=== PATIENT | male | born 1970 ===

== ENCOUNTER 2020-08-11 11:28 | Outpatient (REF) | payer BC, SELFPAY ==
[2020-08-11 14:01] LABS: MANUAL DIFF FLAG NO
[2020-08-11 14:02] LABS: Basophils Absolute Auto 0.1 X10*3/uL (0.0-0.2); Basophils Percent Auto 0.7 % (0-2); Eosinophils Absolute Auto 0.2 X10*3/uL (0.0-0.4); Hematocrit 47.1 % (42-52); Imm Gran Abs Auto 0.03 X10*3/uL (0.00-0.03); Imm Gran Pct Auto 0.4 % (0.0-0.4); Lymphocytes Absolute Auto 1.6 X10*3/uL (1.2-4.9); Lymphocytes Percent Auto 22.3 % (20-40); Mean Corpuscular Hemoglobin 31.4 pg (27.0-33.0); Mean Corpuscular Volume 92.4 fL (80-98); Mean Platelet Volume 10.1 fL (9.4-12.4); Monocytes Absolute Auto 0.3 X10*3/uL (0.1-1.2); Monocytes Percent Auto 4.2 % (2-11); Neutrophils Absolute Auto 5.2 X10*3/uL (2.0-8.3); Neutrophils Percent Auto 70.4 % (45-73); Platelet Count 203 X10*3/uL (160-400); Red Cell Distribution Width 11.9 % (11.0-16.0); White Blood Count 7.3 X10*3/uL (4.8-10.8)
[2020-08-11 14:08] LABS: Glucose Urine UA NEG (NEG); Leukocyte Esterase Urine NEG (NEG); Nitrite Urine NEG (NEG); PH 5.5 (5.0-8.0); Urine Blood NEG (NEG); Urine Ketones NEG (NEG); Urine Protein NEG (NEG-TRACE)
[2020-08-11 14:09] LABS: Appearance Urine CLEAR; Color Urine YELLOW; UACC Culture Trigger NO
[2020-08-11 14:28] LABS: Anion Gap 13 (12-20); Blood Urea Nitrogen 15 mg/dL (9-16); Calcium 9.2 mg/dL (8.4-10.2); Carbon Dioxide 28 mmol/L (22-29); Chloride 105 mmol/L (96-108); Estimated Glomerular Filt Rate > 60; Glucose Random 90 mg/dL (60-115); Potassium 4.8 mmol/l (3.3-5.1); Sodium 141 mmol/L (135-145)
[2020-08-11 14:45] LABS: Estimated Average Glucose 111 mg/dL; Hemoglobin A1c % 5.5 %
[2020-08-11 14:51] LABS: TSH reflex Free T4 0.78 mIU/mL (0.32-4.0)
[2020-08-12 07:01] LABS: LDL Cholesterol Direct 125 mg/dL (<100)
== END 2020-08-11 11:29 | disposition home or self-care (01) ==
LOC: HO.HMGCLDS 11:28
PROVIDERS: PCP Internal Medicine; Visit Provider Internal Medicine
DX: E66.9 Obesity, unspecified (principal); E78.9 Disorder of lipoprotein metabolism, unspecified; R73.03 Prediabetes; Z72.0 Tobacco use; R39.198 Other difficulties with micturition
CPT/HCPCS: 36415; 80048; 81003; 83036; 83721; 84443; 85025

== ENCOUNTER → 2020-09-22 13:20 | Outpatient (BNVA) | payer BC, SELFPAY | PROVIDERS: Visit Provider Urology | DX: Z76.89 Persons encountering health services in other specified circumstances (principal) ==

== ENCOUNTER 2020-10-30 11:23 | Outpatient (REF) | payer BC, SELFPAY ==
[2020-11-05 14:47] LABS: Testosterone, Free 50.5 pg/mL (35.0-155.0); Testosterone, Total 244 ng/dL (250-1100)
== END 2020-10-30 11:24 | disposition home or self-care (01) ==
LOC: HO.HMGCLDS 11:23
PROVIDERS: PCP Internal Medicine; Visit Provider Urology
DX: E29.1 Testicular hypofunction (principal); R39.12 Poor urinary stream
CPT/HCPCS: 36415; 84402; 84403

== ENCOUNTER → 2020-11-06 15:28 | Outpatient (BNVA) | payer BC, SELFPAY | PROVIDERS: PCP Internal Medicine; Visit Provider Urology ==

== ENCOUNTER 2020-11-13 10:27 | Outpatient (REF) | payer BC, SELFPAY ==
--- NOTE | ~2020-11-13 | US_ITS ---
EXAMINATION: US PELVIS LIMITED (BLADDER) CLINICAL INFORMATION: Poor urinary stream. COMPARISON: None TECHNIQUE: Real-time imaging of the bladder. FINDINGS: BLADDER: Well distended and normal. Bilateral ureteral jets are demonstrated. Prevoid bladder volume is 248 mL. Postvoid bladder volume is 76 mL. Prostate volume is 69.5 mL. There is moderate enlargement of the prostate with extension into the base of the bladder. US/US bladder IMPRESSION: [id number] postvoid residual bladder volume. [id number] prostate enlargement extending into the base of the bladder.
[2020-11-13 17:27] LABS: Prostate Specific Antigen 4.82 ng/mL (<0.05-4.0)
[2020-11-15 00:32] LABS: Follicle Stimulating Hormone 5.6 mIU/mL (1.6-8.0); Lutenizing Hormone 2.8 mIU/mL (1.5-9.3)
[2020-11-16 22:33] LABS: Estradiol Ultra Sensitive 21 pg/mL (< OR = 29)
[2020-11-22 15:16] LABS: Testosterone, Free 59.8 pg/mL (35.0-155.0); Testosterone, Total 286 ng/dL (250-1100)
== END 2020-11-13 10:28 | disposition home or self-care (01) ==
LOC: HO.HMGCX 10:27
PROVIDERS: Visit Provider Urology
DX: R39.12 Poor urinary stream (principal); N40.1 Benign prostatic hyperplasia with lower urinary tract symptoms; N13.8 Other obstructive and reflux uropathy; E29.1 Testicular hypofunction; R68.82 Decreased libido
CPT/HCPCS: 36415; 76857; 82670; 83001; 83002; 84153; 84402; 84403

== ENCOUNTER → 2020-12-18 14:52 | Outpatient (BNVA) | payer BC, SELFPAY | PROVIDERS: PCP Internal Medicine; Visit Provider Urology ==

== ENCOUNTER 2021-01-22 11:13 | Outpatient (REF) | payer BC, SELFPAY ==
[2021-01-22 15:08] LABS: Prostate Specific Antigen 5.34 ng/mL (<0.05-4.0)
[2021-01-23 10:21] LABS: Lutenizing Hormone 5.1 mIU/mL (1.5-9.3)
[2021-01-27 12:07] LABS: Testosterone, Free 78.7 pg/mL (35.0-155.0); Testosterone, Total 382 ng/dL (250-1100)
== END 2021-01-22 11:14 | disposition home or self-care (01) ==
LOC: HO.HMGCLDS 11:13
PROVIDERS: PCP Internal Medicine; Visit Provider Urology
DX: E29.1 Testicular hypofunction (principal); R39.12 Poor urinary stream; Z12.5 Encounter for screening for malignant neoplasm of prostate
CPT/HCPCS: 36415; 83002; 84153; 84402; 84403

== ENCOUNTER → 2021-01-28 15:45 | Outpatient (BNVA) | payer BC, SELFPAY | PROVIDERS: PCP Internal Medicine; Visit Provider Urology ==

== ENCOUNTER 2021-03-22 12:17 | Outpatient (REF) | payer BC, SELFPAY ==
[2021-03-22 13:51] LABS: MANUAL DIFF FLAG NO
[2021-03-22 14:06] LABS: Basophils Percent Auto 0.3 % (0-2); Eosinophils Absolute Auto 0.1 X10*3/uL (0.0-0.4); Eosinophils Percent Auto 1.9 % (0-4); Hemoglobin 14.8 g/dl (14.0-18.0); Imm Gran Abs Auto 0.01 X10*3/uL (0.00-0.03); Imm Gran Pct Auto 0.1 % (0.0-0.4); Lymphocytes Absolute Auto 1.9 X10*3/uL (1.2-4.9); Lymphocytes Percent Auto 25.3 % (20-40); Mean Corpuscular HGB Conc 32.9 g/dl (31.0-36.0); Mean Corpuscular Hemoglobin 30.3 pg (27.0-33.0); Mean Platelet Volume 10.1 fL (9.4-12.4); Monocytes Absolute Auto 0.4 X10*3/uL (0.1-1.2); Monocytes Percent Auto 5.2 % (2-11); Neutrophils Absolute Auto 4.9 X10*3/uL (2.0-8.3); Neutrophils Percent Auto 67.2 % (45-73); Platelet Count 170 X10*3/uL (160-400); Red Blood Count 4.89 X10*6/uL (4.60-5.80); Red Cell Distribution Width 12.4 % (11.0-16.0); White Blood Count 7.3 X10*3/uL (4.8-10.8)
[2021-03-22 14:16] LABS: Alanine Aminotransferase 27 U/L (0-40); Albumin Level 4.3 g/dL (3.5-5.0); Alkaline Phosphatase 33 U/L (39-117); Anion Gap 12 (12-20); Aspartate Amino Transferase 19 U/L (5-37); Bilirubin Total 0.4 mg/dL (0.0-1.0); Blood Urea Nitrogen 18 mg/dL (9-16); Calcium 9.4 mg/dL (8.4-10.2); Carbon Dioxide 24 mmol/L (22-29); Chloride 109 mmol/L (96-108); Estimated Glomerular Filt Rate > 60; Glucose Random 99 mg/dL (60-115); Potassium 4.5 mmol/L (3.3-5.1); Sodium 140 mmol/L (135-145); Total Protein 6.5 g/dL (6.5-8.0)
[2021-03-22 14:43] LABS: Erythrocyte Sedimentation Rate 1 MM/HR (0-15)
== END 2021-03-22 12:18 | disposition home or self-care (01) ==
LOC: HO.LAB 12:17
PROVIDERS: PCP Internal Medicine; Visit Provider Physician Assistant
DX: Z01.818 Encounter for other preprocedural examination (principal); R10.11 Right upper quadrant pain; R13.10 Dysphagia, unspecified; R19.7 Diarrhea, unspecified; R74.01 Elevation of levels of liver transaminase levels
CPT/HCPCS: 36415; 80053; 85025; 85652; 86140

== ENCOUNTER 2021-06-07 08:43 | Day surgery (SDC) | payer BC, SELFPAY ==
[2021-06-01 14:07] VITALS: BMI 38.6
--- NOTE | 2021-06-04 08:51 | HO.ANESPROP2 ---
Documented by User: Kassie Pretty NP 06/04/21 08:53 HPI - Anesthesia Eval Consult details Narrative: 51yo M for Upper Endoscopy and Colonoscopy [facility] Active Problems Active Problems: All Active Problems (Updated 06/01/21 @ 14:10 by Taya Sanchez, ANA MARIA) Weak urinary stream (Acute) Low libido (Acute) BPH w urinary obs/LUTS (Acute) Low testosterone (Acute) Encounter for general adult medical examination with abnormal findings (Acute) Sleep-wake schedule disorder, frequently changing type (Acute) Colon cancer screening (Acute) Difficulty swallowing (Acute) Abdominal pain (Acute) Difficulty urinating (Acute) Obesity (Acute) Lung nodule < 6cm on CT (Acute) Erectile disorder, generalized, mild (Acute) Lipid disorder (Acute) Pre-diabetes (Acute) Tobacco abuse (Acute) Past Medical History Medical History COVID-19 vaccine series completed Difficulty urinating Erectile disorder, generalized, mild Lipid disorder Lung nodule < 6cm on CT Obesity Pre-diabetes Sleep apnea Tobacco abuse Family History Family History Father Bipolar disorder Alzheimer's disease, early onset Mother Breast cancer Fibromyalgia Maternal Grandfather No problems noted. Maternal Grandmother Type 2 diabetes mellitus Paternal Grandfather Pancreatic cancer Paternal Grandmother Lung cancer Smoker Sister No problems noted. Sister No problems noted. Son No problems noted. Surgical History Surgical History History of adenoidectomy History of ankle surgery Social History Social History Household Members Other:: and son- Are you a primary wound care specialist to a significant other at home: No Do you presently have visiting nurse or other home services: No Alcohol intake: current Alcohol intake frequency: holidays/special occasions only Patient Tobacco Use Status: Current everyday Tobacco user Tobacco use type: Cigarette Cigarette Packs Per Day: 0.5 Cigarettes Per Day: 10 Use of substances other than those prescribed or required for medical reasons: No Are you DNR?: No Advance Directives Information Provided: No (states is -will look for HCP form to bring copy DOS) Advance Directives on File: No Recently lost weight without trying: No Eating poorly because of decreased appetite: No Nutrition Risks: No Nutritional Risk Current occupation: Retired - [employer] Meds Allergies Allergy/AdvReac Type Severity Reaction Status Date / Time tamsulosin AdvReac Stomach Verified 06/04/21 12:13 Upset Environmental Allergy Mild allergy Uncoded 06/01/21 14:12 symptoms Home Medications Medication Instructions Recorded Confirmed Last Taken Type cholecalciferol (vitamin D3) 25 25 mcg PO DAILY 08/11/20 06/01/21 Unknown History mcg (1,000 unit) capsule Exam Exam Date and Time: June 04, 2021 0851 Height,Weight and Vital Signs: Height 6 ft Weight 129.274 kg Pertinent Lab Results Pertinent Lab Results: Laboratory Tests 03/22/21 03/22/21 13:35 13:35 WBC 7.3 Hgb 14.8 Hct 45.0 Plt Count 170 Sodium 140 Potassium 4.5 Chloride 109 H Carbon Dioxide 24 BUN 18 H Creatinine 1.23 Assessment and Plan Assessment Anesthesia Assessment: Chart Reviewed Documented by User: Saida Bustamante MD 06/07/21 09:52 PMFSH Past Medical History Medical History COVID-19 vaccine series completed Difficulty urinating Erectile disorder, generalized, mild Lipid disorder Lung nodule < 6cm on CT Obesity Pre-diabetes Sleep apnea Tobacco abuse Family History Family History Father Bipolar disorder Alzheimer's disease, early onset Mother Breast cancer Fibromyalgia Maternal Grandfather No problems noted. Maternal Grandmother Type 2 diabetes mellitus Paternal Grandfather Pancreatic cancer Paternal Grandmother Lung cancer Smoker Sister No problems noted. Sister No problems noted. Son No problems noted. Surgical History Surgical History History of adenoidectomy History of ankle surgery History of Problems with Anesthesia: No Social History Social History Household Members Other:: and son- Are you a primary wound care specialist to a significant other at home: No Do you presently have visiting nurse or other home services: No Alcohol intake: current Alcohol intake frequency: holidays/special occasions only Patient Tobacco Use Status: Current everyday Tobacco user Tobacco use type: Cigarette Cigarette Packs Per Day: 0.5 Cigarettes Per Day: 10 Use of substances other than those prescribed or required for medical reasons: No Are you DNR?: No Advance Directives Information Provided: No (states is -will look for HCP form to bring copy DOS) Advance Directives on File: No Recently lost weight without trying: No Eating poorly because of decreased appetite: No Nutrition Risks: No Nutritional Risk Current occupation: Retired - [employer] Meds Allergies Allergy/AdvReac Type Severity Reaction Status Date / Time tamsulosin AdvReac Stomach Verified 06/04/21 12:13 Upset Environmental Allergy Mild allergy Uncoded 06/01/21 14:12 symptoms Home Medications Medication Instructions Recorded Confirmed Last Taken Type cholecalciferol (vitamin D3) 25 25 mcg PO DAILY 08/11/20 06/01/21 Unknown History mcg (1,000 unit) capsule Exam Airway Mallampati Class: II TM Dist: >3cm Neck ROM: Full Heart: RRR Lungs: CTA Assessment and Plan Final Anesthetic Review History of Problems with Anesthesia: No
[2021-06-07 09:13] VITALS: BP 131/86; PULSE 77; RESP 18; TEMP 36.6; O2SAT 97
[2021-06-07] MEDS: Lactated Ringers 1,000 ML 100 ML IVCONT (09:18)
--- NOTE | 2021-06-07 09:25 | MHC.SHP ---
Pre-Procedural Eval Section A Date of Service: 06/07/21 Section B Chief Complaint: Screening, Dysphagia Details of Present Illness: hx of panreas cancer Relevant Family History (Specify if Yes): Yes Relevant Social History: Tobacco Use Present Medications: see Short Stay Collaborative assessment Medical History: Significant History (Difficulty urinating Erectile disorder, generalized, mild Lipid disorder Lung nodule < 6cm on CT Obesity Pre-diabetes Sleep apnea Tobacco abuse) History of Previous Operations: Relevant previous surgery/procedure and date(s) (History of adenoidectomy History of ankle surgery) Allergies: Allergies Allergy/AdvReac Type Severity Reaction Status Date / Time tamsulosin AdvReac Stomach Verified 06/04/21 12:13 Upset Environmental Allergy Mild allergy Uncoded 06/01/21 14:12 symptoms Review of Systems Sugical H&P ROS: Negative: Constitution, Cardiovascular, Respiratory, Neurological, Psychiatric, Hem-Onc, Allergic/Immunologic, Gastrointestinal, Genitourinary, Musculoskeletal, Integumentary, Endocrine and Eyes/Ears/Nose/Throat Exam Surgical H&P Exam: Normal: HEENT, Normal: Heart, Normal: Lungs, Normal: Extremities, Normal: Abdomen, Normal: Skin and Normal: Neurological Plan Diagnosis/Plan: Unchanged I have reviewed the history and physical and performed a pertinent physical examination on my patient. No changes have occurred unless specified.
--- NOTE | 2021-06-07 10:20 | P.OP_ITS ---
Operative Note Operative Note Date of Service: 06/07/21 Narrative: Operative Information Procedure Description: EGD, Colonoscopy FLEXIBLE TRANSORAL UPPER GASTROINTESTINAL ENDOSCOPY AND COLONOSCOPY PROCEDURE NOTE UPPER ENDOSCOPY Consent: Indications for the procedure and potential complications of bleeding, perforation, reaction to medications and missed diagnosis were discussed with the patient and informed consent was obtained. Instrument: Olympus GIF H 190 J mid size upper endoscope Monitoring: Vital signs and clinical assessment, continuous EKG monitoring, Pulse oximetry, Carbon Dioxide monitoring and blood pressure monitoring were done throughout the procedure. Procedure: The patient was placed in the left lateral decubitis position and pre-procedure medications were administered and a bite block was placed. The endoscope was inserted into the mouth and advanced under direct vision to the third part of duodenum. A careful inspection was made as the upper endoscope was withdrawn including a retroflexed examination of the proximal stomach; Findings and interventions are described below. Findings: Larynx:normal Esophagus: GE junction at 42 cm, diaphragm hiatus at 42 cm, LA grade A erosive esophagitis with few islands of barretts appearing mucosa, bx taken from GEJ and random esophagus. LEs extremely lax. Balloon dilation done in lower esophagus and UES, no tears noted. Stomach: Patchy erythematous mucosa. Biopsies were obtained. Grade 3 flap valve on retroflexed examination of the cardia. Duodenum: Normal bulb and descending duodenum, bx taken Intervention: Biopsies as noted above COLONOSCOPY Instrument: Olympus variable stiffness adult scope 190L Colonoscopy Monitoring: Vital signs and clinical assessment, continuous EKG monitoring, Pulse oximetry, Carbon Dioxide monitoring and blood pressure monitoring were done throughout the procedure. Colon withdrawal time was 6 minutes. Procedure: The patient was placed in the left lateral decubitis position and pre-procedure medications were administered. After a digital rectal examination of the ano-rectum, the video colonoscope was inserted into the rectum and advanced through the colon to the cecum/TI. The colonoscope was slowly withdrawn in a retrograde panoramic fashion and the colon mucosa was carefully examined including a retroflexed view of the rectum. Findings and interventions are described below. Procedure Difficulty:easy Findings: Terminal Ileum-normal Cecum: 10 mm sessile polyp at appendiceal orifice removed with cold snare Ascending Colon: normal Transverse Colon -normal Descending Colon:normal Sigmoid Colon: normal Rectum: Retroflexion with small internal hemorrhoids, grade I Anorectum - normal Colon preparation: Hastings Bowel Preparation Scale Right colon; 2 Transverse colon: 2 Left colon; 2 (0 = Unprepared colon segment with mucosa not seen due to solid stool that cannot be cleared. 1 = Portion of mucosa of the colon segment seen, but other areas of the colon segment not well seen due to staining, residual stool and/or opaque liquid. 2 = Minor amount of residual staining, small fragments of stool and/or opaque liquid, but mucosa of colon segment seen well. 3 = Entire mucosa of colon segment seen well with no residual staining, small fragments of stool or opaque liquid) Impression and Post Procedure Diagnosis: Endoscopy Findings: erosive esophagitis gastritis possible barretts Colonoscopy Findings: polyp internal hemorrhoids Plan: Await Pathology results Repeat Colonoscopy in 5 years due to polyp found today or earlier if clinically indicated High fiber diet leaflet avoid straining at stool, epsom salts and sitz bath, anusol supps or cream reflux precautions consider increasing omeprazole dose to 40 mg OD Above findings were reviewed with the patient and relevant handouts were provided if indicated.
--- NOTE | 2021-06-07 10:20 | P.BOP_ITS ---
Brief Operative Note Date of Service: 06/07/21 Pre-op diagnosis: globus sensation and lower abdo pain, screening colonoscopy Post-op diagnosis: same Procedure: see op note Surgeon: Christopher Lake MD Anesthesia: MAC Was an Blasting Cap Assembler used for this Procedure?: No Estimated blood loss (mL): 0 Condition: stable Disposition: PACU
[2021-06-07 11:23] VITALS: BP 116/71; PULSE 78; RESP 16; TEMP 36.1; O2SAT 95
[2021-06-07 11:38] VITALS: BP 133/81; PULSE 73; RESP 18; TEMP 36.1; O2SAT 99
--- NOTE | 2021-06-07 13:22 | HO.POSTANES ---
Post Anesthesia Evaluation Post Anesthesia Evaluation Vital Signs: Vital Signs Temp Pulse Resp BP Pulse Ox 06/07/21 11:38 97.0 F 73 18 133/81 99 06/07/21 11:23 97 F 78 16 116/71 95 06/07/21 09:13 97.8 F 77 18 131/86 97 Anesthesia: Monitored Mental Status: Awake Pain Control: Satisfactory Nausea/Vomiting: None Hydration: Adequate Anesthesia-Related Issues: No Anes. Related Issues
== END 2021-06-07 12:15 | disposition home or self-care (01) ==
PROVIDERS: PCP Internal Medicine; Visit Provider Internal Medicine Gastroenterology
PROC: (CPT 45385; principal; 2021-06-07 10:20)
DX: Z12.11 Encounter for screening for malignant neoplasm of colon (principal); D12.0 Benign neoplasm of cecum; K64.0 First degree hemorrhoids; R13.10 Dysphagia, unspecified; K22.8 Other specified diseases of esophagus; K29.50 Unspecified chronic gastritis without bleeding; K20.80 Other esophagitis without bleeding; R73.03 Prediabetes; R91.1 Solitary pulmonary nodule; G47.30 Sleep apnea, unspecified; F17.210 Nicotine dependence, cigarettes, uncomplicated; Z79.899 Other long term (current) drug therapy
CPT/HCPCS: 45385; 43249; 43239; 88305; 88342; C1726

== ENCOUNTER → 2021-06-17 11:30 | Outpatient (BNVA) | payer BC, SELFPAY | PROVIDERS: PCP Internal Medicine; Visit Provider Physician Assistant ==

== ENCOUNTER → 2021-06-22 08:30 | Outpatient (BNVA) | payer BC, SELFPAY | PROVIDERS: PCP Internal Medicine; Referring Provider Internal Medicine; Visit Provider Psychiatry & Neurology Neurology ==

== ENCOUNTER 2021-06-30 08:43 | Outpatient (REF) | payer BC, SELFPAY ==
--- NOTE | ~2021-06-30 | US_ITS ---
EXAMINATION: US ABDOMEN COMPLETE CLINICAL INFORMATION: Abdominal pain. COMPARISON: Ultrasound bladder 11/13/2020. TECHNIQUE: Real-time imaging of the abdominal viscera. FINDINGS: PANCREAS: The head of the pancreas is normal. The body and tail are not well visualized due to bowel gas. ABDOMINAL AORTA: The distal segment is normal in caliber. The upper and mid abdominal aorta is not well visualized due to bowel gas. INFERIOR VENA CAVA: Not well visualized due to bowel gas. LIVER: Liver echotexture is increased. The liver is slightly enlarged.. The liver contour is normal. No focal hepatic lesion. There is no intrahepatic biliary duct dilatation seen. GALLBLADDER: There is a 6 x 7 mm echogenic lesion adjacent to the gallbladder wall that does not shadow questionable for a polyp versus adherent bile or sludge. No definite gallstones are seen. The gallbladder is normal in size. The gallbladder wall is normal in thickness.. COMMON BILE DUCT: Normal in caliber measuring 0.4 cm in diameter. RIGHT KIDNEY: Normal. No hydronephrosis. No renal calculi or focal parenchymal lesions. The kidney measures 12.6 cm in maximum dimension. LEFT KIDNEY: Normal. No hydronephrosis. No renal calculi or focal parenchymal lesions. The kidney measures 12.6 cm in maximum dimension. SPLEEN: Normal. The spleen measures 12.7 cm in maximum dimension. FREE FLUID: None. US/US abdomen complete IMPRESSION: Slightly enlarged echogenic liver probably representing fatty infiltration. Question a 6 x 7 mm gallbladder wall polyp versus adherent bile or sludge. Limited visualization of the pancreas and aorta.
[2021-06-30 11:54] LABS: Blood Urea Nitrogen 15 mg/dL (9-16); Estimated Glomerular Filt Rate > 60
== END 2021-06-30 08:44 | disposition home or self-care (01) ==
LOC: HO.HMGCX 08:43
PROVIDERS: PCP Internal Medicine; Visit Provider Physician Assistant
DX: R10.9 Unspecified abdominal pain (principal); K21.9 Gastro-esophageal reflux disease without esophagitis
CPT/HCPCS: 36415; 76700; 82565; 84520

== ENCOUNTER 2021-07-05 08:38 | Outpatient (REF) | payer BC, SELFPAY ==
--- NOTE | ~2021-07-05 | CT_ITS ---
EXAMINATION: CT ABDOMEN AND PELVIS WITH CONTRAST CLINICAL INFORMATION: Abdominal pain. COMPARISON: None. TECHNIQUE: Multidetector volumetric images were obtained from the superior aspect of the liver through the pubic symphysis following administration 85 mL of Omnipaque 350 intravenous contrast. Sagittal and coronal reformatted images were obtained on the technologist's workstation. Oral contrast: No This CT examination was performed using dose optimization techniques as appropriate, variously including the following: *Automated exposure control *Adjustment of mA and/or kV according to patient size (this includes techniques or standardized protocols for targeted exams where dose is matched to indication/reason for exam; i.e. extremities or head) *Use of iterative reconstruction technique DLP: 822 mGy-cm. FINDINGS: LUNG BASES: The visualized lung bases are unremarkable. LIVER, GALLBLADDER, AND BILIARY TREE: The liver is enlarged in size measuring 19 cm, normal shape, and diffusely hypoattenuated. No focal hepatic lesion or biliary ductal dilatation is present. The gallbladder is unremarkable with no evidence of radiopaque gallstones, gallbladder wall thickening, or obvious pericholecystic inflammatory changes. PANCREAS: Unremarkable. SPLEEN: Unremarkable. ADRENAL GLANDS: Unremarkable. KIDNEYS AND URETERS: The kidneys are normal in size, shape, and attenuation. No hydronephrosis, hydroureter, or calculi seen. No perinephric stranding. BLADDER: Unremarkable. GASTROINTESTINAL TRACT: There is moderate scattered stool and gas seen throughout the colon without distention. The appendix is normal caliber. The small bowel loops and the terminal ileum appears normal. ABDOMINAL WALL: There is mild focal atrophy lateral abdominal wall internal oblique muscle musculature resulting in small incomplete hernia on axial image 36/3. LYMPH NODES: There are small retroperitoneal lymph nodes. The largest left retrocrural lymph node measures 1.1 cm axial image 37/3. VASCULAR: There is mild sclerotic changes of abdominal aorta without aneurysmal dilatation. PELVIC VISCERA: The prostate gland is mildly enlarged. There is a 1.4 cm heterogeneous nodule left pelvis with eccentric focal calcification. Question fat necrosis. Best visualized on axial image 74/3. OSSEOUS STRUCTURES: No lytic or sclerotic process seen. There is mild ventral spondylosis lower dorsal spine. CT/CT abdomen pelvis w con IMPRESSION: No acute intra-abdominal process seen. Mild constipation. Left lateral abdominal wall incomplete hernia. Hepatic steatosis with borderline hepatomegaly. No focal lesion seen.
[2021-07-05] MEDS: iohexoL 350 MG/ML 100 ML INFUS..BTL 85 ML IV (09:15)
== END 2021-07-05 08:39 | disposition home or self-care (01) ==
LOC: HO.CT 08:38
PROVIDERS: Visit Provider Physician Assistant
DX: R10.9 Unspecified abdominal pain (principal)
CPT/HCPCS: 74177; Q9967

== ENCOUNTER 2021-07-07 08:11 | Outpatient (REF) | payer BC, SELFPAY ==
[2021-07-07 11:34] LABS: MANUAL DIFF FLAG NO
[2021-07-07 11:40] LABS: Basophils Percent Auto 0.6 % (0-2); Eosinophils Absolute Auto 0.2 X10*3/uL (0.0-0.4); Eosinophils Percent Auto 4.8 % (0-4); Hematocrit 40.7 % (42-52); Hemoglobin 13.8 g/dl (14.0-18.0); Imm Gran Abs Auto 0.01 X10*3/uL (0.00-0.03); Imm Gran Pct Auto 0.2 % (0.0-0.4); Lymphocytes Absolute Auto 1.5 X10*3/uL (1.2-4.9); Lymphocytes Percent Auto 29.1 % (20-40); Mean Corpuscular HGB Conc 33.9 g/dl (31.0-36.0); Mean Corpuscular Hemoglobin 30.7 pg (27.0-33.0); Mean Corpuscular Volume 90.6 fL (80-98); Mean Platelet Volume 10.3 fL (9.4-12.4); Monocytes Absolute Auto 0.4 X10*3/uL (0.1-1.2); Monocytes Percent Auto 8.6 % (2-11); Neutrophils Absolute Auto 2.8 X10*3/uL (2.0-8.3); Neutrophils Percent Auto 56.7 % (45-73); Platelet Count 162 X10*3/uL (160-400); Red Blood Count 4.49 X10*6/uL (4.60-5.80); Red Cell Distribution Width 12.2 % (11.0-16.0)
[2021-07-07 12:02] LABS: Alanine Aminotransferase 31 U/L (0-40); Alkaline Phosphatase 37 U/L (39-117); Anion Gap 9 (12-20); Aspartate Amino Transferase 28 U/L (5-37); Bilirubin Total 0.2 mg/dL (0.0-1.0); Blood Urea Nitrogen 21 mg/dL (9-16); Calcium 8.7 mg/dL (8.4-10.2); Carbon Dioxide 26 mmol/L (22-29); Chloride 109 mmol/L (96-108); Cholesterol 180 mg/dL; Estimated Glomerular Filt Rate > 60; Glucose Fasting 109 mg/dL (60-99); HDL Cholesterol 33 mg/dL; LDL Cholesterol Calculated 106 mg/dl; Potassium 4.4 mmol/L (3.3-5.1); Sodium 140 mmol/L (135-145); Total Protein 5.9 g/dL (6.5-8.0); Triglycerides 207 mg/dL
[2021-07-07 12:05] LABS: Estimated Average Glucose 105 mg/dL; Hemoglobin A1c % 5.3 %
[2021-07-11 16:36] LABS: Testosterone, Free 34.5 pg/mL (35.0-155.0); Testosterone, Total 146 ng/dL (250-1100)
== END 2021-07-07 08:12 | disposition home or self-care (01) ==
LOC: HO.HMGCLDS 08:11
PROVIDERS: Urology; PCP Internal Medicine; Visit Provider Internal Medicine
DX: E78.9 Disorder of lipoprotein metabolism, unspecified (principal); E66.9 Obesity, unspecified; R73.03 Prediabetes; E29.1 Testicular hypofunction; R79.89 Other specified abnormal findings of blood chemistry; Z72.0 Tobacco use
CPT/HCPCS: 36415; 80053; 80061; 83036; 84402; 84403; 85025

== ENCOUNTER → 2021-07-30 10:21 | Outpatient (BNVA) | payer BC, SELFPAY | PROVIDERS: PCP Internal Medicine; Visit Provider Urology ==

== ENCOUNTER → 2021-08-02 19:28 | Outpatient (REF) | payer BC, SELFPAY | LOC: HO.SL 19:28 | PROVIDERS: PCP Internal Medicine; Visit Provider Psychiatry & Neurology Neurology | DX: G47.10 Hypersomnia, unspecified (principal); R06.83 Snoring | CPT/HCPCS: 95810 ==

== ENCOUNTER 2022-01-31 11:44 | Outpatient (REF) | payer BC, SELFPAY ==
[2022-01-31 14:39] LABS: Prostate Specific Antigen 5.05 ng/mL (<0.05-4.0)
[2022-02-05 11:17] LABS: Testosterone, Total 283 ng/dL (250-1100)
== END 2022-01-31 11:45 | disposition home or self-care (01) ==
LOC: HO.HMGCLDS 11:44
PROVIDERS: Visit Provider Urology
DX: Z12.5 Encounter for screening for malignant neoplasm of prostate (principal); R79.89 Other specified abnormal findings of blood chemistry
CPT/HCPCS: 36415; 84153; 84403

== ENCOUNTER → 2022-02-04 11:32 | Outpatient (BNVA) | payer BC, SELFPAY | PROVIDERS: PCP Internal Medicine; Visit Provider Urology | DX: Z13.89 Encounter for screening for other disorder (principal) ==

== ENCOUNTER 2022-02-09 06:00 | Outpatient (REF) | payer BC, SELFPAY ==
[2022-02-09 11:17] LABS: MANUAL DIFF FLAG NO
[2022-02-09 11:25] LABS: Basophils Percent Auto 0.7 % (0-2); Eosinophils Absolute Auto 0.3 X10*3/uL (0.0-0.4); Eosinophils Percent Auto 5.6 % (0-4); Hematocrit 42.8 % (42.0-52.0); Imm Gran Abs Auto 0.01 X10*3/uL (0.00-0.03); Imm Gran Pct Auto 0.2 % (0.0-0.4); Lymphocytes Absolute Auto 1.7 X10*3/uL (1.2-4.9); Lymphocytes Percent Auto 27.7 % (20-40); Mean Corpuscular HGB Conc 32.7 g/dl (31.0-36.0); Mean Corpuscular Hemoglobin 30.2 pg (27.0-33.0); Mean Corpuscular Volume 92.4 fL (80.0-98.0); Mean Platelet Volume 10.2 fL (9.4-12.4); Monocytes Absolute Auto 0.3 X10*3/uL (0.1-1.2); Monocytes Percent Auto 5.3 % (2-11); Neutrophils Absolute Auto 3.7 x10*3/uL (2.0-8.3); Neutrophils Percent Auto 60.5 % (45-73); Platelet Count 172 X10*3/uL (160-400); Red Blood Count 4.63 X10*6/uL (4.60-5.80); Red Cell Distribution Width 12.3 % (11.0-16.0); White Blood Count 6.1 X10*3/uL (4.8-10.8)
[2022-02-09 11:36] LABS: Estimated Average Glucose 114 mg/dL; Hemoglobin A1c % 5.6 %
[2022-02-09 11:46] LABS: Alanine Aminotransferase 17 U/L (0-40); Alkaline Phosphatase 37 U/L (39-117); Anion Gap 11 (12-20); Aspartate Amino Transferase 20 U/L (5-37); Bilirubin Total 0.4 mg/dL (0.0-1.0); Blood Urea Nitrogen 14 mg/dL (9-16); Carbon Dioxide 23 mmol/L (22-29); Chloride 109 mmol/L (96-108); Cholesterol 189 mg/dL; Estimated Glomerular Filt Rate > 60; Glucose Fasting 110 mg/dL (60-99); HDL Cholesterol 32 mg/dL; LDL Cholesterol Calculated 104 mg/dl; Potassium 4.3 mmol/L (3.3-5.1); Sodium 139 mmol/L (135-145); Total Protein 6.1 g/dL (6.5-8.0); Triglycerides 269 mg/dL
== END 2022-02-09 06:01 | disposition home or self-care (01) ==
LOC: HO.HMGCLDS 06:00
PROVIDERS: Visit Provider Internal Medicine
DX: E66.9 Obesity, unspecified (principal); E78.9 Disorder of lipoprotein metabolism, unspecified; R73.03 Prediabetes; Z72.0 Tobacco use
CPT/HCPCS: 36415; 80053; 80061; 83036; 85025

== ENCOUNTER 2022-03-15 07:37 | Outpatient (REF) | payer BC, SELFPAY ==
[2022-03-15 07:45] VITALS: BMI 38.0
[2022-03-15 07:46] VITALS: BP 151/87; PULSE 86; RESP 16; TEMP 36.7; O2SAT 96
--- NOTE | 2022-03-15 08:22 | W.PM.OPN ---
Operative Note Operative Note Date of Service: 03/15/22 Narrative: Preoperative diagnosis: Elevated PSA Postoperative diagnosis: Elevated PSA Procedure: 1. transrectal ultrasound measurement of prostate 2. transrectal ultrasound-guided pudendal nerve block 3. transrectal ultrasound-guided prostate biopsy 12 core Surgeon: Dr. Akhil Tripathi Anesthetic: Local Indications for procedure: Elevated PSA 5.1 Procedure: After informed consent was verified, the patient was brought into the procedure area and lay left-hand side down on the table. Patient identity confirmed. Perioperative antibiotics confirmed. Iodine 10cc with Gel was placed per rectum Ultrasound probe was placed per rectum The prostate was measured in 3 dimensions Total volume equals 70 gm There were no cystic structures and no calcifications noted and the prostate was homogeneous in nature A ultrasound-guided pudendal nerve block was performed using 10 cc of 1% lidocaine. 8 cc was placed at the base and 2 cc of the apex. A 12 core biopsy was performed with 6 cores each side. Two cores were taken at the apex, mid and base. Cores were spaced between lateral and medial. He tolerated the procedure well. Was able to ambulate to bathroom after 5 minutes. Printed instructions regarding antibiotic use and common side effects such as low-grade temperature and bleeding were given Pathology: 12 core prostate biopsy.
== END 2022-03-15 07:38 | disposition home or self-care (01) ==
LOC: HO.MS 07:37
PROVIDERS: PCP Internal Medicine; Visit Provider Urology
PROC: (CPT 55700; principal; 2022-03-15 08:00)
DX: R97.20 Elevated prostate specific antigen [PSA] (principal)
CPT/HCPCS: 55700; 76942; 88305

== ENCOUNTER 2022-09-16 12:01 | Outpatient (REF) | payer BC, SELFPAY ==
[2022-09-23 01:43] LABS: Testosterone, Total 323 ng/dL (250-1100)
== END 2022-09-16 12:02 | disposition home or self-care (01) ==
LOC: HO.HMGCLDS 12:01
PROVIDERS: Visit Provider Urology
DX: E29.1 Testicular hypofunction (principal); R79.89 Other specified abnormal findings of blood chemistry; Z12.5 Encounter for screening for malignant neoplasm of prostate
CPT/HCPCS: 36415; 84153; 84403

== ENCOUNTER 2023-02-24 06:06 | Outpatient (REF) | payer BC, SELFPAY ==
[2023-02-24 11:25] LABS: MANUAL DIFF FLAG NO
[2023-02-24 11:54] LABS: Basophils Percent Auto 0.7 % (0-2); Eosinophils Absolute Auto 0.2 X10*3/uL (0.0-0.4); Eosinophils Percent Auto 4.3 % (0-4); Hematocrit 45.9 % (42.0-52.0); Hemoglobin 15.2 g/dl (14.0-18.0); Imm Gran Abs Auto 0.01 X10*3/uL (0.00-0.03); Imm Gran Pct Auto 0.2 % (0.0-0.4); Lymphocytes Absolute Auto 1.7 X10*3/uL (1.2-4.9); Lymphocytes Percent Auto 30.7 % (20-40); Mean Corpuscular HGB Conc 33.1 g/dl (31.0-36.0); Mean Corpuscular Volume 90.5 fL (80.0-98.0); Mean Platelet Volume 10.2 fL (9.4-12.4); Monocytes Absolute Auto 0.4 X10*3/uL (0.1-1.2); Monocytes Percent Auto 6.4 % (2-11); Neutrophils Absolute Auto 3.3 x10*3/uL (2.0-8.3); Neutrophils Percent Auto 57.7 % (45-73); Platelet Count 187 X10*3/uL (160-400); Red Blood Count 5.07 X10*6/uL (4.60-5.80); Red Cell Distribution Width 12.3 % (11.0-16.0); White Blood Count 5.6 X10*3/uL (4.8-10.8)
[2023-02-24 12:29] LABS: Estimated Average Glucose 111 mg/dL; Hemoglobin A1c % 5.5 %
[2023-02-24 12:35] LABS: Alanine Aminotransferase 32 U/L (0-40); Albumin Level 4.1 g/dL (3.5-5.0); Alkaline Phosphatase 44 U/L (39-117); Anion Gap 11 (12-20); Aspartate Amino Transferase 22 U/L (5-37); Bilirubin Total 0.5 mg/dL (0.0-1.0); Blood Urea Nitrogen 17 mg/dL (9-16); Calcium 9.4 mg/dL (8.4-10.2); Carbon Dioxide 25 mmol/L (22-29); Chloride 111 mmol/L (96-108); Cholesterol 188 mg/dL; Estimated Glomerular Filt Rate > 60; Glucose Fasting 120 mg/dL (60-99); HDL Cholesterol 29 mg/dL; LDL Cholesterol Calculated 115 mg/dl; Potassium 4.6 mmol/L (3.3-5.1); Prostate Specific Antigen 7.32 ng/mL (<0.05-4.0); Sodium 142 mmol/L (135-145); Total Protein 6.2 g/dL (6.5-8.0); Triglycerides 222 mg/dL
[2023-02-24 12:37] LABS: TSH reflex Free T4 1.32 uIU/mL (0.32-4.0)
[2023-03-02 11:03] LABS: Testosterone, Total 254 ng/dL (250-1100)
== END 2023-02-24 06:07 | disposition home or self-care (01) ==
LOC: HO.HMGCLDS 06:06
PROVIDERS: Urology; PCP Internal Medicine; Visit Provider Internal Medicine
DX: Z00.01 Encounter for general adult medical examination with abnormal findings (principal); Z12.5 Encounter for screening for malignant neoplasm of prostate; R79.89 Other specified abnormal findings of blood chemistry; R73.03 Prediabetes; E66.01 Morbid (severe) obesity due to excess calories; E78.9 Disorder of lipoprotein metabolism, unspecified; Z72.0 Tobacco use
CPT/HCPCS: 36415; 80053; 80061; 83036; 84153; 84403; 84443; 85025

== ENCOUNTER 2023-03-22 05:51 | Inpatient (IN) | payer BC, SELFPAY ==
--- NOTE | ~2023-03-22 | CT_ITS ---
EXAMINATION: CT ABDOMEN AND PELVIS WITH CONTRAST CLINICAL INFORMATION: Pancreatitis COMPARISON: CT abdomen pelvis 07/05/2021 TECHNIQUE: Multidetector volumetric images were obtained from the superior aspect of the liver through the pubic symphysis following administration 85 mL of Omnipaque 350 intravenous contrast. Sagittal and coronal reformatted images were obtained on the technologist's workstation. Oral contrast: No This CT examination was performed using dose optimization techniques as appropriate, variously including the following: *Automated exposure control *Adjustment of mA and/or kV according to patient size (this includes techniques or standardized protocols for targeted exams where dose is matched to indication/reason for exam; i.e. extremities or head) *Use of iterative reconstruction technique DLP: 157 mGy-cm FINDINGS: LUNG BASES: The visualized lung bases are unremarkable. LIVER, GALLBLADDER, AND BILIARY TREE: The liver is enlarged measuring 21.4 cm in greatest dimension. Attenuation is decreased consistent with hepatic steatosis. No focal hepatic lesion or biliary ductal dilatation is present. There is a small amount of pericholecystic fluid present. Some of this could be secondary to inflammatory change from pancreatitis (see below). No calcified gallstones are seen. PANCREAS: The pancreas is abnormal with inflammatory change surrounding the majority of the gland consistent with pancreatitis. No portion of the gland lacks enhancement to suggest necrosis. No well-formed fluid collections are seen. SPLEEN: Spleen is enlarged at 13.7 cm. ADRENAL GLANDS: Unremarkable. KIDNEYS AND URETERS: The kidneys are normal in size, shape, and attenuation. No hydronephrosis, hydroureter, or calculi seen. No perinephric stranding. BLADDER: Unremarkable. GASTROINTESTINAL TRACT: There is some mild inflammatory change around the second and third portions of the duodenum presumably secondary to above-mentioned pancreatitis. The small and large bowel are otherwise unremarkable. The appendix is unremarkable. ABDOMINAL WALL: No significant hernia is appreciated. Tiny periumbilical hernia seen containing only fat. LYMPH NODES: No retroperitoneal lymphadenopathy. Some small preaortic lymph nodes are unchanged. VASCULAR: Unremarkable. Portal venous system widely patent. No splenic vein thrombosis. No pseudoaneurysms. PELVIC VISCERA: There is mild BPH. Seminal vesicles appear normal. OSSEOUS STRUCTURES: Unremarkable. CT/CT abdomen pelvis w IV con IMPRESSION: 1. Acute uncomplicated pancreatitis. 2. Enlarged fatty liver with associated mild splenomegaly. 3. Other incidental findings as described above. Fleischner guidelines were followed.
--- NOTE | ~2023-03-22 | US_ITS ---
EXAMINATION: US ABDOMEN LIMITED CLINICAL INFORMATION: Increased LFTs. Question common bile duct stone. COMPARISON: Previous CT of the abdomen and pelvis from earlier the same day TECHNIQUE: Real-time imaging of the right upper quadrant abdominal viscera. FINDINGS: PANCREAS: Not seen due to bowel gas LIVER: Liver echotexture is increased suggestive of fatty infiltration. Liver is slightly enlarged. The liver is normal in contour.. No focal hepatic lesion. There is no intrahepatic biliary duct dilatation seen. GALLBLADDER: Gallbladder is normal in size. There is a 9 x 6 x 8 mm echogenic nonmobile nonshadowing density adjacent to the gallbladder wall suggestive of a polyp. No definite gallstones are seen. The gallbladder wall does not appear thickened or edematous. No pericholecystic fluid is seen. The photo technologist does not report that the patient is tender over the gallbladder. COMMON BILE DUCT: Normal in caliber measuring 0.4 cm in diameter. RIGHT KIDNEY: Normal. No hydronephrosis. No renal calculi or focal parenchymal lesions. The kidney measures 11.8 cm in maximum dimension. FREE FLUID: None. US/US abdomen limited IMPRESSION: Enlarged echogenic liver suggestive of fatty infiltration. Normal caliber intrahepatic and extrahepatic bile ducts. No common bile duct stone seen. Probable gallbladder wall polyp measuring 9 x 6 x 8 mm. Six-month gallbladder ultrasound follow-up recommended. No gallstones.
[2023-03-22 05:58] VITALS: BP 118/66; BP 123/67; PULSE 80; PULSE 86; RESP 16; TEMP 36.4; O2SAT 92; O2SAT 95; BMI 38.0
--- NOTE | 2023-03-22 06:04 | ED_ITS ---
HPI - Abdominal Pain General Chief Complaint: Abdominal Pain Stated Complaint: abd pain Time Seen by Provider: 03/22/23 06:04 Source: patient Mode of arrival: EMS Limitations: no limitations History of Present Illness HPI narrative: Patient has history of chronic GERD had buffalo chicken and 23:00 last night woke up at 03:00 with diffuse abdominal pain and distension with loose watery bowel movements and nausea and vomiting a few times no fever no chills pain is diffuse in abdomen patient at same food and she does not have any symptoms no prior history of similar abdominal pain no prior abdominal surgeries no recent alcohol use Related Data Previous Rx's Medication Instructions Recorded omeprazole 20 mg capsule,delayed 40 mg PO DAILY 30 days #60 caps 06/17/21 release terazosin 5 mg capsule 5 mg PO BEDTIME #90 caps 02/04/22 clomiphene citrate 50 mg tablet 50 mg PO .COMPLEX hypogonadism 90 03/22/22 days #60 tabs sildenafil 100 mg tablet 100 mg PO ONCE PRN sexual activity 09/22/22 30 days #30 tabs tadalafil 10 mg tablet 10 mg PO DAILY PRN sexual activity 09/22/22 90 days #90 tabs tadalafil 20 mg tablet 20 mg PO ONCE PRN sexual activity 09/22/22 30 days #30 tabs Allergies Allergy/AdvReac Type Severity Reaction Status Date / Time tamsulosin AdvReac Stomach Verified 02/17/23 08:37 Upset Environmental Allergy Mild allergy Uncoded 09/22/22 09:42 symptoms Review of Systems Review of Systems Yes all other systems are reviewed and are negative PMFSH Past Medical History Medical History COVID-19 vaccine series completed Difficulty urinating Erectile disorder, generalized, mild Lipid disorder Lung nodule < 6cm on CT Obesity Pre-diabetes Sleep apnea Tobacco abuse Surgical History History of adenoidectomy History of ankle surgery History of esophagogastroduodenoscopy (EGD) Hx of colonoscopy Family History Family History Father Bipolar disorder Alzheimer's disease, early onset Mother Breast cancer Fibromyalgia Maternal Grandfather No problems noted. Maternal Grandmother Type 2 diabetes mellitus Paternal Grandfather Pancreatic cancer Paternal Grandmother Lung cancer Smoker Sister No problems noted. Sister No problems noted. Son No problems noted. Social History Social History Household Members Other:: and son- Housing: House Are you a primary palliative care specialist to a significant other at home: No Do you presently have visiting nurse or other home services: No Alcohol intake: never Patient Tobacco Use Status: Current everyday Tobacco user Tobacco use type: Cigarette Cigarette Packs Per Day: 0.5 Cigarettes Per Day: 10 Smoked in Last 30 Days: No Use of substances other than those prescribed or required for medical reasons: No Advance Directives: No Current occupational status: employed and retired Current occupation: Retired - [employer] Cognitive needs: No Hearing needs: No Vision needs: No Physical Exam ED Vital Signs: Vital Signs - 24 hr 03/22/23 05:58 Temperature 97.5 F Pulse Rate 80 Respiratory Rate 16 Blood Pressure 118/66 Pulse Oximetry 92 Oxygen Delivery Method Room Air BMI result Body Mass Index 38.0 Appearance: Alert. Oriented X3. No acute distress. Eyes: No pallor/icterus ENT: Pharynx normal. Oral Mucosa moist Neck: Normal inspection. Neck supple. CVS: Normal heart rate and rhythm. Pulses normal. Respiratory: No respiratory distress. Equal air entry bilateral, Abdomen: Soft diffuse tenderness no rebound tenderness or guarding. Bowel sounds are present, no mass palpable, no CVA tenderness Skin: Skin warm and dry. Normal skin color. Normal skin turgor. Extremities: No lower extremity edema. No calf tenderness Neuro: Oriented X 3. Medical Decision Making Medical Decision Making [facility] Narrative: Patient likely with a viral gastroenteritis/pancreatitis, will check labs IV fluids IV Zofran Patient non alcoholic with normal triglyceride the past lab workup showed elevated lipase and LFTs likely pancreatitis possible from gallstone patient although never had history of gallstones will do CT scan planned for admission patient signed out to Dr. Brizuela for disposition after CT scan Differential Diagnosis Differential Diagnoses: The differential diagnosis associated with the presentation includes Gastritis/gastroenteritis/pancreatitis/cholecystitis Lab Data [facility] Lab Attestation statement: I reviewed the patient's lab results. 03/22/23 06:18 03/22/23 06:18 Labs: Lab Results 03/22/23 03/22/23 Range/Units 06:18 06:18 WBC 10.1 (4.8-10.8) X10*3/uL RBC 5.10 (4.60-5.80) X10*6/uL Hgb 15.5 (14.0-18.0) g/dl Hct 45.9 (42.0-52.0) % MCV 90.0 (80.0-98.0) fL MCH 30.4 (27.0-33.0) pg MCHC 33.8 (31.0-36.0) g/dl RDW 12.2 (11.0-16.0) % Plt Count 181 (160-400) X10*3/uL MPV 9.7 (9.4-12.4) fL Immature Gran % (Auto) 0.3 (0.0-0.4) % Neut % (Auto) 80.0 H (45-73) % Lymph % (Auto) 12.6 L (20-40) % [place] % (Auto) 5.2 (2-11) % Eos % (Auto) 1.6 (0-4) % Baso % (Auto) 0.3 (0-2) % Lymph # (Auto) 1.3 (1.2-4.9) X10*3/uL [place] # (Auto) 0.5 (0.1-1.2) X10*3/uL Eos # (Auto) 0.2 (0.0-0.4) X10*3/uL Baso # (Auto) 0.0 (0.0-0.2) X10*3/uL Abs Immat Gran (auto) 0.03 (0.00-0.03) X10*3/uL Absolute Neuts (auto) 8.1 (2.0-8.3) x10*3/uL Absolute Nucleated RBC 0.000 (0.0-0.012) X10*3/uL Nucleated RBC % (auto) 0.0 (0.0-0.2) /100WBC Sodium 143 (135-145) mmol/L Potassium 4.3 (3.3-5.1) mmol/L Chloride 111 H (96-108) mmol/L Carbon Dioxide 26 (22-29) mmol/L Anion Gap 10 L (12-20) BUN 14 (9-16) mg/dL Creatinine 1.09 (0.5-1.4) mg/dL Estim Creat Clear Calc 107.9 Estimated GFR > 60 Random Glucose 166 H (60-115) mg/dL Calcium 9.3 (8.4-10.2) mg/dL Total Bilirubin 0.8 (0.0-1.0) mg/dL AST 135 H (5-37) U/L ALT 101 H (0-40) U/L Alkaline Phosphatase 50 (39-117) U/L Total Protein 6.4 L (6.5-8.0) g/dL Albumin 4.0 (3.5-5.0) g/dL Lipase > 3000 H (8-78) U/L Medications Administered Discontinued Medications Generic Name Dose Route Start Last Admin Trade Name Freq PRN Reason Stop Dose Admin Sodium Chloride 1,000 mls @ 999 mls/hr 03/22/23 06:05 03/22/23 06:33 Ns IV 03/22/23 07:05 999 mls/hr .Q1H1M ONE Administration Morphine Sulfate 2 mg 03/22/23 06:32 03/22/23 06:36 Morphine Sulfate 2 Mg/Ml Cartridge IVPUSH 03/22/23 06:33 2 mg ONCE ONE Administration Protocol Ondansetron HCl 4 mg 03/22/23 06:05 03/22/23 06:33 Ondansetron Hcl 4 Mg/2 Ml Vial IVPUSH 03/22/23 06:06 4 mg ONCE ONE Administration Discharge Plan Discharge Clinical Impression: Acute pancreatitis Patient Disposition: Still a Patient Prescriptions: No Action omeprazole 20 mg capsule,delayed release(DR/EC) 40 mg PO DAILY 30 Days Qty: 60 8RF tadalafil 20 mg tablet 20 mg PO ONCE PRN (Reason: sexual activity) 30 Days Qty: 30 0RF tadalafil 10 mg tablet 10 mg PO DAILY PRN (Reason: sexual activity) 90 Days Qty: 90 1RF sildenafil 100 mg tablet 100 mg PO ONCE PRN (Reason: sexual activity) 30 Days Qty: 30 1RF Rx Instructions: administer 60 minutes before intended activity terazosin 5 mg capsule 5 mg PO BEDTIME Qty: 90 2RF clomiphene citrate 50 mg tablet 50 mg PO .COMPLEX 90 Days Qty: 60 3RF Rx Instructions: 50 mg orally three times a week; $[id number] [facility]
[2023-03-22 06:21] LABS: MANUAL DIFF FLAG NO
[2023-03-22 06:31] LABS: Basophils Percent Auto 0.3 % (0-2); Eosinophils Absolute Auto 0.2 X10*3/uL (0.0-0.4); Eosinophils Percent Auto 1.6 % (0-4); Hematocrit 45.9 % (42.0-52.0); Hemoglobin 15.5 g/dl (14.0-18.0); Imm Gran Abs Auto 0.03 X10*3/uL (0.00-0.03); Imm Gran Pct Auto 0.3 % (0.0-0.4); Lymphocytes Absolute Auto 1.3 X10*3/uL (1.2-4.9); Lymphocytes Percent Auto 12.6 % (20-40); Mean Corpuscular HGB Conc 33.8 g/dl (31.0-36.0); Mean Corpuscular Hemoglobin 30.4 pg (27.0-33.0); Mean Platelet Volume 9.7 fL (9.4-12.4); Monocytes Absolute Auto 0.5 X10*3/uL (0.1-1.2); Monocytes Percent Auto 5.2 % (2-11); Neutrophils Absolute Auto 8.1 x10*3/uL (2.0-8.3); Platelet Count 181 X10*3/uL (160-400); Red Cell Distribution Width 12.2 % (11.0-16.0); White Blood Count 10.1 X10*3/uL (4.8-10.8)
[2023-03-22] MEDS: ondansetron HCL 4 MG/2 ML VIAL IVPUSH ×2 (06:33→14:58)
[2023-03-22] MEDS: 0.9 % Sodium Chloride 1,000 ML 999 ML IV (06:33)
[2023-03-22] MEDS: Morphine Sulfate 2 MG/ML CARTRIDGE IVPUSH ×2 (06:36→07:11)
[2023-03-22 06:45] LABS: Alanine Aminotransferase 101 U/L (0-40); Alkaline Phosphatase 50 U/L (39-117); Anion Gap 10 (12-20); Aspartate Amino Transferase 135 U/L (5-37); Bilirubin Total 0.8 mg/dL (0.0-1.0); Blood Urea Nitrogen 14 mg/dL (9-16); Calcium 9.3 mg/dL (8.4-10.2); Carbon Dioxide 26 mmol/L (22-29); Chloride 111 mmol/L (96-108); Creatinine Clr Calc Pharmacy 107.9; Estimated Glomerular Filt Rate > 60; Glucose Random 166 mg/dL (60-115); Lipase > 3000 U/L (8-78); Potassium 4.3 mmol/L (3.3-5.1); Sodium 143 mmol/L (135-145); Total Protein 6.4 g/dL (6.5-8.0)
[2023-03-22] MEDS: iohexoL 350 MG/ML 100 ML INFUS..BTL 85 ML IV (07:46)
--- NOTE | 2023-03-22 08:33 | PHA.MEDREC ---
Pharmacy Consult ? Medication Reconciliation Pharmacy has completed the medication reconciliation.
[2023-03-22] MEDS: HYDROmorphone HCl 2 MG/ML VIAL IVPUSH (09:35)
[2023-03-22] MEDS: 0.9 % Sodium Chloride 1,000 ML 150 ML IVCONT (09:37)
--- NOTE | 2023-03-22 12:17 | PM.IMHP ---
History of Present Illness Date of Service: 03/22/23 Attending physician on admission: Reji Salinas Chief Complaint: abd pain 53-year-old male with history of morbid obesity, GERD, BPH had recent biopsy, erectile disorder: Patient came to the hospital because patient having abdominal pain is is left upper and mid abdomen , nausea vomiting of 1d ay duration. Patient says that he has on and off abdominal discomfort from 1months but it was not as bad as currently. he said yesterday he ate buffalo chicken wing-started having severe abdominal pain nausea vomiting after that . Denies any fever or chills. Is is abdominal pain is mostly left-sided radiating that to the back, sharp, 9/10 intensity, got somewhat better with the pain medications. Denies any new complaint of chest pain or shortness of breath or fever or chills or cough or weakness or numbness. Lab imaging reviewed : cbc seems fine. bmp:bun/cr : 14/1.09 ast/alt: 135/[address] abd: Acute uncomplicated pancreatitis. Enlarged fatty liver with associated mild splenomegaly. Review of Systems Review of Systems: as above. [facility] Medical History COVID-19 vaccine series completed Difficulty urinating Erectile disorder, generalized, mild Lipid disorder Lung nodule < 6cm on CT Obesity Pre-diabetes Sleep apnea Tobacco abuse Family History Father Bipolar disorder Alzheimer's disease, early onset Mother Breast cancer Fibromyalgia Maternal Grandfather No problems noted. Maternal Grandmother Type 2 diabetes mellitus Paternal Grandfather Pancreatic cancer Paternal Grandmother Lung cancer Smoker Sister No problems noted. Sister No problems noted. Son No problems noted. Surgical History History of adenoidectomy History of ankle surgery History of esophagogastroduodenoscopy (EGD) Hx of colonoscopy Social History Household Members Other:: and son- Housing: House Are you a primary manager respiratory care to a significant other at home: No Do you presently have visiting nurse or other home services: No Alcohol intake: never Patient Tobacco Use Status: Current everyday Tobacco user Tobacco use type: Cigarette Cigarette Packs Per Day: 0.5 Cigarettes Per Day: 10 Smoked in Last 30 Days: No Use of substances other than those prescribed or required for medical reasons: No Advance Directives: No Current occupational status: employed and retired Current occupation: Retired - [employer] Cognitive needs: No Hearing needs: No Vision needs: No Meds Allergies Allergy/AdvReac Type Severity Reaction Status Date / Time tamsulosin AdvReac Stomach Verified 02/17/23 08:37 Upset Environmental Allergy Mild allergy Uncoded 09/22/22 09:42 symptoms Active Medications: Current Medications Doxazosin Mesylate (Doxazosin Mesylate 2 Mg Tablet) 4 mg PO BEDTIME SARAH Enoxaparin Sodium (Enoxaparin Sodium 40 Mg/0.4 Ml Syringe) 40 mg SUBCUT Q24H [facility] Sodium Chloride (Ns) 1,000 mls @ 150 mls/hr IVCONT .Q6H40M [facility] Last Admin: 03/22/23 09:37 Dose: 150 mls/hr Lactated Ringer's (Lr) 1,000 mls @ 125 mls/hr IVCONT .Q8H SARAH Morphine Sulfate (Morphine Sulfate 4 Mg/Ml Cartridge) 3 mg IVPUSH Q4H PRN; Protocol PRN Reason: Pain, Mild (Pain Scale 1-3) Ondansetron HCl (Ondansetron Hcl 4 Mg/2 Ml Vial) 4 mg IVPUSH Q4H PRN PRN Reason: nausea Pantoprazole Sodium (Pantoprazole Sodium 40 Mg/10 Ml Vial) 40 mg IVPUSH BID [facility] Sodium Chloride (0.9 % Sodium Chloride Flush 3 Ml Syringe) 3 ml IVFLUSH QSHIFT [facility] Physical Exam Vital Signs and Narrative: Vital Signs: Last Vital Signs Temp 97.5 F 03/22/23 05:58 Pulse 80 03/22/23 05:58 Resp 16 03/22/23 05:58 BP 118/66 03/22/23 05:58 Pulse Ox 92 03/22/23 05:58 O2 Del Method Room Air 03/22/23 05:58 BMI result Body Mass Index 38.0 Appearance: Alert.? Oriented X3.?has abd pain.? Eyes: Pupils equal, round and reactive to light.? Sclera nonicteric.? ENT: Pharynx normal.? Moist mucous membranes. cvs: rrr, [id number] , no murmur res: clear to auscultation ,no rhonchii or wheezing abd: no rebound or guarding ,left mid abd pain, bs present. ext pulses present , no cyanosis . neuro: axo3 , nonfocal. Results Labs 03/22/23 06:18 03/22/23 06:18 Labs: Laboratory Results - last 24 hr 03/22/23 03/22/23 06:18 06:18 MCV 90.0 MCH 30.4 MCHC 33.8 RDW 12.2 Plt Count 181 MPV 9.7 Immature Gran % (Auto) 0.3 Neut % (Auto) 80.0 H Lymph % (Auto) 12.6 L [place] % (Auto) 5.2 Eos % (Auto) 1.6 Baso % (Auto) 0.3 Lymph # (Auto) 1.3 [place] # (Auto) 0.5 Eos # (Auto) 0.2 Baso # (Auto) 0.0 Abs Immat Gran (auto) 0.03 Absolute Neuts (auto) 8.1 Absolute Nucleated RBC 0.000 Nucleated RBC % (auto) 0.0 Anion Gap 10 L Estim Creat Clear Calc 107.9 Estimated GFR > 60 Random Glucose 166 H Calcium 9.3 Total Bilirubin 0.8 AST 135 H ALT 101 H Alkaline Phosphatase 50 Total Protein 6.4 L Albumin 4.0 Lipase > 3000 H Imaging Radiologist's Impressions: Impressions Abdomen/Pelvis CT 03/22/23 07:40 IMPRESSION: 1. Acute uncomplicated pancreatitis. 2. Enlarged fatty liver with associated mild splenomegaly. 3. Other incidental findings as described above. Fleischner guidelines were followed. Assessment and Plan (1) Acute pancreatitis: Status: Acute (2) Morbid obesity due to excess calories: Status: Acute (3) Elevated PSA: Status: Acute (4) Erectile dysfunction: Status: Acute Plan 53-year-old male with history of morbid obesity, GERD, BPH had recent biopsy, erectile disorder: 1. Acute pancreatitis-? Etiology unclear He said he quit alcohol few months back ALT AST elevated,lipase in 3000, mild fatty liver changes/splenomegaly on CT scan. Will add abdominal ultrasound, added hepatitis screen, lipid panel Bowel rest, IV fluid, pain management with IV morphine, antiemetics. Trend BMP and LFTs, lipase level. Gi eval 2. GERD: Switched to PPI. 3. The erectile disorder: Continue home medications. 4. BPH: Elevated PSA, status post recent biopsy Continue terazosin, patient says that he follows up outpatient with Dr. Tripathi. 5. Mild hyperglycemia:? Possible related to acute sickness/pancreatitis/IV fluids Will check hemoglobin A1c level. DVT prophylaxis: SubQ Lovenox Patient may benefit from inpatient stay for 2 days-considering acute pancreatitis and able to tolerate food need IV hydration and IV pain medications as well as GI workup. Time Spent With Patient Time: Total time managing care of this patient today ____ minutes. Quality Stroke Does the patient have a stroke diagnosis?: No VTE Prior VTE?: No VTE Risk Level:: Medical - moderate - high VTE Device Contraindication: N/A - Device Ordered VTE Drug Contraindication: N/A - Med Ordered
[2023-03-22] MEDS: Lactated Ringers 1,000 ML 125 ML IVCONT ×2 (12:43→21:07)
[2023-03-22] MEDS: Pantoprazole Sodium 40 MG/10 ML VIAL IVPUSH ×2 (12:45→19:35)
[2023-03-22 12:49] LABS: HBc Num1 0.05 S/CO (0.00-0.79); Hepatitis B Core Antibody Nonreactive (Nonreactive); Hepatitis B Surface Antigen Negative (Negative); ~HepC Num1 0.05 S/CO (0.00-0.79); ~Hepatitis A Antibody IgM Nonreactive (Nonreactive); ~Hepatitis B Surface Antibody NONREACTIVE (Nonreactive); ~Hepatitis C Antibody Nonreactive (Nonreactive)
--- NOTE | 2023-03-22 13:39 | PM.GICN ---
History of Present Illness Data of Consult Service Date: 03/22/23 Requesting physician: Reji Salinas Primary Care Provider: Aidee Walker MD HPI Reason for consult: pancreatitis 53-year-old male with history of morbid obesity, GERD, BPH and fatty liver being seen for assessment for pancreatitis. Patient had 1 d of worsening severe 9/10, sharp epigastric pain radiating into the back with nausea and non bloody emesis. sx seem to have came after eating buffalo chicken wing. No exacerbating factors but better with pain medications. Denies any fever or chills. No chest pain or shortness of breath. he does admit to getting similar pains on and off maybe once a month, usu worse with milk and dairy. These attacks are usu mild and never require admission, going on fro few years now. He denies alcohol use but is a smoker 3/4 pack per day, no new drugs and no herbal meds. Grandfather had pancreas cancer. Lab cbc normal bmp:bun/cr : 14/1.09 ast/alt: 135/101 Lipase >3000 IMAGING: ?Acute uncomplicated pancreatitis. ?Enlarged fatty liver with associated mild splenomegaly. Review of Systems Review of Systems: Constitutional : No Weight loss, No Fever, No Chills ENT/Mouth : No sore throat, No Rhinorrhea Eyes: No Swelling, No Redness Cardiovascular : No Chest Pain, No SOB, No Edema Respiratory : No Cough, No Sputum, No Wheezing Gastrointestinal : see HPI Genitourinary : NO Dysuria, No Urinary Frequency, No Hematuria, No Urgency Musculoskeletal : No joint pain, No Myalgias, No Joint Swelling Skin : No Skin Lesions, No rash Neuro : No Weakness, No Numbness, No Dizziness, No Headache Psych : No Anxiety/Panic, No Depression Heme/Lymph: No Bruising, No Lymphadenopathy Endocrine : No Polyuria, No Polydipsia All other systems reviewed and are negative. [facility] Past Medical History Medical History COVID-19 vaccine series completed Difficulty urinating Erectile disorder, generalized, mild Lipid disorder Lung nodule < 6cm on CT Obesity Pre-diabetes Sleep apnea Tobacco abuse Family History Family History Father Bipolar disorder Alzheimer's disease, early onset Mother Breast cancer Fibromyalgia Maternal Grandfather No problems noted. Maternal Grandmother Type 2 diabetes mellitus Paternal Grandfather Pancreatic cancer Paternal Grandmother Lung cancer Smoker Sister No problems noted. Sister No problems noted. Son No problems noted. Surgical History Surgical History History of adenoidectomy History of ankle surgery History of esophagogastroduodenoscopy (EGD) Hx of colonoscopy Social History Social History Household Members: Spouse Household Members Other:: and son- Housing: House Are you a primary care aide to a significant other at home: No Do you presently have visiting nurse or other home services: No Alcohol intake: never Patient Tobacco Use Status: Current everyday Tobacco user Tobacco use type: Cigarette Cigarette Packs Per Day: 0.5 Cigarettes Per Day: 15 Second Hand Smoke Exposure: No Current occupational status: employed and retired Current occupation: Retired - [employer] Cognitive needs: No Hearing needs: No Vision needs: No Meds Allergies Allergy/AdvReac Type Severity Reaction Status Date / Time tamsulosin AdvReac Stomach Verified 02/17/23 08:37 Upset Environmental Allergy Mild allergy Uncoded 09/22/22 09:42 symptoms Active Medications: Current Medications Doxazosin Mesylate (Doxazosin Mesylate 2 Mg Tablet) 4 mg PO BEDTIME [facility] Enoxaparin Sodium (Enoxaparin Sodium 40 Mg/0.4 Ml Syringe) 40 mg SUBCUT Q24H [facility] Sodium Chloride (Ns) 1,000 mls @ 150 mls/hr IVCONT .Q6H40M [facility] Last Admin: 03/22/23 09:37 Dose: 150 mls/hr Lactated Ringer's (Lr) 1,000 mls @ 125 mls/hr IVCONT .Q8H [facility] Last Admin: 03/22/23 12:43 Dose: 125 mls/hr Morphine Sulfate (Morphine Sulfate 4 Mg/Ml Cartridge) 3 mg IVPUSH Q4H PRN; Protocol PRN Reason: Pain, Mild (Pain Scale 1-3) Ondansetron HCl (Ondansetron Hcl 4 Mg/2 Ml Vial) 4 mg IVPUSH Q4H PRN PRN Reason: nausea Pantoprazole Sodium (Pantoprazole Sodium 40 Mg/10 Ml Vial) 40 mg IVPUSH BID [facility] Last Admin: 03/22/23 12:45 Dose: 40 mg Sodium Chloride (0.9 % Sodium Chloride Flush 3 Ml Syringe) 3 ml IVFLUSH QSHIFT SARAH Physical Exam Vital Signs: Vital Signs: Last Vital Signs Temp 97.5 F 03/22/23 05:58 Pulse 80 03/22/23 05:58 Resp 16 03/22/23 05:58 BP 118/66 03/22/23 05:58 Pulse Ox 92 03/22/23 05:58 O2 Del Method Room Air 03/22/23 05:58 BMI result Body Mass Index 38.0 EXAM: GENERAL: The patient is well developed and nontoxic, obese VITAL SIGNS:see workflow HEENT: Nonicteric sclerae, PERRLA, EOMI. Oropharynx clear. Moist mucous membranes. Conjunctivae appear well perfused. No thyroid mass. CHEST: Chest wall is nontender. HEART: Regular rate and rhythm without murmurs. LUNGS: Clear to auscultation bilaterally. ABDOMEN: Soft, positive bowel sounds, tender epigastrium, no organomegaly.no flank tenderness SKIN: No rash, no excessive bruising, petechiae, or purpura. NEUROLOGIC: Cranial nerves II-XII intact without motor/sensory deficit. Psych: Appearance: grossly normal Results Labs 03/22/23 06:18 03/22/23 06:18 Labs: Short CBC 03/22/23 Range/Units 06:18 WBC 10.1 (4.8-10.8) X10*3/uL Hgb 15.5 (14.0-18.0) g/dl Hct 45.9 (42.0-52.0) % Plt Count 181 (160-400) X10*3/uL BMP 03/22/23 06:18 Sodium 143 Potassium 4.3 Chloride 111 H Carbon Dioxide 26 BUN 14 Creatinine 1.09 Calcium 9.3 Liver Function 03/22/23 Range/Units 06:18 Total Bilirubin 0.8 (0.0-1.0) mg/dL AST 135 H (5-37) U/L ALT 101 H (0-40) U/L Alkaline Phosphatase 50 (39-117) U/L Albumin 4.0 (3.5-5.0) g/dL Imaging CT scan - abdomen: My impression: inflammed edematous pancreas with associated stranding and inflammation, cbd looks ok, fluid around GB as well Assessment and Plan (1) Acute pancreatitis: Status: Acute Plan 1/ Acute pancreatitis, interstitial, possibly from gallstones, microlithiasis, SOD dysfunction. gallstones might be more realistic given his chronic background pain worse with food hawa dairy. PLAN: 1/ check celiac markers, igG4 2/ US GB 3/ MRI in 4-6 weeks 4/ strongly recommended on smoking abstinence as can promote chronic pancreatitis 5/ can try trental 400 mg tid, anti oxidant may help 6/ cont wih analgesia and fluid resuscitaton 7/ diet as tolerated Time Spent With Patient Time: Total time managing care of this patient today ____ minutes. Procedures Date of Service Date of Service: 03/22/23
[2023-03-22 14:26] LABS: HBS Num1 1.46 mIU/mL (0-7.99); HBsAGNum1 0.32 S/CO (0.00-0.99); Hepatitis A Antibody IgM 0.21 Index (0-0.79)
[2023-03-22] MEDS: Morphine Sulfate 4 MG/ML CARTRIDGE 3 MG IVPUSH (15:01)
[2023-03-22 15:13] VITALS: BP 131/73; PULSE 73; RESP 16; TEMP 36.6; O2SAT 95
[2023-03-22 15:19] LABS: Estimated Average Glucose 105 mg/dL; Hemoglobin A1c % 5.3 %
--- NOTE | 2023-03-22 16:08 | PC.NURSE ---
called for report at [phone] ,ED RN unable to give report ,will call us later
--- NOTE | 2023-03-22 16:16 | PC.NURSE ---
no need for telemetry monitoring per dr. Salinas
[2023-03-22 16:51] VITALS: BP 130/68; PULSE 74; RESP 22; TEMP 36.3; O2SAT 96
[2023-03-22] MEDS: HYDROmorphone HCl 1 MG/ML SYRINGE IVPUSH ×2 (17:34→21:34)
[2023-03-22 19:00] VITALS: BP 135/73; PULSE 77; RESP 18; TEMP 36.8; O2SAT 96
[2023-03-22] MEDS: Doxazosin Mesylate 2 MG TABLET 4 MG PO (19:35)
[2023-03-22 23:40] VITALS: BP 132/60; PULSE 75; RESP 18; TEMP 36.3; O2SAT 95
[2023-03-23] VITALS (7 sets, daily range): BP systolic 126–141; BP diastolic 60–76; PULSE 77–86; RESP 16–20; TEMP 36.1–37.4; O2SAT 93–95
[2023-03-23] MEDS: HYDROmorphone HCl 1 MG/ML SYRINGE IVPUSH ×6 (02:56→23:58)
[2023-03-23] MEDS: Lactated Ringers 1,000 ML 125 ML IVCONT ×3 (05:01→23:58)
[2023-03-23 07:04] LABS: Alanine Aminotransferase 63 U/L (0-40); Albumin Level 3.4 g/dL (3.5-5.0); Alkaline Phosphatase 45 U/L (39-117); Anion Gap 9 (12-20); Aspartate Amino Transferase 34 U/L (5-37); Bilirubin Total 0.7 mg/dL (0.0-1.0); Blood Urea Nitrogen 11 mg/dL (9-16); Calcium 8.5 mg/dL (8.4-10.2); Carbon Dioxide 26 mmol/L (22-29); Chloride 109 mmol/L (96-108); Cholesterol 147 mg/dL; Creatinine Clr Calc Pharmacy 136.7; Estimated Glomerular Filt Rate > 60; Glucose Random 96 mg/dL (60-115); HDL Cholesterol 26 mg/dL; LDL Cholesterol Calculated 76 mg/dl; Lipase 206 U/L (8-78); Potassium 3.9 mmol/L (3.3-5.1); Sodium 140 mmol/L (135-145); Total Protein 5.4 g/dL (6.5-8.0); Triglycerides 227 mg/dL
[2023-03-23] MEDS: Pantoprazole Sodium 40 MG/10 ML VIAL IVPUSH ×2 (07:48→20:15)
--- NOTE | 2023-03-23 11:56 | MHC.CM.PN ---
Male 53 DX Pancreatitis Lives with his . He is independent with all functional mobility. He is employed. DP home self care. Patient will arrange for transportation home.
--- NOTE | 2023-03-23 12:49 | HO.PM.IMPN ---
Subjective Subjective Date of Service: 03/23/23 Interval History: abd pain Review of Systems Still has significant abdominal pain, feel nauseated. Denies any fever or chills or cough or phlegm. Physical Exam Vital Signs: Vital Signs: Last Vital Signs Temp 99.1 F 03/23/23 11:19 Pulse 86 03/23/23 11:19 Resp 20 03/23/23 11:19 BP 129/70 03/23/23 11:19 Pulse Ox 95 03/23/23 11:19 O2 Del Method Room Air 03/23/23 11:19 BMI result Body Mass Index 38.0 Appearance: Alert.? Oriented X3.?has abd pain.? cvs: rrr, [id number] , res: clear to auscultation ,no rhonchii or wheezing abd: no rebound or guarding ,left mid abd pain similar to yesterday, bs present. ext pulses present , no cyanosis . neuro: axo3 , nonfocal. Objective Data Active Medications Doxazosin Mesylate (Doxazosin Mesylate 2 Mg Tablet) 4 mg PO BEDTIME [facility] Last Admin: 03/22/23 19:35 Dose: 4 mg Documented By: ANDRAE Hydromorphone HCl (Hydromorphone Hcl 1 Mg/Ml Syringe) 1 mg IVPUSH Q3H PRN; Protocol PRN Reason: Pain, Mild (Pain Scale 1-3) Last Admin: 03/23/23 10:20 Dose: 1 mg Documented By: MAURA Lactated Ringer's (Lr) 1,000 mls @ 125 mls/hr IVCONT .Q8H [facility] Last Admin: 03/23/23 05:01 Dose: 125 mls/hr Documented By: PAU Ondansetron HCl (Ondansetron Hcl 4 Mg/2 Ml Vial) 4 mg IVPUSH Q4H PRN PRN Reason: nausea Last Admin: 03/22/23 14:58 Dose: 4 mg Documented By: DENILSON Pantoprazole Sodium (Pantoprazole Sodium 40 Mg/10 Ml Vial) 40 mg IVPUSH BID [facility] Last Admin: 03/23/23 07:48 Dose: 40 mg Documented By: MAURA Sodium Chloride (0.9 % Sodium Chloride Flush 3 Ml Syringe) 3 ml IVFLUSH QSHIFT [facility] Last Admin: 03/23/23 07:39 Dose: Not Given Documented By: MAURA Non-Admin Reason: IV Running Labs 03/22/23 06:18 03/23/23 05:52 Labs: Laboratory Results - last 24 hr 03/22/23 03/22/23 03/23/23 06:18 13:26 05:52 Anion Gap 9 L Estim Creat Clear Calc 136.7 Estimated GFR > 60 Random Glucose 96 Estimat Average Glucose 105 Hemoglobin A1c % 5.3 Calcium 8.5 D Total Bilirubin 0.7 AST 34 ALT 63 H Alkaline Phosphatase 45 Total Protein 5.4 L Albumin 3.4 L Triglycerides 227 Cholesterol 147 LDL Cholesterol, Calc 76 HDL Cholesterol 26 Lipase 206 H Hepatitis A IgM Ab Nonreactive Hep Bs Antigen Negative Hep Bs Antibody NONREACTIVE Hep B Core Total Ab Nonreactive Hepatitis C Ab (EIA) Nonreactive Assessment and Plan (1) Acute pancreatitis: Status: Acute (2) Morbid obesity due to excess calories: Status: Acute Plan 53-year-old male with history of morbid obesity, GERD, BPH had recent biopsy, erectile disorder:? Patient with acute pancreatitis. 1. Acute pancreatitis-?? Etiology unclear He said he quit alcohol few months back ALT AST elevated,lipase in 3000, mild fatty liver changes/splenomegaly on CT scan. LFTs, lipase level-improving hepatitis A,B,C screen-negative , lipid panel noted abd us:Enlarged echogenic liver suggestive of fatty infiltration. Normal caliber intrahepatic and extrahepatic bile ducts. No common bile duct stone seen. Probable gallbladder wall polyp measuring 9 x 6 x 8 mm. Six-month gallbladder ultrasound follow-up recommended. No gallstones. Bowel rest, IV fluid, pain management with IV morphine, antiemetics.will try clear lquid-full liquid if tolerates. 2. GERD: Switched to PPI. 3. The erectile disorder: Continue home medications. 4. BPH:? Elevated PSA, status post recent biopsy Continue terazosin, patient says that he follows up outpatient with Dr. Tripathi. 5. Mild hyperglycemia:?? Possible related to acute sickness/pancreatitis/IV fluids: hemoglobin A1c level 5.3 . DVT prophylaxis:? SubQ Lovenox inaptient need:Acute pancreatitis- need IV fluid, IV pain medications and BMP and liver function monitoring. Time Spent With Patient Time: Total time managing care of this patient today ____ minutes. Quality Stroke Does the patient have a stroke diagnosis?: No VTE Prior VTE?: No VTE Risk Level:: Medical - moderate - high VTE Device Contraindication: N/A - Device Ordered VTE Drug Contraindication: N/A - Med Ordered
[2023-03-23] MEDS: Doxazosin Mesylate 2 MG TABLET 4 MG PO (20:16)
[2023-03-23] MEDS: 0.9 % Sodium Chloride Flush 3 ML SYRINGE IVFLUSH (20:17)
[2023-03-24] VITALS: BP 121/56; PULSE 80; RESP 18; TEMP 36.7; O2SAT 94
[2023-03-24] MEDS: HYDROmorphone HCl 1 MG/ML SYRINGE IVPUSH ×2 (03:04→07:14)
[2023-03-24 03:07] VITALS: BP 136/67; PULSE 76; RESP 18; TEMP 36.3; O2SAT 95
[2023-03-24 07:04] VITALS: BP 124/58; PULSE 75; RESP 18; TEMP 36.1; O2SAT 95
[2023-03-24] MEDS: Pantoprazole Sodium 40 MG/10 ML VIAL IVPUSH (07:35)
[2023-03-24] MEDS: Lactated Ringers 1,000 ML 125 ML IVCONT (08:08)
[2023-03-24] MEDS: Pentoxifylline ER 400 MG TABLET.ER PO (09:23)
--- NOTE | 2023-03-24 10:40 | PM.DS ---
DS: Providers Provider Date of Service: 03/24/23 Date of admission: 03/22/23 11:57 Primary care physician: Aidee Walker MD Consults: 03/22/23 12:18 Consult to Gastroenterology Routine Consulting Provider: [facility] Reason for consultation: Acute pancreatitis, splenomegaly, increased LFTs, Has provider been notified: No DS: Diagnosis Discharge Diagnosis (1) Acute pancreatitis: Status: Acute (2) Morbid obesity due to excess calories: Status: Acute DS: Summary Hospital Course Hospital Course: 53-year-old male with history of morbid obesity, GERD, BPH had recent biopsy, erectile disorder:? Patient came to the hospital because patient having abdominal pain is is left upper? and mid abdomen , nausea vomiting of 1d ay? duration.? Patient says that he has on and off abdominal discomfort from 1months but it was not as bad as currently.? he said yesterday he ate buffalo chicken wing-started having severe abdominal pain nausea vomiting after that .? Denies any fever or chills. Is is abdominal pain is mostly left-sided radiating? that to the back, sharp, 9/10 intensity, got somewhat better with the pain medications. Denies any new complaint of chest pain or shortness of breath? or fever or chills or cough or? weakness or numbness. Lab imaging reviewed : cbc seems fine. bmp:bun/cr : 14/1.09 ast/alt: 135/[address] abd: ?Acute uncomplicated pancreatitis. ?Enlarged fatty liver with associated mild splenomegaly. Hospital course: Patient was admitted the hospital because of abdominal pain, nausea vomiting : Further workup lipase was elevated, CT abdomen showed acute pancreatitis(inflammation of pancreas) etiology so far not clear: Patient was started on bowel rest, hydration, IV pain medication-patient seems to be improved significantly with supportive care, will be going home if tolerates diet. Patient had elevated LFTs,also has mild splenomegaly(mild spleen enlargement) on ct abd : Hepatitis screen seems negative, imaging studies show fatty infiltration of liver-repeat LFTs seems to be improving: Monitor LFTs out patiently and further management outpatient. Patient has elevated triglyceride level, also total cholesterol but LDL cholesterol his fine-discussed with the GI: Currently advised to follow low fat diet, and strongly advised to lose weight and monitor lipid balance out patiently, and consider outpatient cholesterol medication if needed. Patient has background elevated PSA, also BPH history-had recent biopsy with Dr. Tripathi out patiently, currently on terazosin: Further management out patiently with Urology. Assessment and plan coordination time spent 50 minute, above management discussed with the patient in detail length-he understand and in agreement with above plan. Time Spent with Patient Time attestation: Total time managing care of this patient today ____ minutes. Discharge coordination time: Greater than 30 minutes Quality: Safe Use of Opioids Does Pt have an Active Cancer Diagnosis on the Problem List?: No Quality: Stroke Does the patient have a stroke diagnosis?: No Physical Exam Vital Signs: Vital Signs: Last Vital Signs Temp 97.0 F 03/24/23 07:04 Pulse 75 03/24/23 07:04 Resp 18 03/24/23 07:04 BP 124/58 L 03/24/23 07:04 Pulse Ox 95 03/24/23 07:04 O2 Del Method Room Air 03/24/23 07:04 BMI result Body Mass Index 38.0 Appearance: Alert.? Oriented X3.?abd pain improved significantly. cvs: rrr, [id number] . res: clear to auscultation ,no rhonchii or wheezing abd: no rebound or guarding ,nt , bs present. ext pulses present , no cyanosis . neuro: axo3 , nonfocal. DS: Data Imaging Chest x-ray: Radiologist's impression: ITS Impressions Abdomen/Pelvis CT 03/22/23 07:40 IMPRESSION: 1. Acute uncomplicated pancreatitis. 2. Enlarged fatty liver with associated mild splenomegaly. 3. Other incidental findings as described above. Fleischner guidelines were followed. Abdomen Ultrasound 03/22/23 15:00 IMPRESSION: Enlarged echogenic liver suggestive of fatty infiltration. Normal caliber intrahepatic and extrahepatic bile ducts. No common bile duct stone seen. Probable gallbladder wall polyp measuring 9 x 6 x 8 mm. Six-month gallbladder ultrasound follow-up recommended. No gallstones. Discharge Plan Discharge Anticipated Discharge Date/Time: 03/24/23 10:28 Patient Disposition: Home, Self-Care Discharge Diagnosis: acute pancreatitis Referrals: Aidee Walker MD [Primary Care Provider] - 1 Week Discharge Medications: New pentoxifylline 400 mg Tablet Extended Release 400 mg PO BID Qty: 14 0RF omeprazole 20 mg capsule,delayed release(DR/EC) 20 mg PO DAILY Qty: 30 0RF ondansetron 4 mg tablet,disintegrating 4 mg PO Q8H PRN (Reason: nausea and vomiting) Qty: 10 0RF hydromorphone [Dilaudid] 2 mg tablet 1 mg PO Q6H PRN (Reason: pain) Qty: 7 0RF Rx Instructions: Partial Fill upon patient request. docusate sodium [Colace] 100 mg capsule 100 mg PO DAILY PRN (Reason: constipation) Qty: 30 0RF Continued terazosin 5 mg capsule 5 mg PO BEDTIME Qty: 90 2RF Discharge Orders: Discharge Order (Routine); Ordered 03/24/23 Ordered By: Reji Salinas Diet: Low fat, low cholesterol Activity on Discharge: As tolerated Stand Alone Forms: Patient Portal Discharge page, Work/School Release Care Plan Goals: Patient was admitted the hospital because of abdominal pain, nausea vomiting : Further workup lipase was elevated, CT abdomen showed acute pancreatitis(inflammation of pancreas) etiology so far not clear: Patient was started on bowel rest, hydration, IV pain medication-patient seems to be improved significantly with supportive care, will be going home if tolerates diet. Patient had elevated LFTs,also has mild splenomegaly(mild spleen enlargement) on ct abd : Hepatitis screen seems negative, imaging studies show fatty infiltration of liver-repeat LFTs seems to be improving: Monitor LFTs out patiently and further management outpatient. Patient has elevated triglyceride level, also total cholesterol but LDL cholesterol his fine-discussed with the GI: Currently advised to follow low fat diet, and strongly advised to lose weight and monitor lipid balance out patiently, and consider outpatient cholesterol medication if needed. Patient has background elevated PSA, also BPH history-had recent biopsy with Dr. Tripathi out patiently, currently on terazosin: Further management out patiently with Urology. Health Concerns: as above. Plan of Treatment: as above. Assessment: as above. Patient Instructions: Pancreatitis (DC) Discharge Date/Time: 03/24/23 13:41
--- NOTE | 2023-03-24 11:06 | MHC.CM.PN ---
Patient is discharged today to home, self care. He has arranged for transportation home.
--- NOTE | 2023-03-24 12:18 | P.PNIM_ITS ---
Subjective Subjective Date of Service: 03/24/23 Interval History: acute pancreatitis Physical Exam Vital Signs: Vital Signs: Last Vital Signs Temp 97.0 F 03/24/23 07:04 Pulse 75 03/24/23 07:04 Resp 18 03/24/23 07:04 BP 124/58 L 03/24/23 07:04 Pulse Ox 95 03/24/23 07:04 O2 Del Method Room Air 03/24/23 07:04 BMI result Body Mass Index 38.0 Objective Data Active Medications Doxazosin Mesylate (Doxazosin Mesylate 2 Mg Tablet) 4 mg PO BEDTIME [facility] Last Admin: 03/23/23 20:16 Dose: 4 mg Documented By: MARCELINOORALZaria Hydromorphone HCl (Hydromorphone Hcl 2 Mg Tablet) 1 mg PO Q4H PRN PRN Reason: Pain, Mild (Pain Scale 1-3) Ondansetron HCl (Ondansetron Hcl 4 Mg/2 Ml Vial) 4 mg IVPUSH Q4H PRN PRN Reason: nausea Last Admin: 03/22/23 14:58 Dose: 4 mg Documented By: DENILSON Pantoprazole Sodium (Pantoprazole Sodium 40 Mg/10 Ml Vial) 40 mg IVPUSH BID [facility] Last Admin: 03/24/23 07:35 Dose: 40 mg Documented By: MAURA Pentoxifylline (Pentoxifylline Er 400 Mg Tablet.Er) 400 mg PO BID [facility] Last Admin: 03/24/23 09:23 Dose: 400 mg Documented By: MAURA Sodium Chloride (0.9 % Sodium Chloride Flush 3 Ml Syringe) 3 ml IVFLUSH QSHIFT [facility] Last Admin: 03/24/23 07:32 Dose: Not Given Documented By: MAURA Non-Admin Reason: IV Running Labs 03/22/23 06:18 03/23/23 05:52 Assessment and Plan Time Spent With Patient Time: Total time managing care of this patient today ____ minutes. Quality Stroke Does the patient have a stroke diagnosis?: No VTE Prior VTE?: No VTE Risk Level:: Medical - moderate - high VTE Device Contraindication: N/A - Device Ordered VTE Drug Contraindication: N/A - Med Ordered
[2023-03-28 15:27] LABS: Immunoglobulin G Subclass 1 189 mg/dL (382-929); Immunoglobulin G Subclass 2 273 mg/dL (241-700); Immunoglobulin G Subclass 3 18 mg/dL (22-178); Immunoglobulin G Subclass 4 38.6 mg/dL (4-86); Immunoglobulin G Total 500 mg/dL (600-1640)
== END 2023-03-24 13:41 | disposition home or self-care (01) | DRG 282 ==
LOC: HO.ED 07:57 → HO.EDOVER 12:02 → HO.S3 15:00
PROVIDERS: Admitting Provider Internal Medicine; Emergency Provider Internal Medicine; PCP Internal Medicine; Visit Provider Internal Medicine
DX: K85.80 Other acute pancreatitis without necrosis or infection (principal); K76.0 Fatty (change of) liver, not elsewhere classified; E66.01 Morbid (severe) obesity due to excess calories; R73.03 Prediabetes; N52.9 Male erectile dysfunction, unspecified; F17.210 Nicotine dependence, cigarettes, uncomplicated; Z71.6 Tobacco abuse counseling; K21.9 Gastro-esophageal reflux disease without esophagitis; N40.0 Benign prostatic hyperplasia without lower urinary tract symptoms; Z80.0 Family history of malignant neoplasm of digestive organs; Z68.38 Body mass index [BMI] 38.0-38.9, adult; Z79.899 Other long term (current) drug therapy
CPT/HCPCS: 36415; 74177; 76705; 80053; 80061; 82784; 83036; 83690; 85025; 86704; 86706; 86709; 86803; 87340; 99285; J1170; J2270; J2405; Q9967

== ENCOUNTER 2023-03-28 14:21 | Outpatient (AMB) | payer BC, SELFPAY ==
--- NOTE | 2023-03-28 14:29 | A.OFFVIS_ITS ---
Intake Intake Visit Reasons: 6M LABS(set) Intake Note: Patient presents today for a 6mo follow-up with Labs results * Urology Medication: Tadalafil, terazosin * Blood Thinner: None Analyst Geochemical Prospecting Required: No Accompanied by: Self / Same As Patient Allergies tamsulosin Adverse Reaction (Verified 06/06/23 11:23) Stomach Upset Environmental Allergy (Mild, Uncoded 06/06/23 11:23) allergy symptoms HPI HPI Comments History of Present Illness Details Fredo is a pleasant male. He is a patient of . He is seen for the following urologic conditions - lower urinary tract symptoms - hypogonadism - erectile dysfunction Continued good energy Discussed lab results with elevating PSA but in setting of prior negative biopsy Continue to follow Lower urinary tract symptoms Current visit is for - further evaluation of primarily obstructive symptoms. Current treatment includes - alpha-hanh - terazosin 5 mg Prior treatments include - none Prostate Symptom Score - 10/29 mild symptoms, bother 2 Symptoms include - 10/29 weak stream, symptoms improving Results from testing include - 03/30 Prostate Biopsy - inflammation Prior Prostate Score moderate PSA 12/25 3.0, 11/29 4.8, 01/28 5.1, 09/29 6.5, 02/28 7.3 Prostate volume < 30 gm, 30-50gm, 50+gm. Hypogonadism Continue clomiphene 50 mg every other day Testosterone is climbing 10/29 244, 01/27 380, 06/29 146, 01/28 283, 02/28 250 HBA1c 5.3 TG 227 Also noting response to daily tadalafil with sildenafil on demand He presents today for further evaluation of complaints regarding hypogonadism, Initial symptoms include erectile dysfunction Yes decreased libido Yes change in mood/depression Yes in muscle size/strength Yes increased fatigue/malaise Yes The onset of symptoms has been gradual Erectile status nocturnal erections do not, can have erection sufficient penetration but not maintain to orgasm. Associate conditions include chronic pain with opioid use No obstructive sleep apnea No CAD No diabetes No dyslipidemia No hypertension No obesity No stress - financial, family, employment No heavy alcohol or illicit drug use No He has been taking - JEREMY, tobacco Erectile dysfunction Daily tadalafil 10 mg On demand sildenafil 100mg variable effect May try 20mg tadalafil on demand PFSH Medical History COVID-19 vaccine series completed Difficulty urinating Erectile disorder, generalized, mild Lipid disorder Lung nodule < 6cm on CT Obesity Pre-diabetes Sleep apnea Tobacco abuse Surgical History History of adenoidectomy History of ankle surgery History of esophagogastroduodenoscopy (EGD) Hx of colonoscopy Family History Father Bipolar disorder Alzheimer's disease, early onset Mother Breast cancer Fibromyalgia Maternal Grandfather No problems noted. Maternal Grandmother Type 2 diabetes mellitus Paternal Grandfather Pancreatic cancer Paternal Grandmother Lung cancer Smoker Sister No problems noted. Sister No problems noted. Son No problems noted. Other Mental health disorder Substance abuse Social History Household Members: Spouse Household Members Other:: and son- Housing: House Are you a primary career coordinator to a significant other at home: No Do you presently have visiting nurse or other home services: No Alcohol intake: never Patient Tobacco Use Status: Current everyday Tobacco user Tobacco use type: Cigarette Cigarette Packs Per Day: 0.5 Cigarettes Per Day: 15 Second Hand Smoke Exposure: No service: No Current occupational status: employed and retired Current occupation: Retired - [employer] Cognitive needs: No Hearing needs: No Vision needs: No Review of Systems Const Denies chills and Denies fever(s) Card Reports no additional complaints and Denies syncope Resp Denies cough GI Denies abdominal pain and Denies heartburn Reports as per HPI and Denies change in libido Neuro Denies syncope Psych Denies change in libido Endo Denies change in libido Physical Exam Const General: cooperative, healthy appearing, comfortable and no acute distress Orientation/consciousness: patient oriented x3 HEENT Face and sinus: Yes normal facial exam Mouth: moist mucous membranes Neck Neck: Yes normal visual inspection, Yes full ROM and Yes trachea midline Chest Chest palpation & inspection: normal inspection of the chest Resp Effort & Inspection: normal respiratory effort, able to speak in complete sentences and no respiratory distress GI Inspection: Yes normal to inspection Back/Spine/Pelvis Cervical Spine: normal cervical lordosis Thoracic/Lumbar Spine: thoracic and lumbar spine normal to inspection Skin General skin exam: no rashes or lesions noted Neuro General: patient oriented x3, gait normal, tone normal and moves all extremities Extrem General: Yes normal to inspection and Yes capillary refill normal Assessment & Plan Assessment & Plan (1) Elevated PSA: Code(s): R97.20 - Elevated prostate specific antigen [PSA] (2) Erectile dysfunction: Code(s): N52.9 - Male erectile dysfunction, unspecified (3) BPH w urinary obs/LUTS: Code(s): N40.1 - Benign prostatic hyperplasia with lower urinary tract symptoms; N13.8 - Other obstructive and reflux uropathy Plan Six month follow-up lab work Orders: Orders Testosterone, Total 6 Months R79.89 - Other specified abnormal findings of blood chemistry Prostate Specific Antigen 6 Months R79.89 - Other specified abnormal findings of blood chemistry Patient Instructions: Imaging studies, laboratory and physical exam results were discussed and reviewed in detail. No major barriers to patient understanding were identified. An opportunity to ask questions regarding the treatment plan was provided. All questions were answered. The patient expressed understanding and agreement with the above treatment plan. The patient is aware they should contact our office by phone for worsening of th eir current condition or the appearance of new urologic symptoms. Compliance is encouraged with any medications and followup testing that is ordered. It is a privilege to participate in the urologic care of your patient. If you have any questions or concerns regarding treatment for the above conditions, or other urologic issues, please do not hesitate to contact me. The office telephone contact is [phone]. This note is constructed using voice recognition software. While every effort has been made to ensure accuracy wind turbine performance engineer errors may have been included. Yours sincerely, Dr Akhil Tripathi MD, [facility] - Urology Providers of Expert, Compassionate Care for the Genitourinary System Coding Level of Care Code Est Pt Level 4 (09449) Diagnoses Elevated PSA R97.20 Erectile dysfunction N52.9 BPH w urinary obs/LUTS N40.1; N13.8
== END 2023-03-28 15:25 | disposition home or self-care (01) ==
LOC: HO.HUSH 14:21
PROVIDERS: PCP Internal Medicine; Visit Provider Urology
DX: R97.20 Elevated prostate specific antigen [PSA] (principal); N52.9 Male erectile dysfunction, unspecified; N40.1 Benign prostatic hyperplasia with lower urinary tract symptoms; N13.8 Other obstructive and reflux uropathy
CPT/HCPCS: 99214

== ENCOUNTER → 2023-03-28 14:21 | Outpatient (BNVA) | payer BC, SELFPAY | PROVIDERS: PCP Internal Medicine; Visit Provider Urology ==

== ENCOUNTER 2023-03-29 06:03 | Outpatient (REF) | payer BC, SELFPAY ==
[2023-03-29 12:02] LABS: Alanine Aminotransferase 26 U/L (0-40); Albumin Level 3.9 g/dL (3.5-5.0); Alkaline Phosphatase 51 U/L (39-117); Anion Gap 13 (12-20); Aspartate Amino Transferase 18 U/L (5-37); Bilirubin Total 0.5 mg/dL (0.0-1.0); Blood Urea Nitrogen 15 mg/dL (9-16); Calcium 10.1 mg/dL (8.4-10.2); Carbon Dioxide 23 mmol/L (22-29); Chloride 109 mmol/L (96-108); Estimated Glomerular Filt Rate > 60; Glucose Random 104 mg/dL (60-115); Lipase 20 U/L (8-78); Potassium 4.3 mmol/L (3.3-5.1); Sodium 141 mmol/L (135-145); Total Protein 6.8 g/dL (6.5-8.0)
== END 2023-03-29 06:04 | disposition home or self-care (01) ==
LOC: HO.HMGCLDS 06:03
PROVIDERS: PCP Internal Medicine; Visit Provider Internal Medicine
DX: K85.90 Acute pancreatitis without necrosis or infection, unspecified (principal); R79.89 Other specified abnormal findings of blood chemistry
CPT/HCPCS: 36415; 80053; 83690

== ENCOUNTER 2023-05-26 09:43 | Outpatient (AMB) | payer BC, SELFPAY ==
[2023-05-26 10:06] VITALS: BP 120/78; PULSE 92; TEMP 36.4; O2SAT 98; BMI 39.2
--- NOTE | 2023-05-26 10:06 | MHC.OFFWIV ---
Intake Vital Signs 05/26/23 10:06 Height 6 ft Weight 289 lb 6 oz BMI 39.2 BP 120/78 Blood Pressure Location Lt brachial Position Sitting Pulse 92 Pulse Source Pulse Oximeter Temp 97.6 F Temp Source Temporal Artery Scan Pulse Oximetry (%) 98 Oxygen Delivery Method Room Air Intake Visit Reasons: EP ?Respiratory (masked) Intake Note: Pt is here c/o having a bad cough and chest congestion for the last two weeks. Pt states he also feels extremely tired. Pt states he has tested negative for COVID throughout the two weeks. Patient Tobacco Use Status: Current everyday Tobacco user Allergies tamsulosin Adverse Reaction (Verified 05/26/23 10:07) Stomach Upset Environmental Allergy (Mild, Uncoded 05/26/23 10:07) allergy symptoms Do you need a note to return to daycare/school/sports/work: Yes HPI HPI Comments History of Present Illness Details This is a 53-year-old male who presents to the office today for sick visit. Patient complaining of cough and chest congestion x2 weeks. Patient's symptoms improved but then worsened again. He reports coughing up yellow-green phlegm. No hemoptysis. No fevers or chills. Reports feeling fatigued and run down. No chest pain or shortness of breath. No abdominal pain or nausea/vomiting/diarrhea. No lightheadedness or dizziness. Patient reports positive sick contact with his and coworkers. [facility] Medical History COVID-19 vaccine series completed Difficulty urinating Erectile disorder, generalized, mild Lipid disorder Lung nodule < 6cm on CT Obesity Pre-diabetes Sleep apnea Tobacco abuse Surgical History History of adenoidectomy History of ankle surgery History of esophagogastroduodenoscopy (EGD) Hx of colonoscopy Family History Father Bipolar disorder Alzheimer's disease, early onset Mother Breast cancer Fibromyalgia Maternal Grandfather No problems noted. Maternal Grandmother Type 2 diabetes mellitus Paternal Grandfather Pancreatic cancer Paternal Grandmother Lung cancer Smoker Sister No problems noted. Sister No problems noted. Son No problems noted. Other Mental health disorder Substance abuse Social History Household Members: Spouse Household Members Other:: and son- Housing: House Are you a primary regular senior care provider to a significant other at home: No Do you presently have visiting nurse or other home services: No Alcohol intake: never Patient Tobacco Use Status: Current everyday Tobacco user Tobacco use type: Cigarette Cigarette Packs Per Day: 0.5 Cigarettes Per Day: 15 Second Hand Smoke Exposure: No service: No Current occupational status: employed and retired Current occupation: Retired - [employer] Cognitive needs: No Hearing needs: No Vision needs: No Review of Systems Const All systems reviewed & are unremarkable except as noted in HPI and below Reports no additional complaints Eyes Reports no additional complaints ENT Reports no additional complaints Card Reports no additional complaints Resp Reports as per HPI and Reports no additional complaints GI Reports no additional complaints Reports no additional complaints Musc Reports no additional complaints Skin/Breast Reports system reviewed and no additional complaints, except as documented Neuro Reports no additional complaints Psych Reports no additional complaints Endo Reports no additional complaints Jostin/Lymph Reports no additional complaints Aller/Immun Reports no additional complaints Physical Exam Vital Signs: Last Vital Signs Temp 97.6 F 05/26/23 10:06 Pulse 92 05/26/23 10:06 BP 120/78 05/26/23 10:06 Pulse Ox 98 05/26/23 10:06 Oxygen Delivery Method Room Air 05/26/23 10:06 BMI result Body Mass Index 39.2 Const General: cooperative, healthy appearing, no acute distress and well developed Orientation/consciousness: patient oriented x3 HEENT Head: Yes normal to inspection Ears: hearing grossly normal bilaterally General nose exam: Normal external nose present Face and sinus: Yes normal facial exam Mouth: Normal oral and palatal mucosa present Eyes General: appearance normal, both eyes and all related structures Pupils: Equal, round and reactive pupils present EOM: EOMs intact bilaterally Resp Effort & Inspection: normal respiratory effort and no respiratory distress Auscultation: clear to auscultation bilaterally Cardio Rate: regular rate Rhythm: regular rhythm Heart sounds: no gallops, no murmurs and no rubs Peripheral pulses: Peripheral pulses 2+ throughout GI Inspection: No distended Palpation (GI): Soft to palpation and nontender Auscultation: normal bowel sounds Skin General skin exam: no rashes or lesions noted Neuro General: patient oriented x3 Cranial nerves: Yes CN's II-XII intact bilaterally and Yes Equal, round and reactive pupils present Gait exam (Neuro): Normal gait present Motor exam (neuro): 5/5 motor strength present throughout Extrem General: Yes normal to inspection, Yes full ROM and Yes no clubbing, cyanosis or edema Psych Appearance: grossly normal Mental Status: mental status grossly normal Assessment & Plan Assessment & Plan (1) Acute cough: Code(s): R05.1 - Acute cough Plan: This is a 53-year-old male presents to the office with cough and chest congestion. History and physical most consistent with an acute bacterial bronchitis. Physical exam is benign without abnormal/adventitious breath sounds. His vital signs are stable. His chest x-ray ordered to evaluate for pneumonia. Patient sent home on a Z-Abundio as well as Tessalon Perles as needed. Patient advised to follow-up here go to the emergency room for worsening/persistent symptoms or if he were to develop fever/chills, hemoptysis, or shortness of breath. Patient verbalizes understanding and he is in agreement with the plan. Orders: Orders XR chest 2V Today R05.1 - Acute cough Medications: New azithromycin (Zithromax Z-Abundio) Take 2 tablets on day 1 followed by 1 tablet daily x4 days 250 mg PO DAILY 6 tabs 0RF 5 days benzonatate 100 mg PO TID PRN 10 caps 0RF cough Coding Level of Care Code Est Pt Level 3 (35063) Diagnoses Acute cough R05.1
== END 2023-05-26 10:34 | disposition home or self-care (01) ==
PROVIDERS: PCP Internal Medicine; Visit Provider Physician Assistant Medical
DX: R05.1 Acute cough (principal)
CPT/HCPCS: 99213

== ENCOUNTER 2023-05-26 10:33 | Outpatient (REF) | payer BC, SELFPAY ==
--- NOTE | ~2023-05-26 | XR_ITS ---
EXAMINATION: XR CHEST CLINICAL INFORMATION: Acute cough COMPARISON: 05/23/2017 TECHNIQUE: 2 views of the chest were obtained. FINDINGS: No significant abnormality is noted involving the heart, lungs, mediastinum, bony thorax or soft tissues. XR/XR chest 2V IMPRESSION: Unremarkable examination, without interval.
== END 2023-05-26 10:34 | disposition home or self-care (01) ==
LOC: HO.HMGCX 10:33
PROVIDERS: PCP Internal Medicine; Visit Provider Physician Assistant Medical
DX: R05.1 Acute cough (principal)
CPT/HCPCS: 71046

== ENCOUNTER 2023-06-06 11:13 | Outpatient (AMB) | payer BC, SELFPAY ==
--- NOTE | 2023-06-06 11:20 | AM.OFFWIN_ITS ---
Intake Vital Signs 06/06/23 11:21 Weight 129.274 kg BP 120/80 Blood Pressure Location Rt brachial Position Sitting Pulse 104 H Pulse Source Pulse Oximeter Temp 97.6 F Temp Source Temporal Artery Scan Pulse Oximetry (%) 97 Oxygen Delivery Method Room Air Intake Visit Reasons: EST/back again resp issues Intake Note: Patient here for chest pain, cough, feeling warn down, fatigued which has been present for about 1 month. he states he was sent home with a zpack the last time he was here and felt like it was better but then it came right back. Patient Tobacco Use Status: Current everyday Tobacco user Allergies tamsulosin Adverse Reaction (Verified 06/06/23 11:23) Stomach Upset Environmental Allergy (Mild, Uncoded 06/06/23 11:23) allergy symptoms Do you need a note to return to daycare/school/sports/work: Yes HPI HPI Comments History of Present Illness Details 1152 This is a 53-year-old male history of obesity presenting to the clinic for sick visit, patient complaining of fatigue, malaise, productive cough, chest congestion for over 3 weeks, patient was seen here recently prescribed a Z-Abundio and something for cough however medications have not helped much. Patient tested negative for COVID multiple times. Denies fevers, chills, chest pain nausea, vomiting, abdominal pain, headache, vision changes, dizziness and weakness Physical examination with faint bilateral wheezing on expiration.? Concerns for bacterial bronchitis not improving despite antibiotics. Unlikely pneumonia, PE, ACS. No signs of acute respiratory failure, or threat to airway. Plan at this time doxycycline to cover for her potential community-acquired pneumonia and bronchitis, will discharge with prednisone, albuterol inhaler. Ed ucated patient on diagnosis and treatment plan, answered all question, patient verbalizes understanding. At this time patient will be discharged home, advised to return with new or worsening symptoms. Educated on worrisome signs and symptoms and when to return. At this time I feel comfortable discharge home. [facility] Medical History COVID-19 vaccine series completed Difficulty urinating Erectile disorder, generalized, mild Lipid disorder Lung nodule < 6cm on CT Obesity Pre-diabetes Sleep apnea Tobacco abuse Surgical History History of adenoidectomy History of ankle surgery History of esophagogastroduodenoscopy (EGD) Hx of colonoscopy Family History Father Bipolar disorder Alzheimer's disease, early onset Mother Breast cancer Fibromyalgia Maternal Grandfather No problems noted. Maternal Grandmother Type 2 diabetes mellitus Paternal Grandfather Pancreatic cancer Paternal Grandmother Lung cancer Smoker Sister No problems noted. Sister No problems noted. Son No problems noted. Other Mental health disorder Substance abuse Social History Household Members: Spouse Household Members Other:: and son- Housing: House Are you a primary healthcare social worker to a significant other at home: No Do you presently have visiting nurse or other home services: No Alcohol intake: never Patient Tobacco Use Status: Current everyday Tobacco user Tobacco use type: Cigarette Cigarette Packs Per Day: 0.5 Cigarettes Per Day: 15 Second Hand Smoke Exposure: No service: No Current occupational status: employed and retired Current occupation: Retired - [employer] Cognitive needs: No Hearing needs: No Vision needs: No Review of Systems Const Details: Constitutional : No Weight loss, No Fever, No Chills, + Fatigue, + Malaise ENT/Mouth : No sore throat, No Rhinorrhea Eyes: No Eye Pain, No Swelling, No Redness Cardiovascular : No Chest Pain, No SOB, No Dyspnea on Exertion, No Orthopnea, No Edema, No Palpitations Respiratory : + Cough, + Sputum, No Wheezing Gastrointestinal : No Nausea, No Vomiting, No Diarrhea, No Constipation, No abdominal Pain, No Hematochezia, No Melena Genitourinary : No Dysuria, No Urinary Frequency, No Hematuria, Musculoskeletal : No joint pain, No Myalgias, No Joint Swelling Skin : No Skin Lesions, No rash Neuro : No Weakness, No Numbness, No Dizziness, No Headache Psych : No Anxiety/Panic, No Depression All other systems reviewed and are negative All systems reviewed & are unremarkable except as noted in HPI and below Physical Exam Vital Signs: Last Vital Signs Temp 97.6 F 06/06/23 11:21 Pulse 104 H 06/06/23 11:21 BP 120/80 06/06/23 11:21 Pulse Ox 97 06/06/23 11:21 Oxygen Delivery Method Room Air 06/06/23 11:21 Vital signs significant for slight tachycardia likely secondary to cough, viral illness. Appearance: Alert.? Oriented X3.? No acute distress.? Head: Normocephalic, atraumatic, no step-offs or deformities Eyes: Pupils equal, round and reactive to light.? Neck: Normal inspection.? Neck supple.? CVS: Normal heart rate and rhythm.? Pulses normal.? Respiratory: No respiratory distress.? Breath sounds with faint bilateral wheezing on expiration.? Abdomen: Soft and nontender.? Skin: Skin warm and dry.? Normal skin color.? Normal skin turgor.? Extremities: No lower extremity edema.? No calf ttp. 5/5 strength to bilateral upper and lower extremities Neuro: Oriented X 3.? No motor deficit.? No sensory deficit. CN 2-12 intact Assessment & Plan Assessment & Plan (1) Bronchitis: Code(s): J40 - Bronchitis, not specified as acute or chronic Plan Take your medications as prescribed. If you were prescribed antibiotics today, it is important that you take your medication to their entirety, do not skip any doses, do not finish them early. Follow-up with your primary care provider this week. Return to the emergency department with new or worsening symptoms. Such as fevers, chills, chest pain, shortness of breath, nausea, vomiting, dizziness, headache, vision changes, lethargy In case of emergency call 911 Medications: New prednisone 40 mg (2 x 20 mg) PO DAILY 10 tabs 0RF 5 days doxycycline hyclate 100 mg PO BID 14 caps 0RF 7 days albuterol sulfate 90 mcg/actuation 2 puffs inhalation Q6H PRN 6.7 grams 0RF shortness of breath or wheezing Coding Level of Care Code Est Pt Level 3 (00698) Diagnoses Bronchitis J40
[2023-06-06 11:21] VITALS: BP 120/80; PULSE 104; TEMP 36.4; O2SAT 97
== END 2023-06-06 12:34 | disposition home or self-care (01) ==
PROVIDERS: PCP Internal Medicine; Visit Provider Physician Assistant
DX: J40 Bronchitis, not specified as acute or chronic (principal)
CPT/HCPCS: 99213

== ENCOUNTER 2023-09-19 16:07 | Outpatient (REF) | payer BC, SELFPAY ==
[2023-09-19 17:51] LABS: Prostate Specific Antigen 7.07 ng/mL (<0.05-4.0)
[2023-09-23 15:14] LABS: Testosterone, Total 229 ng/dL (250-1100)
== END 2023-09-19 16:08 | disposition home or self-care (01) ==
LOC: HO.LAB 16:07
PROVIDERS: PCP Internal Medicine; Visit Provider Urology
DX: Z12.5 Encounter for screening for malignant neoplasm of prostate (principal); R79.89 Other specified abnormal findings of blood chemistry
CPT/HCPCS: 36415; 84153; 84403

== ENCOUNTER 2023-09-27 15:36 | Outpatient (AMB) | payer BC, SELFPAY ==
--- NOTE | 2023-09-27 15:37 | A.OFFVIS_ITS ---
Intake Intake Visit Reasons: 6 month labs Intake Note: Patient presents today for a 6mo follow-up with Labs results Urology Medication: Tadalafil & Terazosin Allergies to Antibiotic: No Known Allergies Blood Thinner: None Human Resources Officer Required: No Accompanied by: Self / Same As Patient Allergies tamsulosin Adverse Reaction (Verified 09/27/23 15:38) Stomach Upset Environmental Allergy (Mild, Uncoded 09/27/23 15:38) allergy symptoms Medication List - Last Reconciled 09/27/23 by Akhil Tripathi MD albuterol sulfate 90 mcg/actuation 2 puffs inhalation Q6H PRN azithromycin (Zithromax Z-Abundio) 250 mg PO DAILY 5 days benzonatate 100 mg PO TID PRN docusate sodium (Colace) 100 mg PO DAILY PRN doxycycline hyclate 100 mg PO BID 7 days hydromorphone (Dilaudid) 1 mg (1/2 x 2 mg) PO Q6H PRN omeprazole 20 mg PO DAILY ondansetron 4 mg PO Q8H PRN pentoxifylline ER 400 mg PO BID prednisone 40 mg (2 x 20 mg) PO DAILY 5 days sildenafil 100 mg PO ONCE PRN 30 days tadalafil 10 mg PO DAILY 90 days terazosin 5 mg PO BEDTIME HPI HPI Comments History of Present Illness Details Fredo is a pleasant male. He is a patient of Dr. Walker. He is seen for the following urologic conditions - lower urinary tract symptoms - hypogonadism - erectile dysfunction Telemedicine Evaluation 15 min Consultation [employer] attempted Had stopped Clomiphene No longer has tadalafil available Prescription filled full combination tadalafil and sildenafil Discussed testosterone therapy. Prescription of testosterone gel. Description of application process. Follow-up the efficacy review May benefit from evaluation for sleep apnea Prostate MRI for elevated PSA persistent - prior negative biopsy Lower urinary tract symptoms Current visit is for - further evaluation of primarily obstructive symptoms. Current treatment includes - alpha-hanh - terazosin 5 mg Prior treatments include - none Prostate Symptom Score - 10/29 mild symptoms, bother 2 Symptoms include - 10/29 weak stream, symptoms improving Results from testing include - 03/30 Prostate Biopsy - inflammation Prior Prostate Score moderate PSA 12/25 3.0, 11/29 4.8, 01/28 5.1, 09/29 6.5, 02/28 7.3, 09/30 7.1 Prostate volume < 30 gm, 30-50gm, 50+gm. Hypogonadism Continue clomiphene 50 mg every other day Testosterone is climbing 10/29 244, 01/27 380, 06/29 146, 01/28 283, 02/28 250 HBA1c 5.3 TG 227, 09/20 230 Also noting response to daily tadalafil with sildenafil on demand He presents today for further evaluation of complaints regarding hypogonadism, Initial symptoms include erectile dysfunction Yes decreased libido Yes change in mood/depression Yes in muscle size/strength Yes increased fatigue/malaise Yes - tired all the time The onset of symptoms has been gradual Erectile status nocturnal erections do not, can have erection sufficient penetration but not maintain to orgasm. Associate conditions include chronic pain with opioid use No obstructive sleep apnea No CAD No diabetes No dyslipidemia No hypertension No obesity No stress - financial, family, employment No heavy alcohol or illicit drug use No He has been taking - JEREMY, tobacco Erectile dysfunction Daily tadalafil 10 mg On demand sildenafil 100mg variable effect May try 20mg tadalafil on demand PFS Medical History COVID-19 vaccine series completed Difficulty urinating Erectile disorder, generalized, mild Lipid disorder Lung nodule < 6cm on CT Obesity Pre-diabetes Sleep apnea Tobacco abuse Surgical History History of adenoidectomy History of ankle surgery History of esophagogastroduodenoscopy (EGD) Hx of colonoscopy Family History Father Bipolar disorder Alzheimer's disease, early onset Mother Breast cancer Fibromyalgia Maternal Grandfather No problems noted. Maternal Grandmother Type 2 diabetes mellitus Paternal Grandfather Pancreatic cancer Paternal Grandmother Lung cancer Smoker Sister No problems noted. Sister No problems noted. Son No problems noted. Other Mental health disorder Substance abuse Social History Household Members: Spouse Household Members Other:: and son- Housing: House Are you a primary rn care transition to a significant other at home: No Do you presently have visiting nurse or other home services: No Alcohol intake: never Patient Tobacco Use Status: Current everyday Tobacco user Tobacco use type: Cigarette Cigarette Packs Per Day: 0.5 Cigarettes Per Day: 15 Second Hand Smoke Exposure: No service: No Current occupational status: employed and retired Current occupation: Retired - [employer] Cognitive needs: No Hearing needs: No Vision needs: No Review of Systems Const All systems reviewed & are unremarkable except as noted in HPI and below Reports no additional complaints Resp Reports no additional complaints GI Reports no additional complaints Reports as per HPI Musc Reports no additional complaints Physical Exam Telemedicine evaluation Appropriate responses Regular breathing rate and rhythm HEENT Head: Yes normal to inspection Ears: hearing grossly normal bilaterally Eyes General: appearance normal, both eyes and all related structures Neck Neck: Yes normal visual inspection Chest Chest palpation & inspection: normal inspection of the chest Resp Effort & Inspection: normal respiratory effort and able to speak in complete sentences Assessment & Plan Assessment & Plan (1) Elevated PSA: Code(s): R97.20 - Elevated prostate specific antigen [PSA] (2) Erectile dysfunction: Code(s): N52.9 - Male erectile dysfunction, unspecified (3) Low libido: Code(s): R68.82 - Decreased libido (4) Low testosterone: Code(s): R79.89 - Other specified abnormal findings of blood chemistry Plan Two month follow-up testosterone levels MRI prostate Orders: Orders Testosterone, Free/Total 6 Weeks R79.89 - Other specified abnormal findings of blood chemistry MR pelvis wo/w con Today R97.20 - Elevated prostate specific antigen [PSA] Medications: New 2 tadalafil 10 mg PO DAILY 90 days 90 tabs 1RF sexual activity N52.01 - Erectile dysfunction due to arterial insufficiency sildenafil administer 60 minutes before intended activity 100 mg PO ONCE 30 days PRN 30 tabs 1RF sexual activity N52.9 - Male erectile dysfunction, unspecified testosterone apply 1 pump amount over max area of EACH upper arm and shoulder 2 pumps topical DAILY 28 days 75 grams 1RF R79.89 - Other specified abnormal findings of blood chemistry Patient Instructions: Imaging studies, laboratory and physical exam results were discussed and reviewed in detail. No major barriers to patient understanding were identified. An opportunity to ask questions regarding the treatment plan was provided. All questions were answered. The patient expressed understanding and agreement with the above treatment plan. The patient is aware they should contact our office by phone for worsening of their current condition or the appearance of new urologic symptoms. Compliance is encouraged with any medications and followup testing that is ordered. It is a privilege to participate in the urologic care of your patient. If you have any questions or concerns regarding treatment for the above conditions, or other urologic issues, please do not hesitate to contact me. The office telephone contact is [phone]. This note is constructed using voice recognition software. While every effort has been made to ensure accuracy celery wrapper errors may have been included. Yours sincerely, Dr Akhil Tripathi MD, [facility] - Urology Providers of Expert, Compassionate Care for the Genitourinary System Telehealth Telehealth Location of provider rendering services: practice address Location of patient: address on file Patient Identification confirmed using: Name, : Yes Telehealth method: video Patient verbally consented to treatment: Yes Patient verbally consented to billing insurance company: Yes Patient informed of any privacy concerns related to visit: Yes Coding Level of Care Code Tele Est Pt Level 4 (04734) Diagnoses Elevated PSA R97.20 Erectile dysfunction N52.9 Low libido R68.82 Low testosterone R79.89
== END 2023-09-27 16:22 | disposition home or self-care (01) ==
LOC: HO.HUSH 15:36
PROVIDERS: PCP Internal Medicine; Visit Provider Urology
DX: R97.20 Elevated prostate specific antigen [PSA] (principal); N52.9 Male erectile dysfunction, unspecified; R68.82 Decreased libido; R79.89 Other specified abnormal findings of blood chemistry
CPT/HCPCS: 99214

== ENCOUNTER → 2023-09-27 15:36 | Outpatient (BNVA) | payer BC, SELFPAY | PROVIDERS: PCP Internal Medicine; Visit Provider Urology ==

== ENCOUNTER 2023-11-25 07:44 | Outpatient (REF) | payer BC, SELFPAY ==
[2023-12-01 18:43] LABS: Testosterone, Free 80.3 pg/mL (35.0-155.0); Testosterone, Total 336 ng/dL (250-1100)
== END 2023-11-25 07:45 | disposition home or self-care (01) ==
LOC: HO.LAB 07:44
PROVIDERS: PCP Internal Medicine; Visit Provider Urology
DX: R79.89 Other specified abnormal findings of blood chemistry (principal)
CPT/HCPCS: 36415; 84402; 84403

== ENCOUNTER 2023-12-05 14:51 | Outpatient (AMB) | payer BC, SELFPAY ==
--- NOTE | 2023-12-05 15:42 | A.OFFVIS_ITS ---
Intake Intake Visit Reasons: 2M /TEST/MRI(set)Confirmed Intake Note: Patient is Present for Follow Up LAB/MRI Urology Medication: Sildenafil, Tadalafil, Terazosin, Testosterone Antibiotic Allergies: None Blood Thinners: None Allergies tamsulosin Adverse Reaction (Verified 12/05/23 15:46) Stomach Upset Environmental Allergy (Mild, Uncoded 12/05/23 15:46) allergy symptoms HPI HPI Comments History of Present Illness Details Fredo is a pleasant male. He is a patient of Dr. Walker. He is see n for the following urologic conditions - lower urinary tract symptoms - hypogonadism - erectile dysfunction Good testosterone Prescription filled for combination tadalafil and sildenafil Known high PSA Prostate biopsy March 2022 Discussed testosterone therapy. Prescription of testosterone gel. Description of application process. Follow-up the efficacy review May benefit from evaluation for sleep apnea Prostate MRI for elevated PSA persistent - prior negative biopsy Lower urinary tract symptoms Current visit is for - further evaluation of primarily obstructive symptoms. Current treatment includes - alpha-hanh - terazosin 5 mg Prior treatments include - none Prostate Symptom Score - 10/29 mild symptoms, bother 2 Symptoms include - 10/29 weak stream, symptoms improving Results from testing include - 03/30 Prostate Biopsy - inflammation Prior Prostate Score moderate PSA 12/25 3.0, 11/29 4.8, 01/28 5.1, 09/29 6.5, 02/28 7.3, 09/30 7.1 Prostate volume < 30 gm, 30-50gm, 50+gm. Hypogonadism Continue clomiphene 50 mg every other day Testosterone is climbing 10/29 244, 01/27 380, 06/29 146, 01/28 283, 02/28 250 HBA1c 5.3 TG 227, 09/20 230, 12/02 T 330 Also noting response to daily tadalafil with sildenafil on demand He presents today for further evaluation of complaints regarding hypogonadism, Initial symptoms include erectile dysfunction Yes decreased libido Yes change in mood/depression Yes in muscle size/strength Yes increased fatigue/malaise Yes - tired all the time The onset of symptoms has been gradual Erectile status nocturnal erections do not, can have erection sufficient penetration but not maintain to orgasm. Associate conditions include chronic pain with opioid use No obstructive sleep apnea No CAD No diabetes No dyslipidemia No hypertension No obesity No stress - financial, family, employment No heavy alcohol or illicit drug use No He has been taking - JEREMY, tobacco Erectile dysfunction Daily tadalafil 10 mg On demand sildenafil 100mg variable effect May try 20mg tadalafil on demand PFSH Medical History Sleep apnea COVID-19 vaccine series completed Difficulty urinating Obesity Lung nodule < 6cm on CT Erectile disorder, generalized, mild Lipid disorder Pre-diabetes Tobacco abuse Surgical History Hx of colonoscopy History of esophagogastroduodenoscopy (EGD) History of ankle surgery History of adenoidectomy Family History Father Bipolar disorder Alzheimer's disease, early onset Mother Breast cancer Fibromyalgia Maternal Grandfather No problems noted. Maternal Grandmother Type 2 diabetes mellitus Paternal Grandfather Pancreatic cancer Paternal Grandmother Lung cancer Smoker Sister No problems noted. Sister No problems noted. Son No problems noted. Other Mental health disorder Substance abuse Social History Household Members: Spouse Household Members Other:: and son- Housing: House Are you a primary care trainer to a significant other at home: No Do you presently have visiting nurse or other home services: No Alcohol intake: never Patient Tobacco Use Status: Current everyday Tobacco user Tobacco use type: Cigarette Cigarette Packs Per Day: 0.5 Cigarettes Per Day: 15 Second Hand Smoke Exposure: No service: No Current occupational status: employed and retired Current occupation: Retired - [employer] Cognitive needs: No Hearing needs: No Vision needs: No Review of Systems Const Denies chills and Denies fever(s) Card Reports no additional complaints and Denies syncope Resp Denies cough GI Denies abdominal pain and Denies heartburn Reports as per HPI and Denies change in libido Neuro Denies syncope Psych Denies change in libido Endo Denies change in libido Physical Exam Const General: cooperative, healthy appearing, comfortable and no acute distress Orientation/consciousness: patient oriented x3 HEENT Face and sinus: Yes normal facial exam Mouth: moist mucous membranes Neck Neck: Yes normal visual inspection, Yes full ROM and Yes trachea midline Chest Chest palpation & inspection: normal inspection of the chest Resp Effort & Inspection: normal respiratory effort, able to speak in complete sentences and no respiratory distress GI Inspection: Yes normal to inspection Back/Spine/Pelvis Cervical Spine: normal cervical lordosis Thoracic/Lumbar Spine: thoracic and lumbar spine normal to inspection Skin General skin exam: no rashes or lesions noted Neuro General: patient oriented x3, gait normal, tone normal and moves all extremities Extrem General: Yes normal to inspection and Yes capillary refill normal Assessment & Plan Assessment & Plan (1) Elevated PSA: Code(s): R97.20 - Elevated prostate specific antigen [PSA] (2) Erectile dysfunction: Code(s): N52.9 - Male erectile dysfunction, unspecified (3) BPH w urinary obs/LUTS: Code(s): N40.1 - Benign prostatic hyperplasia with lower urinary tract symptoms; N13.8 - Other obstructive and reflux uropathy Plan Six month follow-up Orders: Orders Prostate Specific Antigen 6 Months R79.89 - Other specified abnormal findings of blood chemistry Complete Blood Count no Diff 6 Months R79.89 - Other specified abnormal findings of blood chemistry Testosterone, Total 6 Months R79.89 - Other specified abnormal findings of blood chemistry Patient Instructions: Imaging studies, laboratory and physical exam results were discussed and reviewed in detail. No major barriers to patient understanding were identified. An opportunity to ask questions regarding the treatment plan was provided. All questions were answered. The patient expressed understanding and agreement with the above treatment plan. The patient is aware they should contact our office by phone for worsening of their current condition or the appearance of new urologic symptoms. Compliance is encouraged with any medications and followup testing that is ordered. It is a privilege to participate in the urologic care of your patient. If you have any questions or concerns regarding treatment for the above conditions, or other urologic issues, please do not hesitate to contact me. The office telephone contact is [phone]. This note is constructed using voice recognition software. While every effort has been made to ensure accuracy sports broadcasting internship errors may have been included. Yours sincerely, Dr Akhil Tripathi MD, [facility] - Urology Providers of Expert, Compassionate Care for the Genitourinary System Coding Level of Care Code Est Pt Level 3 (95936) Diagnoses Elevated PSA R97.20 Erectile dysfunction N52.9 BPH w urinary obs/LUTS N40.1; N13.8
== END 2023-12-05 16:23 | disposition home or self-care (01) ==
PROVIDERS: PCP Internal Medicine; Visit Provider Urology
DX: R97.20 Elevated prostate specific antigen [PSA] (principal); N52.9 Male erectile dysfunction, unspecified; N40.1 Benign prostatic hyperplasia with lower urinary tract symptoms; N13.8 Other obstructive and reflux uropathy
CPT/HCPCS: 99213

== ENCOUNTER → 2023-12-05 14:51 | Outpatient (BNVA) | payer BC, SELFPAY | PROVIDERS: PCP Internal Medicine; Visit Provider Urology ==

== ENCOUNTER 2024-01-01 12:01 | Outpatient (REF) | payer BC, SELFPAY ==
[2024-01-01 13:02] LABS: MANUAL DIFF FLAG NO
[2024-01-01 14:45] LABS: Basophils Percent Auto 0.5 % (0-2); Eosinophils Absolute Auto 0.1 X10*3/uL (0.0-0.4); Eosinophils Percent Auto 1.1 % (0-4); Hematocrit 46.9 % (42.0-52.0); Hemoglobin 15.7 g/dl (14.0-18.0); Imm Gran Abs Auto 0.02 X10*3/uL (0.00-0.03); Imm Gran Pct Auto 0.3 % (0.0-0.4); Lymphocytes Absolute Auto 1.9 X10*3/uL (1.2-4.9); Lymphocytes Percent Auto 24.4 % (20-40); Mean Corpuscular HGB Conc 33.5 g/dl (31.0-36.0); Mean Corpuscular Hemoglobin 30.1 pg (27.0-33.0); Mean Platelet Volume 9.7 fL (9.4-12.4); Monocytes Absolute Auto 0.3 X10*3/uL (0.1-1.2); Monocytes Percent Auto 4.3 % (2-11); Neutrophils Absolute Auto 5.5 x10*3/uL (2.0-8.3); Neutrophils Percent Auto 69.4 % (45-73); Platelet Count 189 X10*3/uL (160-400); Red Blood Count 5.21 X10*6/uL (4.60-5.80); Red Cell Distribution Width 12.1 % (11.0-16.0); White Blood Count 7.9 X10*3/uL (4.8-10.8)
[2024-01-01 15:29] LABS: Alanine Aminotransferase 24 U/L (0-40); Albumin Level 4.4 g/dL (3.5-5.0); Alkaline Phosphatase 55 U/L (39-117); Anion Gap 11 (12-20); Aspartate Amino Transferase 17 U/L (5-37); Bilirubin Total 0.3 mg/dL (0.0-1.0); Blood Urea Nitrogen 12 mg/dL (9-16); C Reactive Protein 0.16 mg/dL (< or = 0.50); Calcium 9.4 mg/dL (8.4-10.2); Carbon Dioxide 27 mmol/L (22-29); Chloride 107 mmol/L (96-108); Estimated Glomerular Filt Rate > 60; Glucose Random 89 mg/dL (60-115); Potassium 4.3 mmol/L (3.3-5.1); Sodium 141 mmol/L (135-145); Total Protein 6.9 g/dL (6.5-8.0)
[2024-01-01 15:35] LABS: Ferritin 87 ng/mL (20-250)
[2024-01-01 15:38] LABS: Folate 10.3 ng/mL (> or = 4.0); Vitamin B12 432 pg/mL (200-900)
== END 2024-01-01 12:02 | disposition home or self-care (01) ==
LOC: HO.LAB 12:01
PROVIDERS: PCP Internal Medicine; Visit Provider Internal Medicine Gastroenterology
DX: K75.81 Nonalcoholic steatohepatitis (NASH) (principal); R16.2 Hepatomegaly with splenomegaly, not elsewhere classified; K85.90 Acute pancreatitis without necrosis or infection, unspecified; R79.89 Other specified abnormal findings of blood chemistry
CPT/HCPCS: 36415; 80053; 82607; 82728; 82746; 85025; 86140

== ENCOUNTER 2024-01-01 12:01 | Outpatient (AMB) | payer BC, SELFPAY ==
[2024-01-01 12:12] VITALS: BP 161/94; PULSE 68
--- NOTE | 2024-01-01 12:12 | MHC.OFFVIS ---
Intake Vital Signs 01/01/24 12:12 Height 6 ft BMI Reason not done Patient refused/unable BP 161/94 H Blood Pressure Location Lt brachial Position Sitting Pulse 68 Intake Visit Reasons: abdominal pains per barajas Intake Note: Fredo presents in office today for abdominal pain. CC: Patient reports on and off abdominal pain for the last 6 months. Patient reports lower abdominal pain and incomplete bowel movements. Stools are thinner than normal or diarrhea per PT. Ethics Instructor Required: No Accompanied by: Self / Same As Patient Allergies tamsulosin Adverse Reaction (Verified 01/01/24 12:16) Stomach Upset Environmental Allergy (Mild, Uncoded 12/05/23 15:46) allergy symptoms HPI abdominal pains per barajas HPI Details 53-year-old male with history of morbid obesity, GERD, BPH and fatty liver being seen for f/u for pancreatitis. RECAP: I saw the patient in house 03/2023 Patient had 1 d of worsening severe 9/10, sharp epigastric pain radiating into the back with nausea and non bloody emesis. sx seem to have came after eating buffalo chicken wing. No exacerbating factors but better with pain medications. He did admit to getting similar pains on and off maybe once a month, usu worse with milk and dairy. These attacks are usu mild and never require admission, going on fro few years now. He denies alcohol use but is a smoker 3/4 pack per day, no new drugs and no herbal meds. Grandfather had pancreas cancer. Labs 03/2023 cbc normal bmp:bun/cr : 14/1.09 ast/alt: 135/101 Lipase >3000 IMAGING: CT 03/2023 ?Acute uncomplicated pancreatitis. ?Enlarged fatty liver with associated mild splenomegaly. US also from same time revealed GB polyp 9 mm EGD/ Colonoscopy:2020 Polyp--SSA gastritis, LA grade A esophagitis INTERIM: no further abdominal pain like he had 03/2023 he notes abn bowle habit he has pain and incomplete evacuation, pain is better when passes stool and gas no alcohol smoker 1 ppd on average notes black stools , othertimes normal for last several months does admit to taking peptobismol as well was popping on and off for stomach aches denies taking nsaids or aspirin EXAM: GENERAL: The patient is well developed and nontoxic, obese VITAL SIGNS:see workflow HEENT: Nonicteric sclerae, PERRLA, EOMI. Oropharynx clear. Moist mucous membranes. Conjunctivae appear well perfused. No thyroid mass. CHEST: Chest wall is nontender. HEART: Regular rate and rhythm without murmurs. LUNGS: Clear to auscultation bilaterally. ABDOMEN: Soft, positive bowel sounds, nontender, no organomegaly.no flank tenderness SKIN: No rash, no excessive bruising, petechiae, or purpura. NEUROLOGIC: Cranial nerves II-XII intact without motor/sensory deficit. Psych: normal affect A/P: 1/ Abn bowel habits and tenesmus, abdominal pain 2/ hx of pancreatitis, GB polyp PLAN: 1/ EGD, colo for further assessment hawa given hx of esophagitis, polyp 2/ repeat US due to suspected GB polyp, also r/o stones 3/ recheck labs incl HGB PFSH Medical History Sleep apnea COVID-19 vaccine series completed Difficulty urinating Obesity Lung nodule < 6cm on CT Erectile disorder, generalized, mild Lipid disorder Pre-diabetes Tobacco abuse Surgical History Hx of colonoscopy History of esophagogastroduodenoscopy (EGD) History of ankle surgery History of adenoidectomy Family History Father Bipolar disorder Alzheimer's disease, early onset Mother Breast cancer Fibromyalgia Maternal Grandfather No problems noted. Maternal Grandmother Type 2 diabetes mellitus Paternal Grandfather Pancreatic cancer Paternal Grandmother Lung cancer Smoker Sister No problems noted. Sister No problems noted. Son No problems noted. Other Mental health disorder Substance abuse Social History Household Members: Spouse Household Members Other:: and son- Housing: House Are you a primary progressive care unit registered nurse to a significant other at home: No Do you presently have visiting nurse or other home services: No Alcohol intake: never Patient Tobacco Use Status: Current everyday Tobacco user Tobacco use type: Cigarette Cigarette Packs Per Day: 0.5 Cigarettes Per Day: 15 Second Hand Smoke Exposure: No service: No Current occupational status: employed and retired Current occupation: Retired - [employer] Cognitive needs: No Hearing needs: No Vision needs: No Physical Exam Vital Signs: Last Vital Signs Pulse 68 01/01/24 12:12 BP 161/94 H 01/01/24 12:12 Assessment & Plan Assessment & Plan (1) Hepatomegaly with splenomegaly, not elsewhere classified: Code(s): R16.2 - Hepatomegaly with splenomegaly, not elsewhere classified Plan: A/P: 1/ Abn bowel habits and tenesmus, abdominal pain 2/ hx of pancreatitis, GB polyp PLAN: 1/ EGD, colo for further assessment hawa given hx of esophagitis, polyp 2/ repeat US due to suspected GB polyp, also r/o stones 3/ recheck labs incl HGB (2) LFT elevation: Code(s): R79.89 - Other specified abnormal findings of blood chemistry Plan: A/P: 1/ Abn bowel habits and tenesmus, abdominal pain 2/ hx of pancreatitis, GB polyp PLAN: 1/ EGD, colo for further assessment hawa given hx of esophagitis, polyp 2/ repeat US due to suspected GB polyp, also r/o stones 3/ recheck labs incl HGB (3) Acute pancreatitis: Code(s): K85.90 - Acute pancreatitis without necrosis or infection, unspecified Plan: A/P: 1/ Abn bowel habits and tenesmus, abdominal pain 2/ hx of pancreatitis, GB polyp PLAN: 1/ EGD, colo for further assessment hawa given hx of esophagitis, polyp 2/ repeat US due to suspected GB polyp, also r/o stones 3/ recheck labs incl HGB Orders: Orders Complete Blood Count Auto Diff Today K85.90 - Acute pancreatitis without necrosis or infection, unspecified, R16.2 - Hepatomegaly with splenomegaly, not elsewhere classified, R79.89 - Other specified abnormal findings of blood chemistry Comprehensive Met. Panel Today K75.81 - Nonalcoholic steatohepatitis (WILHELM), K85.90 - Acute pancreatitis without necrosis or infection, unspecified, R16.2 - Hepatomegaly with splenomegaly, not elsewhere classified, R79.89 - Other specified abnormal findings of blood chemistry Ferritin Today K85.90 - Acute pancreatitis without necrosis or infection, unspecified, R16.2 - Hepatomegaly with splenomegaly, not elsewhere classified, R79.89 - Other specified abnormal findings of blood chemistry US abdomen comp w elastography Today K85.90 - Acute pancreatitis without necrosis or infection, unspecified, R16.2 - Hepatomegaly with splenomegaly, not elsewhere classified, R79.89 - Other specified abnormal findings of blood chemistry C Reactive Protein Today K85. - Acute pancreatitis without necrosis or infection, unspecified, R16.2 - Hepatomegaly with splenomegaly, not elsewhere classified, R79.89 - Other specified abnormal findings of blood chemistry Vitamin B12 and Folate Today K. - Acute pancreatitis without necrosis or infection, unspecified, R16.2 - Hepatomegaly with splenomegaly, not elsewhere classified, R79.89 - Other specified abnormal findings of blood chemistry Medications: New sodium,potassium,mag sulfates 17.5-3.13-1.6 gram (Suprep Bowel Prep Kit) DILUTE; drink 1/2 at 6-8 pm and half at 11 PM- 1AM 354 mL 0RF Refilled omeprazole 20 mg PO DAILY 30 caps 6RF Coding Level of Care Code Est Pt Level 4 (46110) Diagnoses Hepatomegaly with splenomegaly, not elsewhere classified R16.2 LFT elevation R7 Acute pancreatitis K
== END 2024-01-01 12:49 | disposition home or self-care (01) ==
PROVIDERS: PCP Internal Medicine; Visit Provider Internal Medicine Gastroenterology
DX: R16.2 Hepatomegaly with splenomegaly, not elsewhere classified (principal); R79.89 Other specified abnormal findings of blood chemistry; K85.90 Acute pancreatitis without necrosis or infection, unspecified
CPT/HCPCS: 99214

== ENCOUNTER 2024-01-22 07:55 | Outpatient (REF) | payer BC, SELFPAY ==
--- NOTE | ~2024-01-22 | US_ITS ---
EXAMINATION: US COMPLETE ABDOMEN WITH LIVER ELASTOGRAPHY CLINICAL INFORMATION: History of hepatomegaly, splenomegaly, gallbladder polyp and pancreatitis. COMPARISON: Abdominal ultrasound dated 03/22/2023; CT abdomen and pelvis dated 03/22/2023. TECHNIQUE: Real-time imaging of the abdominal viscera. Noninvasive ultrasound liver fibrosis assessment is performed using [employer] point quantification shear wave elastography (2D-SWE) with a C5-2 MHz transducer. Multiple elastography samples are obtained. FINDINGS: PANCREAS: Normal. The visualized pancreatic head and body are normal in appearance. The remainder of the pancreas is obscured from visualization by the overlying bowel gas. ABDOMINAL AORTA: The proximal, middle, and distal aortic segments are normal in caliber. INFERIOR VENA CAVA: Visualized portions are normal. LIVER: The liver demonstrates normal size, contour and increased echogenicity. No focal lesion or intrahepatic biliary duct dilatation. The right lobe measures 18.6 cm in length. The left lobe measures 13.0 cm in length. Portal flow is towards the liver (hepatopetal). Shear wave liver elastography median stiffness is 1.15 m/s (reference: normal median stiffness is 1.3 m/s or less). IQR/median stiffness to assess sampling precision is 0.12 (reference: good quality data set is IQR/median stiffness of 0.15 or less). GALLBLADDER: An 8 mm nonmobile polyp is seen, which is stable from a prior maximal diameter of 9 mm on the ultrasound examination of 03/22/2023. The gallbladder is physiologically distended without evidence of stones, sludge, polyps, wall thickening or pericholecystic fluid. COMMON BILE DUCT: Normal in caliber measuring 0.6 cm in diameter. RIGHT KIDNEY: Normal. No hydronephrosis. No renal calculi or focal parenchymal lesions. The kidney measures 10.9 cm in maximum dimension. LEFT KIDNEY: Normal. No hydronephrosis. No renal calculi or focal parenchymal lesions. The kidney measures 11.9 cm in maximum dimension. SPLEEN: Normal. The spleen measures 10.8 cm in maximum dimension. FREE FLUID: None. US/US abdomen comp w elastography IMPRESSION: 1. There is generalized increase in hepatic echotexture, consistent with fatty infiltration or hepatocellular disease. Please correlate clinically. No focal hepatic mass or intrahepatic biliary dilatation is seen. 2. There is mild hepatomegaly. 3. Liver elastography: In the absence of other known clinical signs, measurements rule out compensated advanced chronic liver disease. If there are known clinical signs, further testing may be needed for confirmation. 4. A stable 8 mm gallbladder polyp is redemonstrated, unchanged from 03/22/2023. REFERENCE: Society of Radiologists in Ultrasound Liver Stiffness Thresholds (2020): LIVER STIFFNESS THRESHOLDS: *Liver Stiffness equal or less than 1.3 m/s: High probability of being normal. *Liver Stiffness less than 1.7 m/s: In the absence of other known clinical signs, rules out compensated advanced chronic liver disease. *Liver Stiffness 1.7-2.1 m/s: Suggestive of compensated advanced chronic liver disease but need further test for confirmation. *Liver Stiffness over 2.1 m/s: Rules in compensated advanced chronic liver disease. *Liver Stiffness over 2.4 m/s: Suggestive of clinically significant portal hypertension. QUALITY OF DATA SET: *IQR/Median value equal or less than 0.15 implies a quality data set. *IQR/Median value over 0.15 implies a poor quality data set. SIGNIFICANT CHANGE FROM PRIOR EXAM: Significant change if liver stiffness measurement is 10% or greater from prior exam. OTHER CONSIDERATIONS: The stage of liver fibrosis may be overestimated in the setting of acute hepatitis, liver inflammation, elevated liver function tests, hepatic vascular congestion, obstructive cholestasis, non-fasting state, and infiltrative diseases such as amyloidosis and lymphoma. In some patients with NAFLD, the liver stiffness thresholds for compensated advanced chronic liver disease may be lower. In causes other than viral hepatitis and NAFLD, liver stiffness thresholds are not well established.
== END 2024-01-22 07:56 | disposition home or self-care (01) ==
LOC: HO.US 07:55
PROVIDERS: PCP Internal Medicine; Visit Provider Internal Medicine Gastroenterology
DX: R16.2 Hepatomegaly with splenomegaly, not elsewhere classified (principal); R79.89 Other specified abnormal findings of blood chemistry; K85.90 Acute pancreatitis without necrosis or infection, unspecified
CPT/HCPCS: 76700; 76981

== ENCOUNTER 2024-02-27 14:34 | Outpatient (AMB) | payer BC, SELFPAY ==
[2024-02-27 14:41] VITALS: BP 146/78; PULSE 85; O2SAT 96; BMI 36.4
--- NOTE | 2024-02-27 14:41 | A.OFFPC_ITS ---
Vital Signs 02/27/24 14:41 Height 6 ft Weight 268 lb 8 oz BMI 36.4 BP 146/78 H Blood Pressure Location Rt brachial Position Sitting Pulse 85 Pulse Source Pulse Oximeter Pulse Oximetry (%) 96 Oxygen Delivery Method Room Air Intake Visit Reasons: Annual PE Allergies tamsulosin Adverse Reaction (Verified 01/01/24 12:16) Stomach Upset Environmental Allergy (Mild, Uncoded 12/05/23 15:46) allergy symptoms Medication List - Last Reconciled 02/27/24 by Aidee Walker MD omeprazole 20 mg PO DAILY sildenafil 100 mg PO ONCE PRN 30 days tadalafil 10 mg PO DAILY 90 days terazosin 5 mg PO BEDTIME testosterone 2 pumps topical DAILY 28 days Tobacco use date assessed: 02/27/24 Dental Screening Dental Screen Date: 02/27/24 Did you have a dental visit in the last 12 months?: Yes Did you have a dental problem in the last 6 months where you did not have access to dental care?: No Was dental information given to patient?: Patient has dentist HPI Annual PE HPI Details Patient is a 54-year-old gentlemen with elevated BMI, elevated blood pressure, admit to being under lot of stress and having difficulty sleeping at night because of that. Patient also goes to Urology for urological care Colonoscopy through [facility] I have ordered labs for the patient to be done fasting He has impaired fasting sugar I am starting him on Lexapro 10 mg Patient is to return in 3 weeks for blood pressure recheck and to follow up on medication. [facility] Medical History Sleep apnea COVID-19 vaccine series completed Difficulty urinating Obesity Lung nodule < 6cm on CT Erectile disorder, generalized, mild Lipid disorder Pre-diabetes Tobacco abuse Surgical History Hx of colonoscopy History of esophagogastroduodenoscopy (EGD) History of ankle surgery History of adenoidectomy Family History Father Bipolar disorder Alzheimer's disease, early onset Mother Breast cancer Fibromyalgia Maternal Grandfather No problems noted. Maternal Grandmother Type 2 diabetes mellitus Paternal Grandfather Pancreatic cancer Paternal Grandmother Lung cancer Smoker Sister No problems noted. Sister No problems noted. Son No problems noted. Other Mental health disorder Substance abuse Social History Household Members: Spouse Household Members Other:: and son- Housing: House Are you a primary health careers instructor to a significant other at home: No Do you presently have visiting nurse or other home services: No Alcohol intake: never Patient Tobacco Use Status: Current everyday Tobacco user Tobacco use type: Cigarette Cigarette Packs Per Day: 0.5 Cigarettes Per Day: 15 e-Cigarette/Vaping Use: Never Used Second Hand Smoke Exposure: No service: No Current occupational status: employed and retired Current occupation: Retired - [employer] Cognitive needs: No Hearing needs: No Vision needs: No Questionnaire PHQ-9 Over the last 2 weeks, how often have you been bothered by any of the following problems? 1. Little interest or pleasure in doing things: several days 2. Feeling down, depressed, or hopeless: several days 3. Trouble falling or staying asleep, or sleeping too much: several days 4. Feeling tired or having little energy: several days 5. Poor appetite or overeating: not at all 6. Feeling bad about yourself - or that you are a failure or have let yourself or your family down: several days 7. Trouble concentrating on things, such as reading the newspaper or watching television: not at all 8. Moving or speaking so slowly that other people could have noticed. Or the opposite - being so fidgety or restless that you have been moving around a lot more than usual: several days 9. Thoughts that you would be better off or of hurting yourself in some way: not at all Total score: 6 Depression Screening Interpretation: Negative Depression Screening Done: Yes 26601 - PHQ-9 Billing: Yes Source: Developed by Drs. Denny Ocampo, Manda Morales, Ankit Wadsworth and colleagues, with an educational argelia from [employer]. Thrive Questionnaire Date Thrive assessed: 02/27/24 I am a: Patient What is your living situation today?: I have a steady place to live Within the past 12 months, did the food you bought not last and you didn't have the money to get more?: Never true Within the past 12 months, did you worry whether your food would run out before you got money to buy more?: Never true Do you have trouble paying for medicines?: No Do you have trouble getting transportation to medical appointments?: No Do you have trouble paying your heating and electricity bill?: No Do you have trouble taking care of your child, family member or friend?: No Do you have trouble with day-to-day activities such as bathing, preparing meals, shopping, managing finances, etc.?: No Are you currently unemployed and looking for a job?: No Are you interested in more education?: No Please select the resources that you would like help with: None Currently or been in a relationship where the following occur: no concerns reported THRIVE Score: 0 AUDIT C Alcohol Use Questionnaire (AUDIT-C) 1. How often do you have a drink containing alcohol?: Never 3. How often do you have six or more drinks on one occasion?: Never Total Score: 0 Score Reviewed/Action Taken: Yes JASON-7 AMB Questionnaire JASON-7 Date JASON - 7 assessed: 02/27/24 Feeling nervous, anxious, or on edge: 0 = Not at all Not being able to stop or control worryin = Not at all Worrying too much about different things: 0 = Not at all Trouble relaxin = Not at all Being so restless that it is hard to sit still: 0 = Not at all Becoming easily annoyed or irritable: 0 = Not at all Feeling afraid as if something awful might happen: 0 = Not at all Total JASON-7 score (0-4 normal; 5-9 mild; 10-14 moderate; 15-21 severe): 0 Source: Developed by Drs. Denny Ocampo, Manda Morales, Ankit Wadsworth and colleagues, with an educational argelia from [employer]. JASON-7 Assessment Billing JASON-7 Assessment Tool: JASON-7 Assessment 82078 Review of Systems Const Denies chills, Denies fever(s) and Denies headache(s) Eyes Denies blurry vision ENT Denies headache(s), Denies nasal discharge, Denies nasal obstruction, Denies odynophagia and Denies sinus pain Card Denies chest pain at rest and Denies chest pain with activity Resp Denies cough and Denies hemoptysis GI Denies diarrhea, Denies odynophagia, Denies vomiting and Denies hematemesis Reports as per HPI Musc Denies abnormal gait Skin/Breast Reports as per HPI Neuro Denies Neuro-related abnormal movements, Denies Abnormal speech present, Denies abnormal gait, Denies headache(s) and Denies Sensory deficit (Neuro) Psych Denies mood swings and Denies paranoia Endo Reports as per HPI Jostin/Lymph Reports as per HPI Aller/Immun Reports as per HPI Physical exam (Primary Care) Vital Signs: Last Vital Signs Pulse 85 02/27/24 14:41 BP 146/78 H 02/27/24 14:41 Pulse Ox 96 02/27/24 14:41 Oxygen Delivery Method Room Air 02/27/24 14:41 BMI result Body Mass Index 36.4 Tobacco/Smoking Status: Tobacco use Status Tobacco use date assessed 02/27/24 02/27/24 14:44 Patient Tobacco Use Status Current everyday Tobacco 02/27/24 14:44 Tobacco use type Cigarette 02/27/24 14:44 e-Cigarette/Vaping Use Never Used 02/27/24 14:44 PHQ-9: PHQ-9 Score PHQ-9: Total score 6 02/27/24 15:15 Depression Screening Interpretation: Negative Thrive Assessment: Date of Thrive Assessment Date Thrive assessed 02/27/24 02/27/24 15:15 Currently or been in a relationship where the following occur: no concerns reported Const General: cooperative, comfortable and no acute distress Orientation/consciousness: patient oriented x3 HENMT Head: Yes normocephalic and Yes atraumatic Eyes General: appearance normal, both eyes and all related structures Pupils: Equal, round and reactive pupils present EOM: EOMs intact bilaterally Neck Neck: Yes supple and No lymphadenopathy Thyroid: Thyroid normal Lymphatic: no lymphadenopathy noted Resp Effort & Inspection: normal respiratory effort and able to speak in complete sentences Auscultation: clear to auscultation bilaterally Cardio Heart sounds: S1 normal heart sound present and S2 normal heart sound present GI Palpation (GI): Soft to palpation and nontender Auscultation: normal bowel sounds General: Yes no CVA tenderness Back/Spine/Pelvis Back: no CVA tenderness Skin General skin exam: elasticity normal and turgor normal Neuro General: patient oriented x3 and gait normal Cranial nerves: Yes Equal, round and reactive pupils present Speech: No Abnormal speech present Sensory Exam: No Sensory deficit (Neuro) Coordination: tandem gait normal and Romberg test negative Extrem General: Yes normal exam except as noted and No edema Assessment and Plan Assessment & Plan (1) Encounter for general adult medical examination with abnormal findings: Code(s): Z00.01 - Encounter for general adult medical examination with abnormal findings (2) Elevated blood pressure reading: Code(s): R03.0 - Elevated blood-pressure reading, without diagnosis of hypertension (3) Anxiety, generalized: Code(s): F41.1 - Generalized anxiety disorder (4) Difficulty sleeping: Code(s): G47.9 - Sleep disorder, unspecified (5) Pre-diabetes: Code(s): R73.03 - Prediabetes (6) Lipid disorder: Code(s): E78.9 - Disorder of lipoprotein metabolism, unspecified (7) Erectile disorder, generalized, mild: Code(s): F52.21 - Male erectile disorder (8) Chronic GERD: Code(s): K21.9 - Gastro-esophageal reflux disease without esophagitis (9) Major depression, recurrent: Code(s): F33.9 - Major depressive disorder, recurrent, unspecified Qualifiers: Active/Remission status: in partial remission Qualified Code(s): F33.41 - Major depressive disorder, recurrent, in partial remission (10) Obesity: Code(s): E66.9 - Obesity, unspecified Qualifiers: Body mass index: BMI 36.0-36.9 Obesity classification: adult class 2 (BMI 35 - 39.9) Obesity type: due to excess calories Serious obesity comorbidity presence: with serious comorbidity Qualified Code(s): E66.01 - Morbid (severe) obesity due to excess calories; Z68.36 - Body mass index [BMI] 36.0-36.9, adult Plan Patient is a 54-year-old gentlemen with elevated BMI, elevated blood pressure, admit to being under lot of stress and having difficulty sleeping at night because of that. Patient also goes to Urology for urological care Colonoscopy through [facility] I have ordered labs for the patient to be done fasting He has impaired fasting sugar I am starting him on Lexapro 10 mg Patient is to return in 3 weeks for blood pressure recheck and to follow up on medication. Orders: Orders Complete Blood Count Auto Diff Today E66.01 - Morbid (severe) obesity due to excess calories, E78.9 - Disorder of lipoprotein metabolism, unspecified, F33.9 - Major depressive disorder, recurrent, unspecified, F41.1 - Generalized anxiety disorder, F52.21 - Male erectile disorder, G47.9 - Sleep disorder, unspecified, K21.9 - Gastro-esophageal reflux disease without esophagitis, R03.0 - Elevated blood-pressure reading, without diagnosis of hypertension, R73.03 - Prediabetes, Z00.01 - Encounter for general adult medical examination with abnormal findings Vitamin D 25-OH (D2 and D3) Today E66.01 - Morbid (severe) obesity due to excess calories, E78.9 - Disorder of lipoprotein metabolism, unspecified, F33.9 - Major depressive disorder, recurrent, unspecified, F41.1 - Generalized anxiety disorder, F52.21 - Male erectile disorder, G47.9 - Sleep disorder, unspecified, K21.9 - Gastro-esophageal reflux disease without esophagitis, R03.0 - Elevated blood-pressure reading, without diagnosis of hypertension, R73.03 - Prediabetes, Z00.01 - Encounter for general adult medical examination with abnormal findings TSH reflex Free T4 Today E66.01 - Morbid (severe) obesity due to excess calories, E78.9 - Disorder of lipoprotein metabolism, unspecified, F33.9 - Major depressive disorder, recurrent, unspecified, F41.1 - Generalized anxiety disorder, F52.21 - Male erectile disorder, G47.9 - Sleep disorder, unspecified, K21.9 - Gastro-esophageal reflux disease without esophagitis, R03.0 - Elevated blood-pressure reading, without diagnosis of hypertension, R73.03 - Prediabetes, Z00.01 - Encounter for general adult medical examination with abnormal findings Comprehensive [place]. Panel Fast Today E66.01 - Morbid (severe) obesity due to excess calories, E78.9 - Disorder of lipoprotein metabolism, unspecified, F33.9 - Major depressive disorder, recurrent, unspecified, F41.1 - Generalized anxiety disorder, F52.21 - Male erectile disorder, G47.9 - Sleep disorder, unspecified, K21.9 - Gastro-esophageal reflux disease without esophagitis, R03.0 - Elevated blood-pressure reading, without diagnosis of hypertension, R73.03 - Prediabetes, Z00.01 - Encounter for general adult medical examination with abnormal findings Lipid Panel Today E66.01 - Morbid (severe) obesity due to excess calories, E78.9 - Disorder of lipoprotein metabolism, unspecified, F33.9 - Major depressive disorder, recurrent, unspecified, F41.1 - Generalized anxiety disorder, F52.21 - Male erectile disorder, G47.9 - Sleep disorder, unspecified, K21.9 - Gastro-esophageal reflux disease without esophagitis, R03.0 - Elevated blood-pressure reading, without diagnosis of hypertension, R73.03 - Prediabetes, Z00.01 - Encounter for general adult medical examination with abnormal findings Hemoglobin A1c Today E66.01 - Morbid (severe) obesity due to excess calories, E78.9 - Disorder of lipoprotein metabolism, unspecified, F33.9 - Major depressive disorder, recurrent, unspecified, F41.1 - Generalized anxiety disorder, F52.21 - Male erectile disorder, G47.9 - Sleep disorder, unspecified, K21.9 - Gastro-esophageal reflux disease without esophagitis, R03.0 - Elevated blood-pressure reading, without diagnosis of hypertension, R73.03 - Prediabetes, Z00.01 - Encounter for general adult medical examination with abnormal findings Medications: New escitalopram oxalate (Lexapro) 10 mg PO DAILY 30 tabs 0RF Coding Level of Care Code Est Pt Prev Care 40-64y(66498) Diagnoses Encounter for general adult medical examination with abnormal findings Z00.01 Elevated blood pressure reading R03.0 Anxiety, generalized F41.1 Difficulty sleeping G47.9 Pre-diabetes R73.03 Lipid disorder E78.9 Erectile disorder, generalized, mild F52.21 Chronic GERD K21.9 Recurrent major depressive disorder, in partial remission F33.41 Active/Remission status: in partial remission Class 2 severe obesity due to excess calories with serious comorbidity and body mass index (BMI) of 36.0 to 36.9 in adult E66.01; Z68.36 Body mass index: BMI 36.0-36.9 Obesity classification: adult class 2 (BMI 35 - 39.9) Obesity type: due to excess calories Serious obesity comorbidity presence: with serious comorbidity Additional Codes JASON-7 Assessment Billing - JASON-7 Assessment Tool: JASON-7 Assessment 46026 ([id number])
== END 2024-02-27 15:06 | disposition home or self-care (01) ==
PROVIDERS: Visit Provider Internal Medicine
DX: Z00.01 Encounter for general adult medical examination with abnormal findings (principal); R03.0 Elevated blood-pressure reading, without diagnosis of hypertension; E66.01 Morbid (severe) obesity due to excess calories; Z68.36 Body mass index [BMI] 36.0-36.9, adult; F33.41 Major depressive disorder, recurrent, in partial remission; F41.1 Generalized anxiety disorder; G47.9 Sleep disorder, unspecified; R73.03 Prediabetes; E78.9 Disorder of lipoprotein metabolism, unspecified; F52.21 Male erectile disorder; K21.9 Gastro-esophageal reflux disease without esophagitis
CPT/HCPCS: 99213; 99396

== ENCOUNTER 2024-03-16 07:27 | Outpatient (REF) | payer BC, SELFPAY ==
[2024-03-16 07:41] LABS: MANUAL DIFF FLAG NO
[2024-03-16 07:55] LABS: Basophils Percent Auto 0.5 % (0-2); Eosinophils Absolute Auto 0.3 X10*3/uL (0.0-0.4); Eosinophils Percent Auto 4.6 % (0-4); Hematocrit 44.8 % (42.0-52.0); Hemoglobin 15.5 g/dl (14.0-18.0); Imm Gran Abs Auto 0.02 X10*3/uL (0.00-0.03); Imm Gran Pct Auto 0.3 % (0.0-0.4); Lymphocytes Absolute Auto 1.8 X10*3/uL (1.2-4.9); Lymphocytes Percent Auto 29.4 % (20-40); Mean Corpuscular HGB Conc 34.6 g/dl (31.0-36.0); Mean Corpuscular Hemoglobin 31.1 pg (27.0-33.0); Mean Corpuscular Volume 89.8 fL (80.0-98.0); Mean Platelet Volume 9.5 fL (9.4-12.4); Monocytes Absolute Auto 0.3 X10*3/uL (0.1-1.2); Monocytes Percent Auto 5.6 % (2-11); Neutrophils Absolute Auto 3.6 x10*3/uL (2.0-8.3); Neutrophils Percent Auto 59.6 % (45-73); Platelet Count 174 X10*3/uL (160-400); Red Blood Count 4.99 X10*6/uL (4.60-5.80); Red Cell Distribution Width 12.7 % (11.0-16.0); White Blood Count 6.1 X10*3/uL (4.8-10.8)
[2024-03-16 08:17] LABS: Estimated Average Glucose 111 mg/dL; Hemoglobin A1C 146.0228 umol/L; Hemoglobin A1c % 5.5 % (<6.0)
[2024-03-16 08:40] LABS: Alanine Aminotransferase 30 U/L (0-40); Albumin Level 4.2 g/dL (3.5-5.0); Alkaline Phosphatase 47 U/L (39-117); Anion Gap 10 (12-20); Aspartate Amino Transferase 21 U/L (5-37); Bilirubin Total 0.6 mg/dL (0.0-1.0); Blood Urea Nitrogen 18 mg/dL (9-16); Calcium 9.3 mg/dL (8.4-10.2); Carbon Dioxide 26 mmol/L (22-29); Chloride 109 mmol/L (96-108); Cholesterol 189 mg/dL (<200); Estimated Glomerular Filt Rate > 60; Glucose Fasting 105 mg/dL (60-99); HDL Cholesterol 37 mg/dL (>40); LDL Cholesterol Calculated 95 mg/dL (<100); Potassium 4.2 mmol/L (3.3-5.1); Sodium 141 mmol/L (135-145); Total Protein 6.7 g/dL (6.5-8.0); Triglycerides 285 mg/dL (<150)
[2024-03-16 08:58] LABS: TSH reflex Free T4 1.01 uIU/mL (0.32-4.0)
[2024-03-20 13:42] LABS: Vitamin D 25-OH, D2 <4 ng/mL; Vitamin D 25-OH, D3 21 ng/mL; Vitamin D 25-OH, Total 21 ng/mL (30-100)
== END 2024-03-16 07:28 | disposition home or self-care (01) ==
LOC: HO.LAB 07:27
PROVIDERS: PCP Internal Medicine; Visit Provider Internal Medicine
DX: Z00.01 Encounter for general adult medical examination with abnormal findings (principal); R73.03 Prediabetes; E78.9 Disorder of lipoprotein metabolism, unspecified; F52.21 Male erectile disorder; K21.9 Gastro-esophageal reflux disease without esophagitis; F33.9 Major depressive disorder, recurrent, unspecified; E66.01 Morbid (severe) obesity due to excess calories; F41.1 Generalized anxiety disorder; G47.9 Sleep disorder, unspecified; R03.0 Elevated blood-pressure reading, without diagnosis of hypertension
CPT/HCPCS: 36415; 80053; 80061; 82306; 83036; 84443; 85025

== ENCOUNTER 2024-03-20 15:15 | Outpatient (AMB) | payer BC, SELFPAY ==
[2024-03-20 15:17] VITALS: BP 148/76; PULSE 86; O2SAT 98; BMI 39.0
--- NOTE | 2024-03-20 15:17 | A.OFFPC_ITS ---
Vital Signs 03/20/24 15:17 Height 6 ft Weight 287 lb 4 oz BMI 39.0 BP 148/76 H Blood Pressure Location Lt brachial Position Sitting Pulse 86 Pulse Source Pulse Oximeter Pulse Oximetry (%) 98 Oxygen Delivery Method Room Air Intake Visit Reasons: 3 week follow up Allergies escitalopram [From Lexapro] Adverse Reaction (Verified 03/20/24 15:34) Dizziness tamsulosin Adverse Reaction (Verified 03/20/24 15:20) Stomach Upset Environmental Allergy (Mild, Uncoded 12/05/23 15:46) allergy symptoms Medication List - Last Reconciled 03/20/24 by Aidee Walker MD escitalopram oxalate (Lexapro) 10 mg PO DAILY omeprazole 20 mg PO DAILY sildenafil 100 mg PO ONCE PRN 30 days tadalafil 10 mg PO DAILY 90 days terazosin 5 mg PO BEDTIME testosterone 2 pumps topical DAILY 28 days Tobacco use date assessed: 03/20/24 Dental Screening Dental Screen Date: 03/20/24 Did you have a dental visit in the last 12 months?: Yes Did you have a dental problem in the last 6 months where you did not have access to dental care?: No Was dental information given to patient?: Patient has dentist HPI 3 week follow up HPI Details Came in today for follow-up appointment anxiety and difficulty sleeping Patient could not tolerate Lexapro as it started causing dizziness so he stopped Patient has had sleep study twice, he does not have sleep apnea However patient does suffer from leg movement disorder and restless legs syndrome I am prescribing clonazepam 0.5 mg he is to start taking that at night Blood pressure continued to be elevated, he will get a blood pressure monitor and start logging his blood pressure Patient was instructed to book a nursing visit in 2 or 3 weeks and bring his monitor along. We will address the blood pressure issue after nursing visit. Labs done recently reviewed with the patient He has a impaired fasting sugar which came back at 01:05 Patient is aware about diet-controlled Vitamin-D level is low, I have sent supplement. Further follow-ups after nursing visit PS: I have found his sleep study [place] [address] Natividad scott, which shows severe sleep apnea But CPAP machine was not tolerated by the patient so it was discontinued I have discontinued request to pharmacy regarding clonazepam Script was just sent and was not picked up with the patient Changing medication to buspirone 7.5 mg to be taken in the evening [facility] Medical History Sleep apnea COVID-19 vaccine series completed Difficulty urinating Obesity Lung nodule < 6cm on CT Erectile disorder, generalized, mild Lipid disorder Pre-diabetes Tobacco abuse Surgical History Hx of colonoscopy History of esophagogastroduodenoscopy (EGD) History of ankle surgery History of adenoidectomy Family History Father Bipolar disorder Alzheimer's disease, early onset Mother Breast cancer Fibromyalgia Maternal Grandfather No problems noted. Maternal Grandmother Type 2 diabetes mellitus Paternal Grandfather Pancreatic cancer Paternal Grandmother Lung cancer Smoker Sister No problems noted. Sister No problems noted. Son No problems noted. Other Mental health disorder Substance abuse Social History Household Members: Spouse Household Members Other:: and son- Housing: House Are you a primary healthcare specialist to a significant other at home: No Do you presently have visiting nurse or other home services: No Alcohol intake: never Patient Tobacco Use Status: Current everyday Tobacco user Tobacco use type: Cigarette Cigarette Packs Per Day: 0.5 Cigarettes Per Day: 15 e-Cigarette/Vaping Use: Never Used Second Hand Smoke Exposure: No service: No Current occupational status: employed and retired Current occupation: Retired - [employer] Cognitive needs: No Hearing needs: No Vision needs: No Questionnaire Thrive Questionnaire Date Thrive assessed: 02/27/24 AUDIT C Alcohol Use Questionnaire (AUDIT-C) 1. How often do you have a drink containing alcohol?: Never 3. How often do you have six or more drinks on one occasion?: Never Total Score: 0 Score Reviewed/Action Taken: Yes JASON-7 AMB Questionnaire JASON-7 Date JASON - 7 assessed: 02/27/24 Source: Developed by Drs. Denny Ocampo, Manda Morales, Ankit Wadsworth and colleagues, with an educational argelia from [employer]. Review of Systems Const Denies chills and Denies fever(s) ENT Denies epistaxis and Denies nasal discharge Card Denies chest pain Resp Denies chest congestion, Denies cough and Denies hemoptysis GI Denies diarrhea and Denies nausea Skin/Breast Denies rash Neuro Reports no additional complaints Psych Reports no additional complaints Endo Reports no additional complaints Physical exam (Primary Care) Vital Signs: Last Vital Signs Pulse 86 03/20/24 15:17 BP 148/76 H 03/20/24 15:17 Pulse Ox 98 03/20/24 15:17 Oxygen Delivery Method Room Air 03/20/24 15:17 BMI result Body Mass Index 39.0 Tobacco/Smoking Status: Tobacco use Status Tobacco use date assessed 03/20/24 03/20/24 15:21 Patient Tobacco Use Status Current everyday Tobacco 03/20/24 15:21 Tobacco use type Cigarette 03/20/24 15:21 e-Cigarette/Vaping Use Never Used 03/20/24 15:21 Thrive Assessment: Date of Thrive Assessment Date Thrive assessed 02/27/24 03/20/24 15:21 Const General: cooperative, comfortable and no acute distress Orientation/consciousness: patient oriented x3 HENMT Head: Yes normocephalic Eyes General: appearance normal, both eyes and all related structures Neck Neck: Yes supple Resp Effort & Inspection: normal respiratory effort, no cough and no stridor Cardio Rhythm: regular rhythm Heart sounds: S1 normal heart sound present and S2 normal heart sound present Skin General skin exam: turgor normal Neuro General: patient oriented x3, tone normal and moves all extremities Extrem Right lower extremity: no edema Left lower extremity: no edema Assessment and Plan Assessment & Plan (1) Hypertension, essential: Code(s): I10 - Essential (primary) hypertension (2) Difficulty sleeping: Code(s): G47.9 - Sleep disorder, unspecified (3) Anxiety, generalized: Code(s): F41.1 - Generalized anxiety disorder (4) Pre-diabetes: Code(s): R73.03 - Prediabetes (5) Vitamin D deficiency: Code(s): E55.9 - Vitamin D deficiency, unspecified Plan Came in today for follow-up appointment anxiety and difficulty sleeping Patient could not tolerate Lexapro as it started causing dizziness so he stopped Patient has had sleep study twice, he does not have sleep apnea However patient does suffer from leg movement disorder and restless legs syndrome I am prescribing clonazepam 0.5 mg he is to start taking that at night Blood pressure continued to be elevated, he will get a blood pressure monitor and start logging his blood pressure Patient was instructed to book a nursing visit in 2 or 3 weeks and bring his monitor along. We will address the blood pressure issue after nursing visit. Labs done recently reviewed with the patient He has a impaired fasting sugar which came back at 01:05 Patient is aware about diet-controlled Vitamin-D level is low, I have sent supplement. Further follow-ups after nursing visit PS: I have found his sleep study [place] [address] Henson neurology, which shows severe sleep apnea But CPAP machine was not tolerated by the patient so it was discontinued I have discontinued request to pharmacy regarding clonazepam Script was just sent and was not picked up with the patient Changing medication to buspirone 7.5 mg to be taken in the evening Medications: New buspirone 7.5 mg PO .Q evening 30 tabs 0RF cholecalciferol (vitamin D3) 25 mcg PO DAILY 90 caps 1RF 90 days [Blood pressure monitor] As directed 1 ea 0RF I10 - Essential (primary) hypertension Discontinued escitalopram oxalate (Lexapro) Discontinued Reason: Doctor's Order 10 mg PO DAILY 30 tabs 0RF Coding Level of Care Code Est Pt Level 4 (43334) Diagnoses Hypertension, essential I10 Difficulty sleeping G47.9 Anxiety, generalized F41.1 Pre-diabetes R73.03 Vitamin D deficiency E55.9
== END 2024-03-20 16:08 | disposition home or self-care (01) ==
PROVIDERS: PCP Internal Medicine; Visit Provider Internal Medicine
DX: I10 Essential (primary) hypertension (principal); G47.9 Sleep disorder, unspecified; F41.1 Generalized anxiety disorder; R73.03 Prediabetes; E55.9 Vitamin D deficiency, unspecified
CPT/HCPCS: 99214

== ENCOUNTER 2024-04-25 07:22 | Day surgery (SDC) | payer BC, SELFPAY ==
[2024-04-23 09:54] VITALS: BMI 38.9
--- NOTE | 2024-04-24 09:43 | HO.ANESPROP2 ---
Documented by User: Kassie Pretty NP 04/24/24 09:45 HPI - Anesthesia Eval Consult details Narrative: 54yo M for Upper Endoscopy and Colonoscopy [facility] Active Problems Active Problems: All Active Problems Vitamin D deficiency (Acute) Hypertension, essential (Acute) Elevated blood pressure reading (Acute) Difficulty sleeping (Acute) Anxiety, generalized (Acute) Hospital discharge follow-up (Acute) Hepatomegaly with splenomegaly, not elsewhere classified (Acute) LFT elevation (Acute) Acute pancreatitis (Acute) Morbid obesity due to excess calories (Acute) Elevated PSA (Acute) Chronic esophagitis (Acute) Elevated PSA (Acute) Erectile dysfunction (Acute) Hemorrhoids (Acute) Low hemoglobin (Acute) Lipid disorder (Acute) Obesity due to excess calories (Acute) Major depression, recurrent (Acute) Hypersomnia (Acute) Snoring (Acute) Chronic GERD (Acute) Sessile colonic polyp (Acute) Weak urinary stream (Acute) Low libido (Acute) BPH w urinary obs/LUTS (Acute) Low testosterone (Acute) Encounter for general adult medical examination with abnormal findings (Acute) Sleep-wake schedule disorder, frequently changing type (Acute) Colon cancer screening (Acute) Difficulty swallowing (Acute) Abdominal pain (Acute) Difficulty urinating (Acute) Obesity (Acute) Lung nodule < 6cm on CT (Acute) Erectile disorder, generalized, mild (Acute) Lipid disorder (Acute) Pre-diabetes (Acute) Tobacco abuse (Acute) Past Medical History Medical History Sleep apnea COVID-19 vaccine series completed Difficulty urinating Obesity Lung nodule < 6cm on CT Erectile disorder, generalized, mild Lipid disorder Pre-diabetes Tobacco abuse Family History Family History Father Bipolar disorder Alzheimer's disease, early onset Mother Breast cancer Fibromyalgia Maternal Grandfather No problems noted. Maternal Grandmother Type 2 diabetes mellitus Paternal Grandfather Pancreatic cancer Paternal Grandmother Lung cancer Smoker Sister No problems noted. Sister No problems noted. Son No problems noted. Other Mental health disorder Substance abuse Surgical History Surgical History Hx of colonoscopy History of esophagogastroduodenoscopy (EGD) History of ankle surgery History of adenoidectomy History of Problems with Anesthesia: No Social History Social History Household Members: Spouse Household Members Other:: and son- Housing: House Are you a primary pet caretaker to a significant other at home: No Do you presently have visiting nurse or other home services: No Alcohol intake: never Patient Tobacco Use Status: Current everyday Tobacco user Tobacco use type: Cigarette Cigarette Packs Per Day: 0.5 Cigarettes Per Day: 15 e-Cigarette/Vaping Use: Never Used Second Hand Smoke Exposure: No Are you DNR?: No Advance Directives: No Advance Directives Information Provided: Yes Nutrition Risks: No Nutritional Risk service: No Current occupational status: employed and retired Current occupation: Retired - [employer] Cognitive needs: No Hearing needs: No Vision needs: No Meds Allergies Allergy/AdvReac Type Severity Reaction Status Date / Time Environmental Allergy Mild allergy Uncoded 12/05/23 15:46 symptoms Exam Height,Weight and Vital Signs: Height 6 ft Weight 130.181 kg Pertinent Lab Results Pertinent Lab Results: Laboratory Tests 03/16/24 07:40 WBC 6.1 Hgb 15.5 Hct 44.8 Plt Count 174 Sodium 141 Potassium 4.2 Chloride 109 H Carbon Dioxide 26 BUN 18 H Creatinine 1.16 Assessment and Plan Assessment Anesthesia Assessment: Chart Reviewed Final Anesthetic Review History of Problems with Anesthesia: No Documented by User: Sidra Ellington MD 04/25/24 07:48 PMFSH Past Medical History Medical History Sleep apnea COVID-19 vaccine series completed Difficulty urinating Obesity Lung nodule < 6cm on CT Erectile disorder, generalized, mild Lipid disorder Pre-diabetes Tobacco abuse Family History Family History Father Bipolar disorder Alzheimer's disease, early onset Mother Breast cancer Fibromyalgia Maternal Grandfather No problems noted. Maternal Grandmother Type 2 diabetes mellitus Paternal Grandfather Pancreatic cancer Paternal Grandmother Lung cancer Smoker Sister No problems noted. Sister No problems noted. Son No problems noted. Other Mental health disorder Substance abuse Family history of problems with anesthesia: No Surgical History Surgical History Hx of colonoscopy History of esophagogastroduodenoscopy (EGD) History of ankle surgery History of adenoidectomy Social History Social History Household Members: Spouse Household Members Other:: and son- Housing: House Are you a primary pet caretaker to a significant other at home: No Do you presently have visiting nurse or other home services: No Alcohol intake: never Patient Tobacco Use Status: Current everyday Tobacco user Tobacco use type: Cigarette Cigarette Packs Per Day: 0.5 Cigarettes Per Day: 15 e-Cigarette/Vaping Use: Never Used Second Hand Smoke Exposure: No Are you DNR?: No Advance Directives: No Advance Directives Information Provided: Yes Nutrition Risks: No Nutritional Risk service: No Current occupational status: employed and retired Current occupation: Retired - [employer] Cognitive needs: No Hearing needs: No Vision needs: No Meds Allergies Allergy/AdvReac Type Severity Reaction Status Date / Time Environmental Allergy Mild allergy Uncoded 12/05/23 15:46 symptoms Exam Airway Mallampati Class: III (redundant neck tissue ) TM Dist: >3cm Neck ROM: Full Heart: rrr Lungs: cta Assessment and Plan Assessment Anesthesia Assessment: Anesthesia Plan Discussed Final Anesthetic Review Family History of Problems with Anesthesia: No NPO: Yes ASA Class: III Final Preanesthetic Review: No Changes in Pt Med Stat, Meds/Allgs Chart Reviewed, Consent Obtained/Reviewed and Anes Risks/Benef Reviewed Patient Risk: Intermediate Procedure Risk: Intermediate Anesthetic Plan Anesthetic Plan: MAC: Disposition: Standard PACU
[2024-04-25 07:40] VITALS: BP 133/82; PULSE 78; RESP 20; TEMP 36.9; O2SAT 95
[2024-04-25 07:52] VITALS: BMI 40.2
[2024-04-25] MEDS: Lactated Ringers 1,000 ML 100 ML IVCONT (07:58)
--- NOTE | 2024-04-25 08:31 | MHC.SHP ---
Pre-Procedural Eval Section A - 24 Hr Update-Section A only Date of Service: 04/25/24 Section B - Complete if H&P > 30 days Chief Complaint: Change in bowel habit Relevant Family History (Specify if Yes): No Relevant Social History: Tobacco Use Present Medications: see Short Stay Collaborative assessment Medical History: Significant History ( Sleep apnea COVID-19 vaccine series completed Difficulty urinating Obesity Lung nodule < 6cm on CT Erectile disorder, generalized, mild Lipid disorder Pre-diabetes Tobacco abuse) History of Previous Operations: Relevant previous surgery/procedure and date(s) (Hx of colonoscopy History of esophagogastroduodenoscopy (EGD) History of ankle surgery History of adenoidectomy) Allergies: Allergies Allergy/AdvReac Type Severity Reaction Status Date / Time Environmental Allergy Mild allergy Uncoded 12/05/23 15:46 symptoms Review of Systems Sugical H&P ROS: Negative: Constitution, Cardiovascular, Respiratory, Neurological, Psychiatric, Hem-Onc, Allergic/Immunologic, Gastrointestinal, Genitourinary, Musculoskeletal, Integumentary, Endocrine and Eyes/Ears/Nose/Throat Exam Surgical H&P Exam: Normal: HEENT, Normal: Heart, Normal: Lungs, Normal: Extremities, Normal: Abdomen, Normal: Skin and Normal: Neurological Plan Diagnosis/Plan: Unchanged I have reviewed the history and physical and performed a pertinent physical examination on my patient. No changes have occurred unless specified. Time Spent With Patient Time: Total time managing care of this patient today ____ minutes.
--- NOTE | 2024-04-25 09:09 | P.OPN-COLO_ITS ---
Colonoscopy Operative Note Operative Note Date of Service: 04/25/24 Narrative: Operative Information Procedure Description: EGD, Colonoscopy Indication: GERD< abdominal pain, abn bowel habits Anesthesia: MAC FLEXIBLE TRANSORAL UPPER GASTROINTESTINAL ENDOSCOPY AND COLONOSCOPY PROCEDURE NOTE UPPER ENDOSCOPY Consent: Indications for the procedure and potential complications of bleeding, perforation, reaction to medications and missed diagnosis were discussed with the patient and informed consent was obtained. Instrument: Olympus GIF H 190 J mid size upper endoscope Monitoring: Vital signs and clinical assessment, continuous EKG monitoring, Pulse oximetry, Carbon Dioxide monitoring and blood pressure monitoring were done throughout the procedure. Procedure: The patient was placed in the left lateral decubitis position and pre-procedure medications were administered and a bite block was placed. The endoscope was inserted into the mouth and advanced under direct vision to the third part of duodenum. A careful inspection was made as the upper endoscope was withdrawn including a retroflexed examination of the proximal stomach; Findings and interventions are described below. Findings: Larynx:normal Esophagus: GE junction at 42 cm, diaphragm hiatus at 42 cm, irregular z line, bx taken to r/o barretts Stomach: Mild erythema. Biopsies were obtained. Grade 2 flap valve on retroflexed examination of the cardia. Duodenum: Mild bulbar duodenitis Intervention: Biopsies as noted above, COLONOSCOPY Instrument: Olympus variable stiffness ADULT scope 190L Colonoscopy Monitoring: Vital signs and clinical assessment, continuous EKG monitoring, Pulse oximetry, Carbon Dioxide monitoring and blood pressure monitoring were done throughout the procedure. Colon withdrawal time was 9 minutes. Procedure: The patient was placed in the left lateral decubitis position and pre-procedure medications were administered. After a digital rectal examination of the ano-rectum, the video colonoscope was inserted into the rectum and advanced through the colon to the cecum/TI. The colonoscope was slowly withdrawn in a retrograde panoramic fashion and the colon mucosa was carefully examined including a retroflexed view of the rectum. Findings and interventions are described below. Procedure Difficulty:moderate Findings: Terminal Ileum-normal, bx taken Random bx taken from right and left colon in separate jars Cecum: 3-4 mm sessile polyp-removed cold forceps Ascending Colon: normal Transverse Colon -normal Descending Colon:normal Sigmoid Colon: normal Rectum: Retroflexion with small internal hemorrhoids, grade I Anorectum - normal Colon preparation: [place] Bowel Preparation Scale Right colon; 2 Transverse colon: 3 Left colon; 3 (0 = Unprepared colon segment with mucosa not seen due to solid stool that cannot be cleared. 1 = Portion of mucosa of the colon segment seen, but other areas of the colon segment not well seen due to staining, residual stool and/or opaque liquid. 2 = Minor amount of residual staining, small fragments of stool and/or opaque liquid, but mucosa of colon segment seen well. 3 = Entire mucosa of colon segment seen well with no residual staining, small fragments of stool or opaque liquid) Impression and Post Procedure Diagnosis: Endoscopy Findings: mild duodenitis Colonoscopy Findings: colon polyp small internal hemorrhoids Plan: Await Pathology results Repeat Colonoscopy in 5 years due to prior hx of colon polyp or earlier if clinically indicated High fiber diet leaflet avoid straining at stool, epsom salts and sitz bath, anusol supps or cream GERD precautions Above findings were reviewed with the patient and relevant handouts were provided if indicated.
[2024-04-25 09:51] VITALS: BP 157/88; PULSE 86; RESP 18; TEMP 36.7; O2SAT 93
[2024-04-25 10:06] VITALS: BP 144/91; PULSE 78; RESP 18; TEMP 36.7; O2SAT 96
[2024-04-25 10:21] VITALS: BP 138/99; PULSE 78; RESP 18; TEMP 36.3; O2SAT 96
== END 2024-04-25 10:48 | disposition home or self-care (01) ==
PROVIDERS: PCP Internal Medicine; Visit Provider Internal Medicine Gastroenterology
PROC: (CPT 45380; principal; 2024-04-25 09:00)
DX: R19.4 Change in bowel habit (principal); D12.0 Benign neoplasm of cecum; K64.0 First degree hemorrhoids; R10.9 Unspecified abdominal pain; Z87.19 Personal history of other diseases of the digestive system; K21.9 Gastro-esophageal reflux disease without esophagitis; K29.80 Duodenitis without bleeding; K22.89 Other specified disease of esophagus; K44.9 Diaphragmatic hernia without obstruction or gangrene; R73.03 Prediabetes; K76.0 Fatty (change of) liver, not elsewhere classified; R79.89 Other specified abnormal findings of blood chemistry; E66.01 Morbid (severe) obesity due to excess calories; Z88.8 Allergy status to other drugs, medicaments and biological substances; Z98.890 Other specified postprocedural states; F17.210 Nicotine dependence, cigarettes, uncomplicated
CPT/HCPCS: 45380; 43239; 88305; 88313; 88342; J1596; J2250; J2704

== ENCOUNTER → 2024-04-25 07:22 | Outpatient (BNV) | payer BC, SELFPAY | PROVIDERS: PCP Internal Medicine; Visit Provider Internal Medicine Gastroenterology | DX: K21.9 Gastro-esophageal reflux disease without esophagitis (principal); K29.80 Duodenitis without bleeding; R19.4 Change in bowel habit; K63.5 Polyp of colon; K64.0 First degree hemorrhoids | CPT/HCPCS: 43239; 45380 ==

== ENCOUNTER 2024-05-10 09:13 | Outpatient (AMB) | payer BC, SELFPAY ==
--- NOTE | 2024-05-10 09:14 | MHC.OFFVIS ---
Vital Signs 05/10/24 09:15 Height 6 ft Weight 296 lb 11.875 oz BMI 40.2 Intake Visit Reasons: [facility] PT EST, POST OP Intake Note: Pt c/o; reports no complaints. 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 Accompanied by: Self / Same As Patient Allergies Environmental Allergy (Mild, Uncoded 05/10/24 09:17) allergy symptoms HPI HPI [facility]RIEL PT EST, POST OP: Details: LAST OFFICE VISIT: (1) Hepatomegaly with splenomegaly, not elsewhere classified: Code(s): R16.2 - Hepatomegaly with splenomegaly, not elsewhere classified Plan: A/P: 1/ Abn bowel habits and tenesmus, abdominal pain 2/ hx of pancreatitis, GB polyp PLAN: 1/ EGD, colo for further assessment hawa given hx of esophagitis, polyp 2/ repeat US due to suspected GB polyp, also r/o stones 3/ recheck labs incl HGB (2) LFT elevation: Code(s): R79.89 - Other specified abnormal findings of blood chemistry Plan: A/P: 1/ Abn bowel habits and tenesmus, abdominal pain 2/ hx of pancreatitis, GB polyp PLAN: 1/ EGD, colo for further assessment hawa given hx of esophagitis, polyp 2/ repeat US due to suspected GB polyp, also r/o stones 3/ recheck labs incl HGB (3) Acute pancreatitis: Code(s): K85.90 - Acute pancreatitis without necrosis or infection, unspecified Plan: A/P: 1/ Abn bowel habits and tenesmus, abdominal pain 2/ hx of pancreatitis, GB polyp PLAN: 1/ EGD, colo for further assessment hawa given hx of esophagitis, polyp 2/ repeat US due to suspected GB polyp, also r/o stones 3/ recheck labs incl HGB UPPER ENDOSCOPY AND COLONOSCOPY Findings: Larynx:normal Esophagus: GE junction at 42 cm, diaphragm hiatus at 42 cm, irregular z line, bx taken to r/o barretts Stomach: Mild erythema. Biopsies were obtained. Grade 2 flap valve on retroflexed examination of the cardia. Duodenum: Mild bulbar duodenitis Intervention: Biopsies as noted above, Findings: Terminal Ileum-normal, bx taken Random bx taken from right and left colon in separate jars Cecum: 3-4 mm sessile polyp-removed cold forceps Ascending Colon: normal Transverse Colon -normal Descending Colon:normal Sigmoid Colon: normal Rectum: Retroflexion with small internal hemorrhoids, grade I Anorectum - normal Colon preparation: [place] Bowel Preparation Scale Right colon; 2 Transverse colon: 3 Left colon; 3 (0 = Unprepared colon segment with mucosa not seen due to solid stool that cannot be cleared. 1 = Portion of mucosa of the colon segment seen, but other areas of the colon segment not well seen due to staining, residual stool and/or opaque liquid. 2 = Minor amount of residual staining, small fragments of stool and/or opaque liquid, but mucosa of colon segment seen well. 3 = Entire mucosa of colon segment seen well with no residual staining, small fragments of stool or opaque liquid) Impression and Post Procedure Diagnosis: Endoscopy Findings: mild duodenitis Colonoscopy Findings: colon polyp small internal hemorrhoids Plan: Await Pathology results Repeat Colonoscopy in 5 years due to prior hx of colon polyp or earlier if clinically indicated High fiber diet leaflet avoid straining at stool, epsom salts and sitz bath, anusol supps or cream GERD precautions PATHOLOGY RESULTS Diagnosis A. Duodenum, biopsy: Duodenal mucosa within normal limits. B. Stomach, biopsy: Antral-type and oxyntic mucosa within normal limits; no Helicobacter organisms seen. C. GE junction, biopsy: - Cardiofundic-type mucosa with moderate chronic inactive inflammation; no intestinal metaplasia seen. - Active esophagitis (maximum eosinophil count 5 per high powered field). D. Esophagus, distal, biopsy: Squamous mucosa within normal limits; no inflammation seen. E. Cecum, polypectomy: Sessile serrated lesion/polyp; negative for cytologic dysplasia. F. Terminal ileum, biopsy: Terminal ileal mucosa within normal limits. G. Colon, right, biopsy: Colonic mucosa within normal limits. H. Colon, left, biopsy: Colonic mucosa within normal limits TODAY'S VISIT Patient is here today for follow-up discuss upper endoscopy and colonoscopy results. Patient previously seen by Charleen Ruiz, colonoscopy done by Dr. Lake. Patient denies any ill effects from the prep, anesthesia or procedure itself, however patient does admit that after procedure he was having trouble moving his bowels feeling bloated for about a week or so. Symptoms better, however still has trouble moving his bowels. Patient reports that he takes fiber and when he does it feels like it bites him even more. Diagnosed with esophagitis, patient is taking omeprazole, however admits that he will forget to take it sometimes and then he will have reflux specially at night time. Occasional epigastric discomfort postprandially. Frequent abdominal bloating. Patient denies melena, hematochezia, unintentional weight loss or ribbon like stools. Reports occasional dyspepsia without dysphagia or odynophagia. [facility] Medical History Sleep apnea COVID-19 vaccine series completed Difficulty urinating Obesity Lung nodule < 6cm on CT Erectile disorder, generalized, mild Lipid disorder Pre-diabetes Tobacco abuse Surgical History Hx of colonoscopy History of esophagogastroduodenoscopy (EGD) History of ankle surgery History of adenoidectomy Family History Father Bipolar disorder Alzheimer's disease, early onset Mother Breast cancer Fibromyalgia Maternal Grandfather No problems noted. Maternal Grandmother Type 2 diabetes mellitus Paternal Grandfather Pancreatic cancer Paternal Grandmother Lung cancer Smoker Sister No problems noted. Sister No problems noted. Son No problems noted. Other Mental health disorder Substance abuse Social History Household Members: Spouse Household Members Other:: and son- Housing: House Are you a primary administrator health care facility to a significant other at home: No Do you presently have visiting nurse or other home services: No Alcohol intake: never Patient Tobacco Use Status: Current everyday Tobacco user Tobacco use type: Cigarette Cigarette Packs Per Day: 0.5 Cigarettes Per Day: 15 e-Cigarette/Vaping Use: Never Used Second Hand Smoke Exposure: No service: No Current occupational status: employed and retired Current occupation: Retired - [employer] Cognitive needs: No Hearing needs: No Vision needs: No Review of Systems Const Denies weight gain and Denies weight loss ENT Reports no additional complaints, Denies dysphagia and Denies odynophagia Card Reports no additional complaints Resp Reports no additional complaints GI Denies abdominal pain, Denies belching, Denies melena, Reports bloating, Denies change in bowel habits, Reports constipation, Denies dysphagia, Denies excessive flatus, Denies dyspepsia, Reports heartburn, Denies diarrhea, Denies loose stools, Denies nausea, Denies odynophagia and Denies vomiting Reports no additional complaints Musc Reports no additional complaints Neuro Reports no additional complaints Psych Reports no additional complaints Endo Reports no additional complaints Physical Exam Vital Signs: BMI result Body Mass Index 40.2 Const General: healthy appearing and no acute distress Nutritional Appearance: obese Orientation/consciousness: patient oriented x3 Resp Effort & Inspection: normal respiratory effort, able to speak in complete sentences, no tracheal deviation and symmetric chest movement Auscultation: clear to auscultation bilaterally Cardio Rate: regular rate GI Inspection: Yes normal to inspection, No distended and Yes obesity Palpation (GI): Soft to palpation, not firm, nontender and No hepatosplenomegaly present Auscultation: normal bowel sounds General: Yes no CVA tenderness Back/Spine/Pelvis Back: no CVA tenderness Skin General skin exam: elasticity normal, turgor normal and dry skin Neuro General: patient oriented x3 Psych Appearance: grossly normal Mental Status: mental status grossly normal Assessment & Plan Assessment & Plan (1) Chronic esophagitis: Code(s): K20.90 - Esophagitis, unspecified without bleeding Category: Medical (2) Chronic GERD: Code(s): K21.9 - Gastro-esophageal reflux disease without esophagitis Category: Medical (3) Sessile colonic polyp: Code(s): K63.5 - Polyp of colon Category: Medical (4) Status post colonoscopy: Code(s): Z98.890 - Other specified postprocedural states (5) Constipation: Code(s): K59.00 - Constipation, unspecified Qualifiers: Constipation type: slow transit constipation Qualified Code(s): K59.01 - Slow transit constipation Plan Continue omeprazole daily. Avoid dietary triggers and late night snacking staying upright for minimum 3 hours after meals discussed with patient. Postprandial abdominal bloating occasionally. Increase fiber and fluid intake. Low FODMAP diet discussed with patient. List of food recommended as well as list of food to avoid given to patient. Patient will start taking senna as he is not moving his bowels daily. Colonoscopy in 5 years due to sessile serrated polyp and history of polyps in the past. Patient will return to the office in 6 months, sooner on as needed basis. He is agreeable to this plan and verbalizes understanding of instructions. He was given the opportunity to ask questions and all questions answered. Thank you for allowing me to participate in his care Medications: New sennosides (Natural Senna Laxative) 17.2 mg (2 x 8.6 mg) PO BEDTIME 60 tabs 3RF constipation K59.00 - Constipation, unspecified Coding Level of Care Code Est Pt Level 3 (84860) Diagnoses Chronic esophagitis K20.90 Chronic GERD K21.9 Sessile colonic polyp K63.5 Status post colonoscopy Z98.890 Slow transit constipation K59.01 Constipation type: slow transit constipation Time Spent (min) 35 Comment 20 minutes spent with patient and additional 15 minutes spent reviewing his records
[2024-05-10 09:15] VITALS: BMI 40.2
== END 2024-05-10 09:37 | disposition home or self-care (01) ==
PROVIDERS: PCP Internal Medicine; Visit Provider Nurse Practitioner Family
DX: K20.90 Esophagitis, unspecified without bleeding (principal); K21.9 Gastro-esophageal reflux disease without esophagitis; K63.5 Polyp of colon; Z98.890 Other specified postprocedural states; K59.01 Slow transit constipation
CPT/HCPCS: 99213

== ENCOUNTER → 2024-05-10 09:13 | Outpatient (BNVA) | payer BC, SELFPAY | PROVIDERS: PCP Internal Medicine; Visit Provider Nurse Practitioner Family ==

== ENCOUNTER 2024-06-08 07:20 | Outpatient (REF) | payer BC, SELFPAY ==
[2024-06-08 08:20] LABS: Hematocrit 43.1 % (42.0-52.0); Hemoglobin 14.7 g/dl (14.0-18.0); Mean Corpuscular HGB Conc 34.1 g/dl (31.0-36.0); Mean Corpuscular Hemoglobin 31.2 pg (27.0-33.0); Mean Corpuscular Volume 91.5 fL (80.0-98.0); Mean Platelet Volume 9.6 fL (9.4-12.4); Platelet Count 190 X10*3/uL (160-400); Red Blood Count 4.71 X10*6/uL (4.60-5.80); Red Cell Distribution Width 12.7 % (11.0-16.0); White Blood Count 7.1 X10*3/uL (4.8-10.8)
== END 2024-06-08 07:21 | disposition home or self-care (01) ==
LOC: HO.LAB 07:20
PROVIDERS: PCP Internal Medicine; Visit Provider Urology
DX: R79.89 Other specified abnormal findings of blood chemistry (principal); Z12.5 Encounter for screening for malignant neoplasm of prostate
CPT/HCPCS: 36415; 84153; 84403; 85027

== ENCOUNTER 2024-06-18 11:35 | Outpatient (AMB) | payer BC, SELFPAY ==
--- NOTE | 2024-06-18 11:37 | A.OFFVIS_ITS ---
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 He is a patient of Dr. Walker. He is seen for the following urologic conditions - lower urinary tract symptoms - hypogonadism - erectile dysfunction Telemedicine Evaluation 15 min Consultation [employer] Refill testosterone prescription Prescription filled for combination tadalafil and sildenafil Terazosin completed Known high PSA Prostate biopsy March 2022 - normal MRI 12/02 Discussed testosterone therapy. Prescription of testosterone gel. Description of application process. Follow-up the efficacy review May benefit from evaluation for sleep apnea 12/02 Prostate MRI for elevated PSA persistent - prior negative biopsy - 60 g prostate - no areas of suspicion Six-month follow-up labs Lower urinary tract symptoms Current visit is for - further evaluation of primarily obstructive symptoms. Current treatment includes - alpha-hanh - terazosin 5 mg Prior treatments include - none Prostate Symptom Score - 10/29 mild symptoms, bother 2 Symptoms include - 10/29 weak stream, symptoms improving Results from testing include - 03/30 Prostate Biopsy - inflammation Prior Prostate Score moderate PSA 12/25 3.0, 11/29 4.8, 01/28 5.1, 09/29 6.5, 02/28 7.3, 09/30 7.1, 06/01 7.3 Hypogonadism Continue clomiphene 50 mg every other day Testosterone is climbing 10/29 244, 01/27 380, 06/29 146, 01/28 283, 02/28 250 HBA1c 5.3 TG 227, 09/20 230, 12/02 T 330 Also noting response to daily tadalafil with sildenafil on demand He presents today for further evaluation of complaints regarding hypogonadism, Initial symptoms include erectile dysfunction Yes decreased libido Yes change in mood/depression Yes in muscle size/strength Yes increased fatigue/malaise Yes - tired all the time The onset of symptoms has been gradual Erectile status nocturnal erections do not, can have erection sufficient penetration but not maintain to orgasm. Associate conditions include chronic pain with opioid use No obstructive sleep apnea No CAD No diabetes No dyslipidemia No hypertension No obesity No stress - financial, family, employment No heavy alcohol or illicit drug use No He has been taking - JEREMY, tobacco Erectile dysfunction Daily tadalafil 10 mg On demand sildenafil 100mg variable effect May try 20mg tadalafil on demand PFSH Medical History Sleep apnea COVID-19 vaccine series completed Difficulty urinating Obesity Lung nodule < 6cm on CT Erectile disorder, generalized, mild Lipid disorder Pre-diabetes Tobacco abuse Surgical History Hx of colonoscopy History of esophagogastroduodenoscopy (EGD) History of ankle surgery History of adenoidectomy Family History Father Bipolar disorder Alzheimer's disease, early onset Mother Breast cancer Fibromyalgia Maternal Grandfather No problems noted. Maternal Grandmother Type 2 diabetes mellitus Paternal Grandfather Pancreatic cancer Paternal Grandmother Lung cancer Smoker Sister No problems noted. Sister No problems noted. Son No problems noted. Other Mental health disorder Substance abuse Social History Household Members: Spouse Household Members Other:: and son- Housing: House Are you a primary director of patient care to a significant other at home: No Do you presently have visiting nurse or other home services: No Alcohol intake: never Patient Tobacco Use Status: Current everyday Tobacco user Tobacco use type: Cigarette Cigarette Packs Per Day: 0.5 Cigarettes Per Day: 15 e-Cigarette/Vaping Use: Never Used Second Hand Smoke Exposure: No service: No Current occupational status: employed and retired Current occupation: Retired - [employer] Cognitive needs: No Hearing needs: No Vision needs: No Review of Systems Const All systems reviewed & are unremarkable except as noted in HPI and below Reports no additional complaints Resp Reports no additional complaints GI Reports no additional complaints Reports as per HPI Musc Reports no additional complaints Physical Exam Telemedicine evaluation Appropriate responses Regular breathing rate and rhythm HEENT Head: Yes normal to inspection Ears: hearing grossly normal bilaterally Eyes General: appearance normal, both eyes and all related structures Neck Neck: Yes normal visual inspection Chest Chest palpation & inspection: normal inspection of the chest Resp Effort & Inspection: normal respiratory effort and able to speak in complete sentences Telehealth Telehealth Location of provider rendering services: practice address Location of patient: address on file Patient Identification confirmed using: Name, : Yes Telehealth method: video Patient verbally consented to treatment: Yes Patient verbally consented to billing insurance company: Yes Patient informed of any privacy concerns related to visit: Yes Assessment & Plan Assessment & Plan (1) Elevated PSA: Code(s): R97.20 - Elevated prostate specific antigen [PSA] Category: Medical (2) Low testosterone: Code(s): R7.89 - Other specified abnormal findings of blood chemistry Category: Medical (3) BPH w urinary obs/LUTS: Code(s): N40.1 - Benign prostatic hyperplasia with lower urinary tract symptoms; N13.8 - Other obstructive and reflux uropathy Category: Medical (4) Erectile disorder, generalized, mild: Code(s): F52.21 - Male erectile disorder Category: Medical Plan Six-month follow-up labs Orders: Orders Prostate Specific Antigen 6 Months - Other specified abnormal findings of blood chemistry Complete Blood Count no Diff 6 Months - Other specified abnormal findings of blood chemistry Testosterone, Total 6 Months R7. - Other specified abnormal findings of blood chemistry Medications: Refilled sildenafil administer 60 minutes before intended activity 100 mg PO ONCE 30 days PRN 30 tabs 1RF sexual activity N52.9 - Male erectile dysfunction, unspecified testosterone apply 1 pump amount over max area of EACH upper arm and shoulder 2 pumps topical DAILY 28 days 75 grams 5RF R79.89 - Other specified abnormal findings of blood chemistry tadalafil 10 mg PO DAILY 90 days 90 tabs 1RF sexual activity N52.01 - Erectile dysfunction due to arterial insufficiency Discontinued terazosin Discontinued Reason: Patient Completed Course 5 mg PO BEDTIME 90 caps 2RF N13.8 - Other obstructive and reflux uropathy, N40.1 - Benign prostatic hyperplasia with lower urinary tract symptoms, R39.12 - Poor urinary stream Patient Instructions: Imaging studies, laboratory and physical exam results were discussed and reviewed in detail. No major barriers to patient understanding were identified. An opportunity to ask questions regarding the treatment plan was provided. All questions were answered. The patient expressed understanding and agreement with the above treatment plan. The patient is aware they should contact our office by phone for worsening of their current condition or the appearance of new urologic symptoms. Compliance is encouraged with any medications and followup testing that is ordered. It is a privilege to participate in the urologic care of your patient. If you have any questions or concerns regarding treatment for the above conditions, or other urologic issues, please do not hesitate to contact me. The office telephone contact is [phone]. This note is constructed using voice recognition software. While every effort has been made to ensure accuracy dentistry teacher errors may have been included. Yours sincerely, Dr Akhil Tripathi MD, [facility] - Urology Providers of Expert, Compassionate Care for the Genitourinary System Coding Level of Care Code Tele Est Pt Level 3 (92980) Diagnoses Elevated PSA R97.20 Low testosterone R79.89 BPH w urinary obs/LUTS N40.1; N13.8 Erectile disorder, generalized, mild F52.21
== END 2024-06-18 12:18 | disposition home or self-care (01) ==
LOC: HO.HUSH 11:36
PROVIDERS: PCP Internal Medicine; Visit Provider Urology
DX: R97.20 Elevated prostate specific antigen [PSA] (principal); R79.89 Other specified abnormal findings of blood chemistry; N40.1 Benign prostatic hyperplasia with lower urinary tract symptoms; N13.8 Other obstructive and reflux uropathy; F52.21 Male erectile disorder
CPT/HCPCS: 99213

== ENCOUNTER → 2024-06-18 11:35 | Outpatient (BNVA) | payer BC, SELFPAY | PROVIDERS: PCP Internal Medicine; Visit Provider Urology ==

== ENCOUNTER 2024-07-17 14:59 | Outpatient (AMB) | payer BC, SELFPAY ==
[2024-07-17 15:01] VITALS: BP 144/80; PULSE 95; O2SAT 95; BMI 39.9
--- NOTE | 2024-07-17 15:01 | MHC.PC.OV ---
Vital Signs 07/17/24 15:01 Height 6 ft Weight 294 lb 4 oz BMI 39.9 BP 144/80 H Blood Pressure Location Rt brachial Position Sitting Pulse 95 Pulse Source Pulse Oximeter Pulse Oximetry (%) 95 Oxygen Delivery Method Room Air Intake Visit Reasons: BP Check/Follow up Anxiety~ Allergies Environmental Allergy (Mild, Uncoded 06/18/24 11:39) allergy symptoms Medication List - Last Reconciled 07/17/24 by Aidee Walker MD [Blood pressure monitor As directed] buspirone 7.5 mg PO .Q evening cholecalciferol (vitamin D3) 25 mcg PO DAILY 90 days omeprazole 20 mg PO DAILY sennosides (Natural Senna Laxative) 17.2 mg (2 x 8.6 mg) PO BEDTIME sildenafil 100 mg PO ONCE PRN 30 days tadalafil 10 mg PO DAILY 90 days testosterone 2 pumps topical DAILY 28 days Tobacco use date assessed: 07/17/24 Dental Screening Dental Screen Date: 07/17/24 Did you have a dental visit in the last 12 months?: Yes Did you have a dental problem in the last 6 months where you did not have access to dental care?: No Was dental information given to patient?: Patient has dentist HPI BP Check/Follow up Anxiety~ HPI Details Patient is a 54-year-old gentleman came in today for his follow-up appointment Last time seen was March of this year Patient was found to have severe sleep apnea He said that when he went in for sleep study 2nd time they try to fit him with a mask but he could not breathe I am repeating the CPAP titration study His blood pressure continued to be elevated I am starting him on losartan 25 mg patient is to continue monitoring blood pressure at home and give me the readings in 7 days Need to lose weight, patient is aware Patient is also prediabetic, Lab order placed to be done fasting in September before visit Anxiety stable patient has not taken buspirone [facility] Medical History Sleep apnea COVID-19 vaccine series completed Difficulty urinating Obesity Lung nodule < 6cm on CT Erectile disorder, generalized, mild Lipid disorder Pre-diabetes Tobacco abuse Surgical History Hx of colonoscopy History of esophagogastroduodenoscopy (EGD) History of ankle surgery History of adenoidectomy Family History Father Bipolar disorder Alzheimer's disease, early onset Mother Breast cancer Fibromyalgia Maternal Grandfather No problems noted. Maternal Grandmother Type 2 diabetes mellitus Paternal Grandfather Pancreatic cancer Paternal Grandmother Lung cancer Smoker Sister No problems noted. Sister No problems noted. Son No problems noted. Other Mental health disorder Substance abuse Social History Household Members: Spouse Household Members Other:: and son- Housing: House Are you a primary medicare nurse to a significant other at home: No Do you presently have visiting nurse or other home services: No Alcohol intake: never Patient Tobacco Use Status: Current everyday Tobacco user Tobacco use type: Cigarette Cigarette Packs Per Day: 0.5 Cigarettes Per Day: 15 e-Cigarette/Vaping Use: Never Used Second Hand Smoke Exposure: No service: No Current occupational status: employed and retired Current occupation: Retired - [employer] Cognitive needs: No Hearing needs: No Vision needs: No Questionnaire PHQ-9 Over the last 2 weeks, how often have you been bothered by any of the following problems? 1. Little interest or pleasure in doing things: not at all 2. Feeling down, depressed, or hopeless: not at all 3. Trouble falling or staying asleep, or sleeping too much: nearly every day 4. Feeling tired or having little energy: more than half the days 5. Poor appetite or overeating: not at all 6. Feeling bad about yourself - or that you are a failure or have let yourself or your family down: not at all 7. Trouble concentrating on things, such as reading the newspaper or watching television: not at all 8. Moving or speaking so slowly that other people could have noticed. Or the opposite - being so fidgety or restless that you have been moving around a lot more than usual: not at all 9. Thoughts that you would be better off or of hurting yourself in some way: not at all Total score: 5 Depression Screening Interpretation: Negative Depression Screening Done: Yes 59321 - PHQ-9 Billing: Yes Source: Developed by Drs. Denny Ocampo, Manda Ankit Morrow and colleagues, with an educational argelia from [employer]. Thrive Questionnaire Date Thrive assessed: 07/17/24 I am a: Patient What is your living situation today?: I have a steady place to live Within the past 12 months, did the food you bought not last and you didn't have the money to get more?: I choose not to answer this question Within the past 12 months, did you worry whether your food would run out before you got money to buy more?: I choose not to answer this question Do you have trouble paying for medicines?: I choose not to answer this question Do you have trouble getting transportation to medical appointments?: I choose not to answer this question Do you have trouble paying your heating and electricity bill?: I choose not to answer this question Do you have trouble taking care of your child, family member or friend?: I choose not to answer this question Do you have trouble with day-to-day activities such as bathing, preparing meals, shopping, managing finances, etc.?: I choose not to answer this question Are you currently unemployed and looking for a job?: I choose not to answer this question Are you interested in more education?: I choose not to answer this question Please select the resources that you would like help with: None Currently or been in a relationship where the following occur: I choose not to answer THRIVE Score: 0 AUDIT C Alcohol Use Questionnaire (AUDIT-C) 1. How often do you have a drink containing alcohol?: Never 3. How often do you have six or more drinks on one occasion?: Never Total Score: 0 Score Reviewed/Action Taken: Yes JASON-7 AMB Questionnaire JASON-7 Date JASON - 7 assessed: 07/17/24 Feeling nervous, anxious, or on edge: 1 = Several days Not being able to stop or control worryin = Several days Worrying too much about different things: 1 = Several days Trouble relaxin = More than half the days Being so restless that it is hard to sit still: 1 = Several days Becoming easily annoyed or irritable: 1 = Several days Feeling afraid as if something awful might happen: 0 = Not at all Total JASON-7 score (0-4 normal; 5-9 mild; 10-14 moderate; 15-21 severe): 7 Source: Developed by Drs. Denny Ocampo, Manda Morales, Ankit Wadsworth and colleagues, with an educational argelia from [employer]. JASON-7 Assessment Billing JASON-7 Assessment Tool: JASON-7 Assessment 33302 Review of Systems Const Denies chills and Denies fever(s) ENT Denies epistaxis and Denies nasal discharge Card Denies chest pain Resp Denies chest congestion, Denies cough and Denies hemoptysis GI Denies diarrhea and Denies nausea Skin/Breast Denies rash Neuro Reports no additional complaints Psych Reports no additional complaints Endo Reports no additional complaints Physical exam (Primary Care) Vital Signs: Last Vital Signs Pulse 95 07/17/24 15:01 BP 144/80 H 07/17/24 15:01 Pulse Ox 95 07/17/24 15:01 Oxygen Delivery Method Room Air 07/17/24 15:01 BMI result Body Mass Index 39.9 Tobacco/Smoking Status: Tobacco use Status Tobacco use date assessed 07/17/24 07/17/24 15:04 Patient Tobacco Use Status Current everyday Tobacco 07/17/24 15:04 Tobacco use type Cigarette 07/17/24 15:04 e-Cigarette/Vaping Use Never Used 07/17/24 15:04 PHQ-9: PHQ-9 Score PHQ-9: Total score 5 07/17/24 15:12 Depression Screening Interpretation: Negative Thrive Assessment: Date of Thrive Assessment Date Thrive assessed 07/17/24 07/17/24 15:04 Currently or been in a relationship where the following occur: I choose not to answer Const General: cooperative, comfortable and no acute distress Orientation/consciousness: patient oriented x3 HENNY Head: Yes normocephalic Eyes General: appearance normal, both eyes and all related structures Neck Neck: Yes supple Resp Effort & Inspection: normal respiratory effort, no cough and no stridor Cardio Rhythm: regular rhythm Heart sounds: S1 normal heart sound present and S2 normal heart sound present Skin General skin exam: turgor normal Neuro General: patient oriented x3, tone normal and moves all extremities Extrem Right lower extremity: no edema Left lower extremity: no edema Coding Level of Care Code Est Pt Level 4 (51593) Diagnoses Hypertension, essential I10 Obstructive sleep apnea on CPAP G47.33 Pre-diabetes R73.03 Chronic GERD K21.9 Class 2 severe obesity due to excess calories with serious comorbidity and body mass index (BMI) of 39.0 to 39.9 in adult E66.812; E66.01; Z68.39 Obesity classification: adult class 2 (BMI 35 - 39.9) Serious obesity comorbidity presence: with serious comorbidity Body mass index: BMI 39.0-39.9 Erectile dysfunction, unspecified erectile dysfunction type N52.9 Erectile dysfunction type: unspecified Elevated PSA R97.20 Vitamin D deficiency E55.9 Additional Codes JASON-7 Assessment Billing - JASON-7 Assessment Tool: JASON-7 Assessment 46638 ([id number]) Assessment & Plan Assessment & Plan (1) Hypertension, essential: Code(s): I10 - Essential (primary) hypertension Category: Medical (2) Obstructive sleep apnea on CPAP: Code(s): G47.33 - Obstructive sleep apnea (adult) (pediatric) Category: Medical (3) Pre-diabetes: Code(s): R73.03 - Prediabetes Category: Medical (4) Chronic GERD: Code(s): K21.9 - Gastro-esophageal reflux disease without esophagitis Category: Medical (5) Obesity due to excess calories: Code(s): E66.09 - Other obesity due to excess calories Category: Medical Qualifiers: Obesity classification: adult class 2 (BMI 35 - 39.9) Serious obesity comorbidity presence: with serious comorbidity Body mass index: BMI 39.0-39.9 Qualified Code(s): E66.812 - Obesity, class 2; E66.01 - Morbid (severe) obesity due to excess calories; Z68.39 - Body mass index [BMI] 39.0-39.9, adult (6) Erectile dysfunction: Code(s): N52.9 - Male erectile dysfunction, unspecified Category: Medical Qualifiers: Erectile dysfunction type: unspecified Qualified Code(s): N52.9 - Male erectile dysfunction, unspecified (7) Elevated PSA: Code(s): R97.20 - Elevated prostate specific antigen [PSA] Category: Medical (8) Vitamin D deficiency: Code(s): E55.9 - Vitamin D deficiency, unspecified Category: Medical Plan Patient is a 54-year-old gentleman came in today for his follow-up appointment Last time seen was March of this year Patient was found to have severe sleep apnea He said that when he went in for sleep study 2nd time they try to fit him with a mask but he could not breathe I am repeating the CPAP titration study His blood pressure continued to be elevated I am starting him on losartan 25 mg patient is to continue monitoring blood pressure at home and give me the readings in 7 days Need to lose weight, patient is aware Patient is also prediabetic, Lab order placed to be done fasting in September before visit Anxiety stable patient has not taken buspirone Patient is established with Urology for erectile dysfunction and elevated PSA level Orders: Orders TSH reflex Free T4 Today E55.9 - Vitamin D deficiency, unspecified, E66.09 - Other obesity due to excess calories, G47.33 - Obstructive sleep apnea (adult) (pediatric), I10 - Essential (primary) hypertension, K21.9 - Gastro-esophageal reflux disease without esophagitis, N52.9 - Male erectile dysfunction, unspecified, R73.03 - Prediabetes, R97.20 - Elevated prostate specific antigen [PSA] Prostate Specific Antigen Today E55.9 - Vitamin D deficiency, unspecified, E66.09 - Other obesity due to excess calories, G47.33 - Obstructive sleep apnea (adult) (pediatric), I10 - Essential (primary) hypertension, K21.9 - Gastro-esophageal reflux disease without esophagitis, N52.9 - Male erectile dysfunction, unspecified, R73.03 - Prediabetes, R97.20 - Elevated prostate specific antigen [PSA] RT PSG in-lab sleep titration Today G47.33 - Obstructive sleep apnea (adult) (pediatric) Complete Blood Count Auto Diff Today E55.9 - Vitamin D deficiency, unspecified, E66.09 - Other obesity due to excess calories, G47.33 - Obstructive sleep apnea (adult) (pediatric), I10 - Essential (primary) hypertension, K21.9 - Gastro-esophageal reflux disease without esophagitis, N52.9 - Male erectile dysfunction, unspecified, R73.03 - Prediabetes, R97.20 - Elevated prostate specific antigen [PSA] Comprehensive [place]. Panel Fast Today E55.9 - Vitamin D deficiency, unspecified, E66.09 - Other obesity due to excess calories, G47.33 - Obstructive sleep apnea (adult) (pediatric), I10 - Essential (primary) hypertension, K21.9 - Gastro-esophageal reflux disease without esophagitis, N52.9 - Male erectile dysfunction, unspecified, R73.03 - Prediabetes, R97.20 - Elevated prostate specific antigen [PSA] Lipid Panel Today E55.9 - Vitamin D deficiency, unspecified, E66.09 - Other obesity due to excess calories, G47.33 - Obstructive sleep apnea (adult) (pediatric), I10 - Essential (primary) hypertension, K21.9 - Gastro-esophageal reflux disease without esophagitis, N52.9 - Male erectile dysfunction, unspecified, R73.03 - Prediabetes, R97.20 - Elevated prostate specific antigen [PSA] Hemoglobin A1c Today E55.9 - Vitamin D deficiency, unspecified, E66.09 - Other obesity due to excess calories, G47.33 - Obstructive sleep apnea (adult) (pediatric), I10 - Essential (primary) hypertension, K21.9 - Gastro-esophageal reflux disease without esophagitis, N52.9 - Male erectile dysfunction, unspecified, R73.03 - Prediabetes, R97.20 - Elevated prostate specific antigen [PSA] Medications: New losartan 25 mg PO DAILY 30 tabs 0RF Discontinued buspirone Discontinued Reason: Doctor's Order 7.5 mg PO .Q evening 90 tabs 0RF
== END 2024-07-17 16:02 | disposition home or self-care (01) ==
PROVIDERS: PCP Internal Medicine; Visit Provider Internal Medicine
DX: I10 Essential (primary) hypertension (principal); E66.812 Obesity, class 2; Z68.39 Body mass index [BMI] 39.0-39.9, adult; G47.33 Obstructive sleep apnea (adult) (pediatric); R73.03 Prediabetes; K21.9 Gastro-esophageal reflux disease without esophagitis; N52.9 Male erectile dysfunction, unspecified; R97.20 Elevated prostate specific antigen [PSA]; E55.9 Vitamin D deficiency, unspecified

== ENCOUNTER → 2024-07-17 14:59 | Outpatient (BNVA) | payer BC, SELFPAY | PROVIDERS: PCP Internal Medicine; Visit Provider Internal Medicine | DX: I10 Essential (primary) hypertension (principal); G47.33 Obstructive sleep apnea (adult) (pediatric); R73.03 Prediabetes; K21.9 Gastro-esophageal reflux disease without esophagitis; E66.09 Other obesity due to excess calories; Z68.39 Body mass index [BMI] 39.0-39.9, adult; N52.9 Male erectile dysfunction, unspecified; R97.20 Elevated prostate specific antigen [PSA]; E55.9 Vitamin D deficiency, unspecified | CPT/HCPCS: 96127 ==

== ENCOUNTER → 2024-08-12 22:12 | Outpatient (BNV) | payer BC, SELFPAY | PROVIDERS: PCP Internal Medicine; Visit Provider Internal Medicine | DX: G47.33 Obstructive sleep apnea (adult) (pediatric) (principal) | CPT/HCPCS: 95811 ==

== ENCOUNTER → 2024-08-12 22:26 | Outpatient (REF) | payer BC, SELFPAY | LOC: HO.SL 22:26 | PROVIDERS: PCP Internal Medicine; Visit Provider Internal Medicine | DX: G47.33 Obstructive sleep apnea (adult) (pediatric) (principal) | CPT/HCPCS: 95811 ==

== ENCOUNTER 2024-09-25 15:05 | Outpatient (AMB) | payer BC, SELFPAY ==
[2024-09-25 15:11] VITALS: BP 110/62; PULSE 90; O2SAT 96; BMI 40.7
--- NOTE | 2024-09-25 15:11 | A.OFFPC_ITS ---
Vital Signs 09/25/24 15:11 Height 6 ft Weight 300 lb 6 oz BMI 40.7 BP 110/62 Blood Pressure Location Rt brachial Position Sitting Pulse 90 Pulse Source Pulse Oximeter Pulse Oximetry (%) 96 Oxygen Delivery Method Room Air Intake Visit Reasons: follow up BP Allergies Environmental Allergy (Mild, Uncoded 06/18/24 11:39) allergy symptoms Medication List - Last Reconciled 09/25/24 by Aidee Walker MD [Blood pressure monitor As directed] cholecalciferol (vitamin D3) 25 mcg PO DAILY 90 days losartan 25 mg PO DAILY omeprazole 20 mg PO DAILY sennosides (Natural Senna Laxative) 17.2 mg (2 x 8.6 mg) PO BEDTIME sildenafil 100 mg PO ONCE PRN 30 days tadalafil 10 mg PO DAILY 90 days testosterone 2 pumps topical DAILY 28 days Tobacco use date assessed: 09/25/24 Dental Screening Dental Screen Date: 09/25/24 Did you have a dental visit in the last 12 months?: Yes Did you have a dental problem in the last 6 months where you did not have access to dental care?: No Was dental information given to patient?: Patient has dentist HPI follow up BP HPI Details History - bulleted - The patient is a 54-year-old male pres enting with prescription management and follow-up for sleep disorders and hypertension. - Obstructive Sleep Apnea: Diagnosed as mild, with history of 9% snoring and noncompliance to CPAP in past. Recommended weight loss and side-sleeping to manage. - Periodic Limb Movement Disorder: Exper iences leg muscle twitching that interrupts sleep. Noted exacerbation with high carbohydrate or sugar intake. - Essential Hypertension: Blood pressure currently well controlled on losartan. No reported side effects from medication. - Prediabetes: Identified as a risk, pos sibly impacted by diet and sleep pattern. - Prostate-related symptoms: Management through Urology including testosterone therapy Problem List - Essential Hypertension - Obstructive Sleep Apnea, Mild - Prediabetes - Periodic Limb Movement Disorder - Noncompliance with Continuous Positive Airway Pressure (CPAP) therapy in the past - Chronic Leg Movement Disorder - Prostate-related symptom - GERD Medications - Losartan for hypertension - omeprazole for GERD - Gabapentin previously used for nerve d amage and sleep-related leg movement Diagnostic results - Obstructive Sleep Apnea diagnosis with mild severity, 9% snoring during study. [facility] Urology [facility] Review of Systems - Neurological: Reports leg muscle twitc adrianna interrupting sleep. - Endocrine: Denies consistent use of te stosterone gel due to concerns. - General: Feels somewhat better in the morning since taking losartan. No fever no chills neurological: No headaches no dizziness ear nose throat: No sore throat no hearing difficulty no ear pain musculoskeletal: Usual aches and pains nothing new cardiovascular: No syncope, no chest pain, no palpitations gastrointestinal: No nausea vomiting or diarrhea endocrine: No polyuria polydipsia no heat intolerance genitourinary: No dysuria skin: No new complaints Physical Exam general: No acute distress HEENT: No acute findings neck: Supple respiratory system: Able to talk in full sentences, no audible wheeze no stridor cardiovascular: S1-S2 gastrointestinal: No pain extremities: No new findings DIRECTOR MACHINE: Alert awake oriented x3 motor sensory intact skin: Normal turgor Patient Instructions - Continue losartan as prescribed for bl ood pressure management. - Initiate gabapentin at night, start wi th one capsule and adjust as needed. - Monitor blood pressure at home, especi ally when adjusting medications. - Pursue weight loss to aid in managemen t of obstructive sleep apnea. - Schedule and complete necessary lab wo rk as soon as possible. - Practice side-sleeping to reduce sleep apnea symptoms. - Adhere to a consistent diet low in car bohydrates and sugars to manage prediabetes and leg movement symptoms. - Continue monitoring and discussing pro state-related symptoms and medication effects. Patient has a follow-up appointment scheduled [facility] Medical History Sleep apnea COVID-19 vaccine series completed Difficulty urinating Obesity Lung nodule < 6cm on CT Erectile disorder, generalized, mild Lipid disorder Pre-diabetes Tobacco abuse Surgical History Hx of colonoscopy History of esophagogastroduodenoscopy (EGD) History of ankle surgery History of adenoidectomy Family History Father Bipolar disorder Alzheimer's disease, early onset Mother Breast cancer Fibromyalgia Maternal Grandfather No problems noted. Maternal Grandmother Type 2 diabetes mellitus Paternal Grandfather Pancreatic cancer Paternal Grandmother Lung cancer Smoker Sister No problems noted. Sister No problems noted. Son No problems noted. Other Mental health disorder Substance abuse Social History Household Members: Spouse Household Members Other:: and son- Housing: House Are you a primary home care attendant to a significant other at home: No Do you presently have visiting nurse or other home services: No Alcohol intake: never Patient Tobacco Use Status: Current everyday Tobacco user Tobacco use type: Cigarette Cigarette Packs Per Day: 0.5 Cigarettes Per Day: 15 e-Cigarette/Vaping Use: Never Used Second Hand Smoke Exposure: No service: No Current occupational status: employed and retired Current occupation: Retired - [employer] Cognitive needs: No Hearing needs: No Vision needs: No Questionnaire Thrive Questionnaire Date Thrive assessed: 09/25/24 I am a: Patient What is your living situation today?: I have a steady place to live Within the past 12 months, did the food you bought not last and you didn't have the money to get more?: I choose not to answer this question Within the past 12 months, did you worry whether your food would run out before you got money to buy more?: I choose not to answer this question Do you have trouble paying for medicines?: I choose not to answer this question Do you have trouble getting transportation to medical appointments?: I choose not to answer this question Do you have trouble paying your heating and electricity bill?: I choose not to answer this question Do you have trouble taking care of your child, family member or friend?: I choose not to answer this question Do you have trouble with day-to-day activities such as bathing, preparing meals, shopping, managing finances, etc.?: I choose not to answer this question Are you currently unemployed and looking for a job?: I choose not to answer this question Are you interested in more education?: I choose not to answer this question Please select the resources that you would like help with: None Currently or been in a relationship where the following occur: I choose not to answer THRIVE Score: 0 AUDIT C Alcohol Use Questionnaire (AUDIT-C) 1. How often do you have a drink containing alcohol?: Never 3. How often do you have six or more drinks on one occasion?: Never Total Score: 0 Score Reviewed/Action Taken: Yes JASON-7 AMB Questionnaire JASON-7 Date JASON - 7 assessed: 07/17/24 Source: Developed by DrsJhoana Ocampo, Manda Morales, Ankit Wadsworth and colleagues, with an educational argelia from [employer]. Physical exam (Primary Care) Vital Signs: Last Vital Signs Pulse 90 09/25/24 15:11 BP 110/62 09/25/24 15:11 Pulse Ox 96 09/25/24 15:11 Oxygen Delivery Method Room Air 09/25/24 15:11 BMI result Body Mass Index 40.7 Tobacco/Smoking Status: Tobacco use Status Tobacco use date assessed 09/25/24 09/25/24 15:12 Patient Tobacco Use Status Current everyday Tobacco 09/25/24 15:12 Tobacco use type Cigarette 09/25/24 15:12 e-Cigarette/Vaping Use Never Used 09/25/24 15:12 Thrive Assessment: Date of Thrive Assessment Date Thrive assessed 09/25/24 09/25/24 15:12 Currently or been in a relationship where the following occur: I choose not to answer Coding Level of Care Code Est Pt Level 4 (69668) Diagnoses Hypertension, essential I10 Nocturnal leg movements R25.8 Difficulty sleeping G47.9 LFT elevation R79.89 Morbid obesity due to excess calories E66.01 Elevated PSA R97.20 Erectile dysfunction, unspecified erectile dysfunction type N52.9 Erectile dysfunction type: unspecified Lipid disorder E78.9 Chronic GERD K21.9 Pre-diabetes R73.03 Mild sleep apnea G47.30 Assessment & Plan Assessment & Plan (1) Hypertension, essential: Code(s): I10 - Essential (primary) hypertension Category: Medical (2) Nocturnal leg movements: Code(s): R25.8 - Other abnormal involuntary movements Category: Medical (3) Difficulty sleeping: Code(s): G47.9 - Sleep disorder, unspecified Category: Medical (4) LFT elevation: Code(s): R79.89 - Other specified abnormal findings of blood chemistry Category: Medical (5) Morbid obesity due to excess calories: Code(s): E66.01 - Morbid (severe) obesity due to excess calories Category: Medical (6) Elevated PSA: Code(s): R97.20 - Elevated prostate specific antigen [PSA] Category: Medical (7) Erectile dysfunction: Code(s): N52.9 - Male erectile dysfunction, unspecified Category: Medical Qualifiers: Erectile dysfunction type: unspecified Qualified Code(s): N52.9 - Male erectile dysfunction, unspecified (8) Lipid disorder: Code(s): E78.9 - Disorder of lipoprotein metabolism, unspecified Category: Medical (9) Chronic GERD: Code(s): K21.9 - Gastro-esophageal reflux disease without esophagitis Category: Medical (10) Pre-diabetes: Code(s): R73.03 - Prediabetes Category: Medical (11) Mild sleep apnea: Comment: Noncompliance with CPAP in the past Code(s): G47.30 - Sleep apnea, unspecified Category: Medical Plan History - bulleted - The patient is a 54-year-old male presenting with prescription management and follow-up for sleep disorders and hypertension. - Obstructive Sleep Apnea: Diagnosed as mild, with history of 9% snoring and noncompliance to CPAP in past. Recommended weight loss and side-sleeping to manage. - Periodic Limb Movement Disorder: Experiences leg muscle twitching that interrupts sleep. Noted exacerbation with high carbohydrate or sugar intake. - Essential Hypertension: Blood pressure currently well controlled on losartan. No reported side effects from medication. - Prediabetes: Identified as a risk, possibly impacted by diet and sleep pattern. - Prostate-related symptoms: Management through Urology including testosterone therapy Problem List - Essential Hypertension - Obstructive Sleep Apnea, Mild - Prediabetes - Periodic Limb Movement Disorder - Noncompliance with Continuous Positive Airway Pressure (CPAP) therapy in the past - Chronic Leg Movement Disorder - Prostate-related symptom - GERD Medications - Losartan for hypertension - omeprazole for GERD - Gabapentin previously used for nerve damage and sleep-related leg movement Diagnostic results - Obstructive Sleep Apnea diagnosis with mild severity, 9% snoring during study. [facility] U[facility] Review of Systems - Neurological: Reports leg muscle twitching interrupting sleep. - Endocrine: Denies consistent use of testosterone gel due to concerns. - General: Feels somewhat better in the morning since taking losartan. No fever no chills neurological: No headaches no dizziness ear nose throat: No sore throat no hearing difficulty no ear pain musculoskeletal: Usual aches and pains nothing new cardiovascular: No syncope, no chest pain, no palpitations gastrointestinal: No nausea vomiting or diarrhea endocrine: No polyuria polydipsia no heat intolerance genitourinary: No dysuria skin: No new complaints Physical Exam general: No acute distress HEENT: No acute findings neck: Supple respiratory system: Able to talk in full sentences, no audible wheeze no stridor cardiovascular: S1-S2 gastrointestinal: No pain extremities: No new findings DIRECTOR MACHINE: Alert awake oriented x3 motor sensory intact skin: Normal turgor Patient Instructions - Continue losartan as prescribed for blood pressure management. - Initiate gabapentin at night, start with one capsule and adjust as needed. - Monitor blood pressure at home, especially when adjusting medications. - Pursue weight loss to aid in management of obstructive sleep apnea. - Schedule and complete necessary lab work as soon as possible. - Practice side-sleeping to reduce sleep apnea symptoms. - Adhere to a consistent diet low in carbohydrates and sugars to manage prediabetes and leg movement symptoms. - Continue monitoring and discussing prostate-related symptoms and medication effects. Patient has a follow-up appointment scheduled Medications: New gabapentin 100 mg PO BEDTIME 90 caps 1RF
== END 2024-09-25 15:49 | disposition home or self-care (01) ==
PROVIDERS: PCP Internal Medicine; Visit Provider Internal Medicine
DX: I10 Essential (primary) hypertension (principal); E66.01 Morbid (severe) obesity due to excess calories; R25.8 Other abnormal involuntary movements; Z68.41 Body mass index [BMI] 40.0-44.9, adult; G47.9 Sleep disorder, unspecified; R97.20 Elevated prostate specific antigen [PSA]; N52.9 Male erectile dysfunction, unspecified; E78.9 Disorder of lipoprotein metabolism, unspecified; K21.9 Gastro-esophageal reflux disease without esophagitis; R73.03 Prediabetes; G47.30 Sleep apnea, unspecified

== ENCOUNTER 2025-02-03 10:31 | Outpatient (REF) | payer BC, SELFPAY ==
--- OUTSIDE RECORDS SUMMARY | 2025-02-03 12:23 | XMS_ITS | Clinical Summary ---
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 Name Role Phone Unavailable Primary Care Provider Unavailabl e Social History Tobacco Use Types Packs/Day Years Used Date Smoking Tobacco: Never Assessed Sex and Gender Information Value Date Recorded Sex Assigned at Not on file Legal Sex Male 7:22 PM EDT Gender Identity Not on file Sexual Orientation Not on file Plan of Treatment Health Maintenance Due Date Last Done Comments Hepatitis C Virus Screening 1970 HIV Screening 1983 DTaP/Tdap/Td Vaccines (1 - Tdap) 1989 Hepatitis B Vaccines (1 of 3 - 19+ 3-dose series) 12/08 Pneumococcal Vaccines 50+ (1 of 1 - PCV) 01/05/2020 Zoster (Shingles) Vaccine (1 of 2) 01/05/2020 COVID-19 Vaccine (1 - 2023- season) 2024
--- OUTSIDE RECORDS SUMMARY | 2025-02-03 12:23 | XMS_ITS ---
Author Name [facility] Organization Unknown Care Team Organization Name Specialty Phone Email Start Date End [facility] 08/23/2024
--- OUTSIDE RECORDS SUMMARY | 2025-02-03 12:23 | XMS_ITS | Encounter Summary ---
Author Organization [facility] Address [address] [place] [address] Care Team Providers Care Senior Living Sales Counselor Name Role Phone Unavailable Primary Care Provider Unavailabl e Encounter Details Date Type Department Care Team (Late st Contact Info) Description 04/27/2020 Lab Requisition [facility] [address] [place] [phone] Ollie Chen PA-C [address] [place] [id number] Encounter for laboratory testing for COVID-19 virus Social History Tobacco Use Types Packs/Day Years Used Date Smoking Tobacco: Never Assessed Sex and Gender Information Value Date Recorded Sex Assigned at Not on file Legal Sex Male 7:22 PM EDT Gender Identity Not on file Sexual Orientation Not on file documented as of this encounter Plan of Treatment Not on file documented as of this encounter Procedures Procedure Name Priority Date/Time Associated Diagnosis Comments (REPORT) SARS COV-2 RNA (COVID-19), QUAL Routine 04/27/2020 8:57 AM EDT Encounter for laboratory testing for COVID-19 virus [ICD-10-CM] documented in this encounter Results * SARS CoV-2 RNA (COVID-19), Qual (04/27/2020 8:57 AM EDT) Pathologist [facility] SARS CoV 2 RNA, Qual NOT DETECTED NOT DETECTED 04/28/2020 4:00 PM EDT [facility] Comment: A Not Detected (negative) test result for this test means that SARS- CoV-2 RNA was not present in the specimen above the limit of detection. A negative result does not rule out the possibility of COVID-19 and should not be used as the sole basis for treatment or patient management decisions. ??If COVID-19 is still suspected, based on exposure history together with other clinical findings, re-testing should be considered in consultation with public health authorities. Laboratory test results should always be considered in the context of clinical observations and epidemiological data in making a final diagnosis and patient management decisions. Please review the Fact Sheets and FDA authorized labeling available for health care providers and patients using the following websites: https://www.[employer]/home/Covid-19/HCP/NAAT/fact-sheet2 https://www.[employer]/home/Covid-19/Patients/NAAT/ fact-sheet2 This test has been authorized by the FDA under an Emergency Use Authorization (EUA) for use by authorized laboratories. Due to the current public health emergency, [employer] is receiving a high volume of samples from a wide variety of swabs and media for COVID-19 testing. In order to serve patients during this public health crisis, samples from appropriate clinical sources are being tested. Negative test results derived from specimens received in non-commercially manufactured viral collection and transport media, or in media and sample collection kits not yet authorized by FDA for COVID-19 testing should be cautiously evaluated and the patient potentially subjected to extra precautions such as additional clinical monitoring, including collection of an additional specimen. Methodology: ??Nucleic Acid Amplification Test (NAAT) includes PCR or TMA ?? Additional information about COVID-19 can be found at the [employer] website: www.[employer]/Covid19. Microbiology Nasopharyngeal swab / Unknown 04/27/2020 8:57 AM EDT 04/27/2020 8:57 AM EDT Narrative [facility] [[email or web address]] [facility] - 04/28/2020 4:00 PM EDT Performing Organization Information: ?Site ID: [id number] ?Name: [employer] ?Address: [address] [place] [address] [address] [address] ?Director: MAXIM POLO MD [facility] at [facility] License number [id number] Ollie Chen PA-C BODY FLUIDS AND STOOLS OR DERABLES Final Result [facility] documented in this encounter Visit Diagnoses Diagnosis Encounter for laboratory testing for COVID-19 virus documented in this encounter
--- OUTSIDE RECORDS SUMMARY | 2025-02-03 12:23 | XMS_ITS | Encounter Summary ---
Author Organization [facility] Address [address] [place] [address] Care Team Providers Care Childcare Provider Name Role Phone Unavailable Primary Care Provider Unavailabl e Encounter Details Date Type Department Care Team (Late st Contact Info) Description 07/13/2020 Lab Requisition [facility] [address] [place] [phone] Ollie Chen PA-C [address] [place] [phone] Encounter for laboratory testing for COVID-19 virus [...] (REPORT) SARS COV-2 RNA (COVID-19), QUAL Routine 07/13/2020 8:08 AM EDT Encounter for laboratory testing for COVID-19 virus [ICD-10-CM] documented in this encounter Results * SARS CoV-2 RNA (COVID-19), Qual (07/13/2020 8:08 AM EDT) Pathologist [facility] SARS CoV 2 RNA, Qual NOT DETECTED NOT DETECTED 07/14/2020 10:00 PM EDT [facility] Comment: A Not Detected (negative) test result for this test means that SARS-CoV-2 RNA was not present in the specimen above the limit of detection. A negative result does not rule out the possibility of COVID-19 and should not be used as the sole basis for treatment or patient management decisions. If COVID-19 is still suspected, based on exposure history together with other clinical findings, re-testing should be considered in consultation with public health authorities. Laboratory test results should always be considered in the context of clinical observations and epidemiological data in making a final diagnosis and patient management decisions. REFERENCE RANGE: ??NOT DETECTED This patient specimen was tested using an FDA EUA pooling method. Negative results from pooled testing should not be treated as definitive. ??If the patient's clinical signs and symptoms are inconsistent with a negative result or results are necessary for patient management, then the patient should be considered for individual testing. Specimens with low viral loads may not be detected in sample pools due to the decreased sensitivity of pooled testing. Please review the Fact Sheets and FDA authorized labeling available for health care providers and patients using the following websites: https://www.[employer]/home/Covid-19/HCP/QuestLDTP/ fact-sheet https://www.[employer].com/home/Covid-19/Patients/QuestLDTP/ fact-sheet.html This test has been authorized by the FDA under an Emergency Use Authorization (EUA) for use by authorized laboratories. Due to the current public health emergency, [employer] is receiving a high volume of samples [...] about COVID-19 can be found at the [employer] website: www.[place].[employer].com/Covid19. Microbiology Nasopharyngeal swab / Unknown 07/13/2020 8:08 AM EDT 07/13/2020 8:08 AM EDT Narrative [facility] - 07/14/2020 10:00 PM EDT Performing Organization Information: ?Site ID: [id number] ?Name: [employer] ?Address: [address] [place] [address] [address] [address] ?Director: MAXIM POLO MD [facility] at [facility] License number [id number] Ollie Chen PA-C BODY FLUIDS AND STOOLS OR DERABLES Final Result Performing Organization Address City/State/[facility] de Phone Number [facility] documented in this encounter Visit Diagnoses Diagnosis Encounter for laboratory testing for COVID-19 virus documented in this encounter
--- OUTSIDE RECORDS SUMMARY | 2025-02-03 12:23 | XMS_ITS | Encounter Summary ---
Author Organization [facility] Address [address] [place] [address] Care Team Providers Care Personal Financial Representative Name Role Phone Unavailable Primary Care Provider Unavailabl e Encounter Details Date Type Department Care Team (Late st Contact Info) Description 06/08/2020 Lab Requisition [facility] [address] [place] [phone] Ollie Chen PA-C [address] [place] [phone] Encounter for laboratory testing for COVID-19 virus [...] (REPORT) SARS COV-2 RNA (COVID-19), QUAL Routine 06/08/2020 7:02 AM EDT Encounter for laboratory testing for COVID-19 virus [ICD-10-CM] documented in this encounter Results * SARS CoV-2 RNA (COVID-19), Qual (06/08/2020 7:02 AM EDT) Pathologist [facility] SARS CoV 2 RNA, Qual NOT DETECTED NOT DETECTED 06/09/2020 3:00 PM EDT [facility] Comment: A Not Detected (negative) [...] providers and patients using the following websites: https://www.[employer]/home/Covid-19/HCP/QuestLDTP/ fact-sheet https://www.[employer]/home/Covid-19/Patients/QuestLDTP/ fact-sheet.html This test has been authorized by the FDA under an Emergency Use Authorization (EUA) for use by authorized laboratories. Due to the current public health emergency, [employer] is receiving a high volume of samples [...] about COVID-19 can be found at the [employer] website: www.[employer]/Covid19. Microbiology Nasopharyngeal swab / Unknown 06/08/2020 7:02 AM EDT 06/08/2020 7:02 AM EDT [facility] - 06/09/2020 3:00 PM EDT Performing Organization Information: ?Site ID: [id number] ?Name: [employer] ?Address: [address] [place] [address] [address] [address] ?Director: MAXIM POLO MD [facility] at [facility] License number [id number] Ollie Chen PA-C BODY FLUIDS AND STOOLS OR DERABLES Final Result Performing Organization Address City/State/[facility] de Phone Number [facility] documented in this encounter Visit Diagnoses Diagnosis Encounter for laboratory testing for COVID-19 virus documented in this encounter
[2025-02-03 13:03] LABS: MANUAL DIFF FLAG NO
[2025-02-03 13:25] LABS: Basophils Percent Auto 0.6 % (0-2); Eosinophils Absolute Auto 0.2 X10*3/uL (0.0-0.4); Eosinophils Percent Auto 3.5 % (0-4); Hematocrit 46.6 % (42.0-52.0); Hemoglobin 15.9 g/dl (14.0-18.0); Imm Gran Abs Auto 0.02 X10*3/uL (0.00-0.03); Imm Gran Pct Auto 0.3 % (0.0-0.4); Lymphocytes Absolute Auto 2.1 X10*3/uL (1.2-4.9); Lymphocytes Percent Auto 29.9 % (20-40); Mean Corpuscular HGB Conc 34.1 g/dl (31.0-36.0); Mean Corpuscular Hemoglobin 30.9 pg (27.0-33.0); Mean Corpuscular Volume 90.5 fL (80.0-98.0); Mean Platelet Volume 10.2 fL (9.4-12.4); Monocytes Absolute Auto 0.4 X10*3/uL (0.1-1.2); Monocytes Percent Auto 5.1 % (2-11); Neutrophils Absolute Auto 4.2 x10*3/uL (2.0-8.3); Neutrophils Percent Auto 60.6 % (45-73); Platelet Count 198 X10*3/uL (160-400); Red Blood Count 5.15 X10*6/uL (4.60-5.80); Red Cell Distribution Width 12.4 % (11.0-16.0); White Blood Count 6.9 X10*3/uL (4.8-10.8)
[2025-02-03 13:30] LABS: Alanine Aminotransferase 86 U/L (0-40); Albumin Level 4.3 g/dL (3.5-5.0); Alkaline Phosphatase 61 U/L (39-117); Anion Gap 12 (12-20); Aspartate Amino Transferase 47 U/L (5-37); Bilirubin Total 0.6 mg/dL (0.0-1.0); Blood Urea Nitrogen 14 mg/dL (9-16); Calcium 8.9 mg/dL (8.4-10.2); Carbon Dioxide 24 mmol/L (22-29); Chloride 110 mmol/L (96-108); Cholesterol 224 mg/dL (<200); Estimated Glomerular Filt Rate > 60; Glucose Fasting 100 mg/dL (60-99); HDL Cholesterol 36 mg/dL (>40); LDL Cholesterol Calculated 118 mg/dL (<100); Potassium 4.3 mmol/L (3.3-5.1); Sodium 142 mmol/L (135-145); Total Protein 6.7 g/dL (6.5-8.0); Triglycerides 350 mg/dL (<150)
[2025-02-03 13:44] LABS: Prostate Specific Antigen 8.05 ng/mL (<0.05-4.0)
[2025-02-03 13:49] LABS: TSH reflex Free T4 1.16 uIU/mL (0.32-4.0)
[2025-02-03 14:09] LABS: Estimated Average Glucose 114 mg/dL; Hemoglobin A1C 158.0092 umol/L; Hemoglobin A1c % 5.6 % (<6.0); Total Hemoglobin (HGBA1C) 4252.6361 umol/L
[2025-02-06 13:44] LABS: Testosterone, Total 1649 ng/dL (250-1100)
== END 2025-02-03 10:32 | disposition home or self-care (01) ==
LOC: HO.HMGCLDS 10:31
PROVIDERS: PCP Internal Medicine; Referring Provider Urology; Visit Provider Internal Medicine
DX: R79.89 Other specified abnormal findings of blood chemistry (principal); R73.03 Prediabetes; K21.9 Gastro-esophageal reflux disease without esophagitis; E66.09 Other obesity due to excess calories; N52.9 Male erectile dysfunction, unspecified; R97.20 Elevated prostate specific antigen [PSA]; I10 Essential (primary) hypertension; E55.9 Vitamin D deficiency, unspecified; G47.33 Obstructive sleep apnea (adult) (pediatric); Z12.5 Encounter for screening for malignant neoplasm of prostate
CPT/HCPCS: 36415; 80053; 80061; 83036; 84153; 84403; 84443; 85025; 85027

== ENCOUNTER 2025-02-18 14:55 | Outpatient (AMB) | payer BC, SELFPAY ==
--- NOTE | 2025-02-18 14:56 | A.OFFVIS_ITS ---
Intake Visit Reasons: 8m/ labs Intake Note: Patient is present for 8M/LABS Urology Medication:SILDNAFIL,TADALAFIL,TESTOSTERONE Antibiotic Allergy:NONE Blood Thinner:NONE Online Activist Required: No Allergies Environmental Allergy (Mild, Uncoded 02/18/25 14:56) allergy symptoms HPI Comments Details: Fredo is a pleasant male. He is a patient of Dr. Walker. He is seen for the following urologic conditions - lower urinary tract symptoms - hypogonadism - erectile dysfunction Telemedicine Evaluation 15 min Consultation [employer] Refill testosterone prescription - 1 pump daily Prescription filled for combination tadalafil and sildenafil Terazosin completed Known high PSA Prostate biopsy March 2022 - normal MRI 12/02 Did not have sleep apnea on exam but did have significantly disrupted sleep 12/02 Prostate MRI for elevated PSA persistent - prior negative biopsy - 60 g prostate - no areas of suspicion Six-month follow-up labs Lower urinary tract symptoms Current visit is for - further evaluation of primarily obstructive symptoms. Current treatment includes - alpha-hanh - terazosin 5 mg Prior treatments include - none Prostate Symptom Score - 10/29 mild symptoms, bother 2 Symptoms include - 10/29 weak stream, symptoms improving Results from testing include - 03/30 Prostate Biopsy - inflammation Prior Prostate Score moderate PSA 12/25 3.0, 11/29 4.8, 01/28 5.1, 09/29 6.5, 02/28 7.3, 09/30 7.1, 06/01 7.3 Hypogonadism Continue clomiphene 50 mg every other day Testosterone is climbing 10/29 244, 01/27 380, 06/29 146, 01/28 283, 02/28 250 HBA1c 5.3 TG 227, 09/20 230, 12/02 T 330, 01/31 T 1650 Also noting response to daily tadalafil with sildenafil on demand He presents today for further evaluation of complaints regarding hypogonadism, Initial symptoms include erectile dysfunction Yes decreased libido Yes change in mood/depression Yes in muscle size/strength Yes increased fatigue/malaise Yes - tired all the time The onset of symptoms has been gradual Erectile status nocturnal erections do not, can have erection sufficient penetration but not maintain to orgasm. Associate conditions include chronic pain with opioid use No obstructive sleep apnea No CAD No diabetes No dyslipidemia No hypertension No obesity No stress - financial, family, employment No heavy alcohol or illicit drug use No He has been taking - JEREMY, tobacco Erectile dysfunction Daily tadalafil 10 mg On demand sildenafil 100mg variable effect May try 20mg tadalafil on demand PFSH Medical History Sleep apnea COVID-19 vaccine series completed Difficulty urinating Obesity Lung nodule < 6cm on CT Erectile disorder, generalized, mild Lipid disorder Pre-diabetes Tobacco abuse Surgical History Hx of colonoscopy History of esophagogastroduodenoscopy (EGD) History of ankle surgery History of adenoidectomy Family History Father Bipolar disorder Alzheimer's disease, early onset Mother Breast cancer Fibromyalgia Maternal Grandfather No problems noted. Maternal Grandmother Type 2 diabetes mellitus Paternal Grandfather Pancreatic cancer Paternal Grandmother Lung cancer Smoker Sister No problems noted. Sister No problems noted. Son No problems noted. Other Mental health disorder Substance abuse Social History Household Members: Spouse Household Members Other:: and son- Housing: House Are you a primary chronic care nurse to a significant other at home: No Do you presently have visiting nurse or other home services: No Alcohol intake: never Patient Tobacco Use Status: Current everyday Tobacco user Tobacco use type: Cigarette Cigarette Packs Per Day: 0.5 Cigarettes Per Day: 15 e-Cigarette/Vaping Use: Never Used Second Hand Smoke Exposure: No service: No Current occupational status: employed and retired Current occupation: Retired - [employer] Cognitive needs: No Hearing needs: No Vision needs: No Review of Systems Const All systems reviewed & are unremarkable except as noted in HPI and below Reports no additional complaints Resp Reports no additional complaints GI Reports no additional complaints Reports as per HPI Musc Reports no additional complaints Physical Exam Telemedicine evaluation Appropriate responses Regular breathing rate and rhythm HEENT Head: Yes normal to inspection Ears: hearing grossly normal bilaterally Eyes General: appearance normal, both eyes and all related structures Neck Neck: Yes normal visual inspection Chest Chest palpation & inspection: normal inspection of the chest Resp Effort & Inspection: normal respiratory effort and able to speak in complete sentences Telehealth Telehealth Telehealth Platform: [facility] Location of provider rendering services: practice address Location of patient: address on file Patient Identification confirmed using: Name, : Yes Telehealth method: video Patient verbally consented to treatment: Yes Patient verbally consented to billing insurance company: Yes Patient informed of any privacy concerns related to visit: Yes Minutes spent on Phone/Video with Pt.: 15 Assessment & Plan Assessment & Plan (1) Weak urinary stream: Code(s): R39.12 - Poor urinary stream Category: Medical (2) Erectile dysfunction: Code(s): N52.9 - Male erectile dysfunction, unspecified Category: Medical Qualifiers: Erectile dysfunction type: unspecified Qualified Code(s): N52.9 - Male erectile dysfunction, unspecified (3) Low testosterone: Code(s): R79.89 - Other specified abnormal findings of blood chemistry Category: Medical Plan reduce gel, 6m lab work Orders: Orders Complete Blood Count no Diff 6 Months R7 - Other specified abnormal findings of blood chemistry Testosterone, Total 6 Months R7. - Other specified abnormal findings of blood chemistry Prostate Specific Antigen 6 Months R7. - Other specified abnormal findings of blood chemistry Medications: Changed From testosterone apply 1 pump amount over max area of EACH upper arm and shoulder 2 pumps topical DAILY 28 days 75 grams 5RF R79.89 - Other specified abnormal findings of blood chemistry To testosterone apply 1 pump amount over max area daily - each bottle should last 8 weeks 1 pump topical DAILY 28 days 75 grams 2RF R79.89 - Other specified abnormal findings of blood chemistry From tadalafil 10 mg PO DAILY 90 days 90 tabs 1RF sexual activity N52.01 - Erectile dysfunction due to arterial insufficiency To tadalafil 5 mg PO DAILY 90 days 90 tabs 2RF sexual activity N52.01 - Erectile dysfunction due to arterial insufficiency Refilled sildenafil administer 60 minutes before intended activity 100 mg PO ONCE 30 days PRN 30 tabs 1RF sexual activity N52.9 - Male erectile dysfunction, unspecified Patient Instructions: This note is constructed using voice recognition software. While every effort has been made to ensure accuracy utility service worker errors may have been included. Imaging studies, laboratory and physical exam results were discussed and reviewed in detail. No major barriers to patient understanding were identified. An opportunity to ask questions regarding the treatment plan was provided. All questions were answered. The patient expressed understanding and agreement with the above treatment plan. The patient is aware they should contact our office by phone for worsening of their current condition or the appearance of new urologic symptoms. Compliance is encouraged with any medications and followup testing that is ordered. It is a privilege to participate in the urologic care of your patient. If you have any questions or concerns regarding treatment for the above conditions, or other urologic issues, please do not hesitate to contact me. The office telephone contact is [phone]. Sincerely, Dr Akhil Tripathi MD, MAD[facility] - Urology Compassionate Specialist Care for the Genitourinary System Coding Level of Care Code Tele Est Pt Level 4 (10753) Complex EM visit Add On G2211 Diagnoses Weak urinary stream R39.12 Erectile dysfunction, unspecified erectile dysfunction type N52.9 Erectile dysfunction type: unspecified Low testosterone R79.89
--- OUTSIDE RECORDS SUMMARY | 2025-02-18 15:57 | XMS_ITS | Encounter Summary ---
Author Organization [facility] Address [address] [place] [address] Care Team Providers Care Meat Stuffer Name Role Phone Unavailable Primary Care Provider Unavailabl e Encounter Details Date Type Department Care Team (Late st Contact Info) Description 04/27/2020 Lab Requisition EM LAB [facility] [address] [place] [phone] Ollie Chen PA-C [address] [place] [id number] Encounter for laboratory testing for COVID-19 virus [...] (COVID-19), Qual (04/27/2020 8:57 AM EDT) Pathologist [facility] SARS CoV 2 RNA, Qual NOT DETECTED NOT DETECTED 04/28/2020 4:00 PM EDT [facility] Comment: A Not Detected (negative) test result [...] providers and patients using the following websites: https://www.[employer]/home/Covid-19/HCP/NAAT/fact-sheet2 https://www.[employer]/home/Covid-19/Patients/NAAT/ fact-sheet2 This test has been authorized by the FDA under an Emergency Use Authorization (EUA) for use by authorized laboratories. Due to the current public health emergency, [facility] is receiving a high volume of samples [...] about COVID-19 can be found at the [facility] website: www.[employer].[facility] [facility]/Covid19. Microbiology Nasopharyngeal swab / Unknown 04/27/2020 8:57 AM EDT 04/27/2020 8:57 AM EDT Narrative [facility] [employer] [facility] - 04/28/2020 4:00 PM EDT Performing Organization Information: ?Site ID: [id number] ?Name: [facility] ?Address: [address] [place] [address] [address] [address] ?Director: MAXIM POLO MD [facility] License number [id number] Ollie Chen PA-C BODY FLUIDS AND STOOLS OR DERABLES Final Result [facility] documented in this encounter Visit Diagnoses Diagnosis Encounter for laboratory testing for COVID-19 virus documented in this encounter
--- OUTSIDE RECORDS SUMMARY | 2025-02-18 15:57 | XMS_ITS | Encounter Summary ---
Author Organization [facility] Address [address] [place] [address] Care Team Providers Care Institutional Research Coordinator Name Role Phone Unavailable Primary Care Provider Unavailabl e Encounter Details Date Type Department Care Team (Late st Contact Info) Description 06/08/2020 Lab Requisition EM LAB [facility] [address] [place] [phone] Olile Chen PA-C [address] [place] [address] Encounter for laboratory testing for COVID-19 virus [...] (COVID-19), Qual (06/08/2020 7:02 AM EDT) Pathologist [facility] SARS CoV 2 RNA, Qual NOT DETECTED [...] providers and patients using the following websites: https://www.[employer]av[employer]/home/Covid-19/HCP/QuestLDTP/ fact-sheet https://www.[employer]/home/Covid-19/Patients/QuestLDTP/ fact-sheet.html This test has been authorized by the FDA under an Emergency Use Authorization (EUA) for use by authorized laboratories. Due to the current public health emergency, [facility] is receiving a high volume of samples [...] about COVID-19 can be found at the [facility] website: www.[employer]/Covid19. Microbiology Nasopharyngeal swab / Unknown 06/08/2020 7:02 AM EDT 06/08/2020 7:02 AM EDT [facility] - 06/09/2020 3:00 PM EDT Performing Organization Information: ?Site ID: [id number] ?Name: [facility] ?Address: [address] [place] [address] [address] [address] ?Director: MAXIM POLO MD [facility] at [facility] License number [id number] Ollie Chen PA-C BODY FLUIDS AND STOOLS OR DERABLES Final Result Performing Organization Address City/State/[facility] de Phone Number [facility] documented in this encounter Visit Diagnoses Diagnosis Encounter for laboratory testing for COVID-19 virus documented in this encounter
--- OUTSIDE RECORDS SUMMARY | 2025-02-18 15:57 | XMS_ITS | Encounter Summary ---
Author Organization [facility] Address [address] [place] [address] Care Team Providers Care Caustics Loader Name Role Phone Unavailable Primary Care Provider Unavailabl e Encounter Details Date Type Department Care Team (Late st Contact Info) Description 07/13/2020 Lab Requisition EM LAB [facility] [address] [place] [phone] Ollie Chen PA-C [address] [place] [address] Encounter for laboratory testing for COVID-19 virus [...] (COVID-19), Qual (07/13/2020 8:08 AM EDT) Pathologist [facility] SARS CoV 2 RNA, Qual NOT DETECTED NOT DETECTED 07/14/2020 10:00 PM EDT [facility] Comment: [...] providers and patients using the following websites: https://www.[employer]/home/Covid-19/HCP/QuestLDTP/ fact-sheet https://www.[employer]/home/Covid-19/Patients/QuestLDTP/ fact-sheet.html This test has been authorized by the FDA under an Emergency Use Authorization (EUA) for use by authorized laboratories. Due to the current public health emergency, [facility] is receiving a high volume of samples [...] about COVID-19 can be found at the [facility] website: www.[employer]/Covid19. Microbiology Nasopharyngeal swab / Unknown 07/13/2020 8:08 AM EDT 07/13/2020 8:08 AM EDT Narrative [facility] - 07/14/2020 10:00 PM EDT Performing Organization Information: ?Site ID: [id number] ?Name: [employer] ?Address: [address] [place] [address] [address],[place] [address] ?Director: MAXIM POLO MD [facility]formed at [facility] License number [id number] Ollie Chen PA-C BODY FLUIDS AND STOOLS OR DERABLES Final Result Performing Organization Address City/State/[facility] de Phone Number [facility] documented in this encounter Visit Diagnoses Diagnosis Encounter for laboratory testing for COVID-19 virus documented in this encounter
--- OUTSIDE RECORDS SUMMARY | 2025-02-18 15:57 | XMS_ITS | Clinical Summary ---
Author Organization [facility] Address [address] [place] [address] Care Team Providers Care Director Of Clinical Trials Name Role Phone Unavailable Primary Care Provider [...]
== END 2025-02-18 16:06 | disposition home or self-care (01) ==
LOC: HO.HUSH 14:55
PROVIDERS: PCP Internal Medicine; Visit Provider Urology
DX: R39.12 Poor urinary stream (principal); N52.9 Male erectile dysfunction, unspecified; R79.89 Other specified abnormal findings of blood chemistry
CPT/HCPCS: 99214

== ENCOUNTER 2025-04-18 14:32 | Outpatient (AMB) | payer BC, SELFPAY ==
--- OUTSIDE RECORDS SUMMARY | 2025-04-18 14:35 | XMS_ITS | Encounter Summary ---
Author Organization [facility] Address [address] [place] [address] Care Team Providers Care Long Chain Beamer Name Role Phone Unavailable Primary Care Provider Unavailabl e Encounter Details Date Type Department Care Team (Late st Contact Info) Description 04/27/2020 Lab Requisition EM LAB [facility] [address] [place] [phone] Ollie Chen PA-C [address] [place] [address] Encounter for laboratory testing for COVID-19 virus [...] (COVID-19), Qual (04/27/2020 8:57 AM EDT) Pathologist [facility] SARS CoV 2 RNA, Qual NOT DETECTED NOT DETECTED 04/28/2020 4:00 PM EDT [facility] Comment: A Not Detected (negative) test [...] providers and patients using the following websites: https://www.[employer]/home/Covid-19/HCP/NAAT/fact-sheet2 https://www.[employer]/home/Covid-19/Patients/NAAT/ fact-sheet2 This test has been authorized by the FDA under an Emergency Use Authorization (EUA) for use by authorized laboratories. Due to the current public health emergency, [facility] is receiving a high volume of samples [...] including collection of an additional specimen. Methodology: Nucleic Acid Amplification Test (NAAT) includes PCR or TMA Additional information about COVID-19 can be found at the [facility] website: www.[employer]/Covid19. Microbiology Nasopharyngeal swab / Unknown 04/27/2020 8:57 AM EDT 04/27/2020 8:57 AM EDT Narrative [facility] - 04/28/2020 4:00 PM EDT Performing Organization Information: Site ID: [id number] Name: [facility] Address: [address] [place] [address],[place] [address] Director: MAXIM POLO MD [facility] number [id number] Ollie Chen PA-C BODY FLUIDS AND STOOLS OR DERABLES Final Result [facility] documented in this encounter Visit Diagnoses Diagnosis Encounter for laboratory testing for COVID-19 virus documented in this encounter
--- OUTSIDE RECORDS SUMMARY | 2025-04-18 14:35 | XMS_ITS ---
Author Name [facility] Organization Unknown Care Team Organization Name Specialty Phone Email Start Date End Da te Office of the [facility] Compt[facility] ler ([facility]) 08/23/2024 04/09/2025
[2025-04-18 14:36] VITALS: BP 130/74; PULSE 93; RESP 18; O2SAT 96; BMI 42.2
--- NOTE | 2025-04-18 14:36 | MHC.PC.OV ---
Vital Signs 04/18/25 14:36 Height 6 ft Weight 311 lb BMI 42.2 BP 130/74 Blood Pressure Location Lt brachial Position Sitting Respiration 18 Pulse 93 Pulse Source Pulse Oximeter Pulse Oximetry (%) 96 Oxygen Delivery Method Room Air Intake Visit Reasons: Annual [employer] Required: No Accompanied by: Self / Same As Patient Allergies environmental allergies Allergy (Mild, Verified 04/18/25 14:40) Sneezing Medication List - Last Reconciled 04/18/25 by Aidee Walker MD [Blood pressure monitor As directed] cholecalciferol (vitamin D3) 25 mcg PO DAILY 90 days losartan 25 mg PO DAILY omeprazole 20 mg PO DAILY sildenafil 100 mg PO ONCE PRN 30 days tadalafil 5 mg PO DAILY 90 days testosterone 1 pump topical DAILY 28 days Tobacco use date assessed: 04/18/25 Dental Screening Dental Screen Date: 04/18/25 Did you have a dental visit in the last 12 months?: Yes Did you have a dental problem in the last 6 months where you did not have access to dental care?: No Was dental information given to patient?: Patient has dentist HPI Annual PE HPI Details Physical exam - The patient is a 55-year-old male presenting with management of obesity and associated comorbidities. - Reports a sensation of increased weight gain, specifically an 11-pound gain within the recent period. - States experiencing significant postprandial fatigue, often shortly after meals. - Indicates difficulty in controlling appetite, noting it often feels overwhelming. - Acknowledges long-standing issues with maintaining a healthy weight, with a BMI calculated at 42.2, indicating morbid obesity. - Discloses a recent blood pressure measurement of 130/74, which is elevated compared to previous levels as confirmed in previous consultations. - Mentions a history of pre-diabetic fasting glucose readings, with a recent fasting glucose of 100 mg/dL. Also has a history of hypertension and lipid disorder - References an elevation in liver enzyme levels. Medical History: - Hypertension - Pre-Diabetes - Obesity - hypertension - lipid disorder Social History: - Acknowledges challenges in weight management, notably with eating habits, which includes difficulty in regulating appetite. - Experiences significant postprandial fatigue, impacting daily activities and likely contributing to increased weight gain. - Mentions avoiding eating during work hours to prevent feelings of sluggishness. Family History: - Maternal grandmother had diabetes later in life. Health Maintenance - Recent lab results indicate normal Complete Blood Count (CBC) and kidney function. - Fasting glucose level recorded at 100 mg/dL, indicative of pre-diabetes. - Liver function tests show elevated enzyme levels. - Patient counseled regarding diet and appetite control strategies, including portion control and dietary modifications focusing on higher proteins and low carbohydrates. Medications - Losartan 25 mg daily for hypertension - Omeprazole 20 mg for gastroesophageal reflux management - Medication from urology for an unspecified condition Employment - Patient works outside the home; no specific job details provided. Patient Instructions - Monitor blood pressure regularly. - Practice portion control by consuming half portions and waiting 20 minutes before consuming more. - Increase protein intake while reducing carbohydrate consumption. - Follow up with the pharmacy regarding the prescribed semaglutide injection for weight management. - Schedule blood tests as advised. Review of Systemsl. - General: No fever no chills - Neurological: No headaches no dizziness - Ear nose throat: No sore throat no hearing difficulty no ear pain - Cardiovascular: No syncope, no chest pain, no palpitations - Gastrointestinal: No nausea vomiting or diarrhea - Endocrine: No polyuria polydipsia no heat intolerance - Genitourinary: No dysuria - Skin: No new complaints Physical Exam General: Cooperative, healthy appearing, comfortable, no acute distress Orientation: Patient oriented x3 Head: Normal to inspection Ears: Within normal limit visually Nose: Normal external nose present Face and sinus: Normal facial exam Eyes: Appearance normal, extraocular movement intact pupils reactive Neck: Normal visual inspection and supple Respiratory: Normal respiratory effort and able to speak in complete sentences. Clear to auscultation, no stridor Cardiovascular: S1 and S2 RRR GI: Normal to inspection. Soft to palpation and nontender Skin: Turgor normal, no acute findings Neuro: Patient oriented x3, motor sensory intact, balance intact, tandem pass Extremities: Normal to inspection [facility] Medical History Sleep apnea COVID-19 vaccine series completed Difficulty urinating Obesity Lung nodule < 6cm on CT Erectile disorder, generalized, mild Lipid disorder Pre-diabetes Tobacco abuse Surgical History Hx of colonoscopy History of esophagogastroduodenoscopy (EGD) History of ankle surgery History of adenoidectomy Family History Father Bipolar disorder Alzheimer's disease, early onset Mother Breast cancer Fibromyalgia Maternal Grandfather No problems noted. Maternal Grandmother Type 2 diabetes mellitus Paternal Grandfather Pancreatic cancer Paternal Grandmother Lung cancer Smoker Sister No problems noted. Sister No problems noted. Son No problems noted. Other Mental health disorder Substance abuse Social History Household Members: Spouse Household Members Other:: and son- Housing: House Are you a primary care advocate to a significant other at home: No Do you presently have visiting nurse or other home services: No Alcohol intake: never Patient Tobacco Use Status: Current everyday Tobacco user Tobacco use type: Cigarette Cigarette Packs Per Day: 0.5 Cigarettes Per Day: 15 e-Cigarette/Vaping Use: Never Used Second Hand Smoke Exposure: No service: No Current occupational status: employed and retired Current occupation: Retired - [employer] Cognitive needs: No Hearing needs: No Vision needs: No Questionnaire PHQ-9 Over the last 2 weeks, how often have you been bothered by any of the following problems? 1. Little interest or pleasure in doing things: not at all 2. Feeling down, depressed, or hopeless: not at all 3. Trouble falling or staying asleep, or sleeping too much: not at all 4. Feeling tired or having little energy: not at all 5. Poor appetite or overeating: not at all 6. Feeling bad about yourself - or that you are a failure or have let yourself or your family down: not at all 7. Trouble concentrating on things, such as reading the newspaper or watching television: not at all 8. Moving or speaking so slowly that other people could have noticed. Or the opposite - being so fidgety or restless that you have been moving around a lot more than usual: not at all 9. Thoughts that you would be better off or of hurting yourself in some way: not at all Total score: 0 Depression Screening Interpretation: Negative Depression Screening Done: Yes 51195 - PHQ-9 Billing: Yes Source: Developed by Drs. Denny Ocampo, Manda Morales, Ankit Wadsworth and colleagues, with an educational argelia from [employer]. Thrive Questionnaire Date Thrive assessed: 09/25/24 I am a: Patient What is your living situation today?: I choose not to answer this question Within the past 12 months, did the food you bought not last and you didn't have the money to get more?: I choose not to answer this question Within the past 12 months, did you worry whether your food would run out before you got money to buy more?: I choose not to answer this question Do you have trouble paying for medicines?: I choose not to answer this question Do you have trouble getting transportation to medical appointments?: I choose not to answer this question Do you have trouble paying your heating and electricity bill?: I choose not to answer this question Do you have trouble taking care of your child, family member or friend?: I choose not to answer this question Do you have trouble with day-to-day activities such as bathing, preparing meals, shopping, managing finances, etc.?: I choose not to answer this question Are you currently unemployed and looking for a job?: I choose not to answer this question Are you interested in more education?: I choose not to answer this question Please select the resources that you would like help with: None Currently or been in a relationship where the following occur: I choose not to answer THRIVE Score: 0 AUDIT C Alcohol Use Questionnaire (AUDIT-C) 1. How often do you have a drink containing alcohol?: Never Total Score: 0 JASON-7 AMB Questionnaire JASON-7 Date JASON - 7 assessed: 07/17/24 Feeling nervous, anxious, or on edge: 0 = Not at all Not being able to stop or control worryin = Not at all Worrying too much about different things: 0 = Not at all Trouble relaxin = Not at all Being so restless that it is hard to sit still: 0 = Not at all Becoming easily annoyed or irritable: 0 = Not at all Feeling afraid as if something awful might happen: 0 = Not at all Total JASON-7 score (0-4 normal; 5-9 mild; 10-14 moderate; 15-21 severe): 0 Source: Developed by Drs. Denny Ocampo, Manda Morales, Ankit Wadsworth and colleagues, with an educational argelia from [employer]. Physical exam (Primary Care) Vital Signs: Last Vital Signs Pulse 93 04/18/25 14:36 Resp 18 04/18/25 14:36 BP 130/74 04/18/25 14:36 Pulse Ox 96 04/18/25 14:36 Oxygen Delivery Method Room Air 04/18/25 14:36 BMI result Body Mass Index 42.2 Tobacco/Smoking Status: Tobacco use Status Tobacco use date assessed 04/18/25 04/18/25 14:38 Patient Tobacco Use Status Current everyday Tobacco 04/18/25 14:38 Tobacco use type Cigarette 04/18/25 14:38 e-Cigarette/Vaping Use Never Used 04/18/25 14:38 PHQ-9: PHQ-9 Score PHQ-9: Total score 0 04/18/25 15:07 Depression Screening Interpretation: Negative Thrive Assessment: Date of Thrive Assessment Date Thrive assessed 09/25/24 04/18/25 14:38 Currently or been in a relationship where the following occur: I choose not to answer Coding Level of Care Code Est Pt Level 3 (66982) Est Pt Prev Care 40-64y(04291) Diagnoses Encounter for general adult medical examination with abnormal findings Z00.01 Hypertension, essential I10 Pre-diabetes R73.03 Lipid disorder E78.9 Morbid obesity due to excess calories E66.01 Vitamin D deficiency E55.9 Obstructive sleep apnea on CPAP G47.33 Additional Codes PHQ-9 - 29692 - PHQ-9 Billing: Yes ([id number]) Assessment & Plan Assessment & Plan (1) Encounter for general adult medical examination with abnormal findings: Code(s): Z00.01 - Encounter for general adult medical examination with abnormal findings Category: Medical (2) Hypertension, essential: Code(s): I10 - Essential (primary) hypertension Category: Medical (3) Pre-diabetes: Code(s): R73.03 - Prediabetes Category: Medical (4) Lipid disorder: Code(s): E78.9 - Disorder of lipoprotein metabolism, unspecified Category: Medical (5) Morbid obesity due to excess calories: Code(s): E66.01 - Morbid (severe) obesity due to excess calories Category: Medical (6) Vitamin D deficiency: Code(s): E55.9 - Vitamin D deficiency, unspecified Category: Medical (7) Obstructive sleep apnea on CPAP: Code(s): G47.33 - Obstructive sleep apnea (adult) (pediatric) Category: Medical Plan Physical exam - The patient is a 55-year-old male presenting with management of obesity and associated comorbidities. - Reports a sensation of increased weight gain, specifically an 11-pound gain within the recent period. - States experiencing significant postprandial fatigue, often shortly after meals. - Indicates difficulty in controlling appetite, noting it often feels overwhelming. - Acknowledges long-standing issues with maintaining a healthy weight, with a BMI calculated at 42.2, indicating morbid obesity. - Discloses a recent blood pressure measurement of 130/74, which is elevated compared to previous levels as confirmed in previous consultations. - Mentions a history of pre-diabetic fasting glucose readings, with a recent fasting glucose of 100 mg/dL. Also has a history of hypertension and lipid disorder - References an elevation in liver enzyme levels. Medical History: - Hypertension - Pre-Diabetes - Obesity - hypertension - lipid disorder Social History: - Acknowledges challenges in weight management, notably with eating habits, which includes difficulty in regulating appetite. - Experiences significant postprandial fatigue, impacting daily activities and likely contributing to increased weight gain. - Mentions avoiding eating during work hours to prevent feelings of sluggishness. Family History: - Maternal grandmother had diabetes later in life. Health Maintenance - Recent lab results indicate normal Complete Blood Count (CBC) and kidney function. - Fasting glucose level recorded at 100 mg/dL, indicative of pre-diabetes. - Liver function tests show elevated enzyme levels. - Patient counseled regarding diet and appetite control strategies, including portion control and dietary modifications focusing on higher proteins and low carbohydrates. Medications - Losartan 25 mg daily for hypertension - Omeprazole 20 mg for gastroesophageal reflux management - Medication from urology for an unspecified condition Employment - Patient works outside the home; no specific job details provided. Patient Instructions - Monitor blood pressure regularly. - Practice portion control by consuming half portions and waiting 20 minutes before consuming more. - Increase protein intake while reducing carbohydrate consumption. - Follow up with the pharmacy regarding the prescribed semaglutide injection for weight management. - Schedule blood tests as advised. Orders: Orders Comprehensive Riddle. Panel Fast Today E55.9 - Vitamin D deficiency, unspecified, E66.01 - Morbid (severe) obesity due to excess calories, E78.9 - Disorder of lipoprotein metabolism, unspecified, I10 - Essential (primary) hypertension, R73.03 - Prediabetes, Z00.01 - Encounter for general adult medical examination with abnormal findings Lipid Panel Today E55.9 - Vitamin D deficiency, unspecified, E66.01 - Morbid (severe) obesity due to excess calories, E78.9 - Disorder of lipoprotein metabolism, unspecified, I10 - Essential (primary) hypertension, R73.03 - Prediabetes, Z00.01 - Encounter for general adult medical examination with abnormal findings Vitamin D 25-OH (D2 and D3) Today E55.9 - Vitamin D deficiency, unspecified, E66.01 - Morbid (severe) obesity due to excess calories, E78.9 - Disorder of lipoprotein metabolism, unspecified, I10 - Essential (primary) hypertension, R73.03 - Prediabetes, Z00.01 - Encounter for general adult medical examination with abnormal findings Amylase Today E66.01 - Morbid (severe) obesity due to excess calories Lipase Today E66.01 - Morbid (severe) obesity due to excess calories Complete Blood Count Auto Diff Today E55.9 - Vitamin D deficiency, unspecified, E66.01 - Morbid (severe) obesity due to excess calories, E78.9 - Disorder of lipoprotein metabolism, unspecified, I10 - Essential (primary) hypertension, R73.03 - Prediabetes, Z00.01 - Encounter for general adult medical examination with abnormal findings Vitamin B12 Today E55.9 - Vitamin D deficiency, unspecified, E66.01 - Morbid (severe) obesity due to excess calories, E78.9 - Disorder of lipoprotein metabolism, unspecified, I10 - Essential (primary) hypertension, R73.03 - Prediabetes, Z00.01 - Encounter for general adult medical examination with abnormal findings TSH reflex Free T4 Today E55.9 - Vitamin D deficiency, unspecified, E66.01 - Morbid (severe) obesity due to excess calories, E78.9 - Disorder of lipoprotein metabolism, unspecified, I10 - Essential (primary) hypertension, R73.03 - Prediabetes, Z00.01 - Encounter for general adult medical examination with abnormal findings Hemoglobin A1c Today E55.9 - Vitamin D deficiency, unspecified, E66.01 - Morbid (severe) obesity due to excess calories, E78.9 - Disorder of lipoprotein metabolism, unspecified, I10 - Essential (primary) hypertension, R73.03 - Prediabetes, Z00.01 - Encounter for general adult medical examination with abnormal findings Medications: New semaglutide (weight loss) (Jena) administer weeks 1 through 4 of therapy 0.25 mg (0.5 mL) subcut QWEEK 2 mL 0RF E66.01 - Morbid (severe) obesity due to excess calories, E78.9 - Disorder of lipoprotein metabolism, unspecified, I10 - Essential (primary) hypertension, R73.03 - Prediabetes
== END 2025-04-18 15:09 | disposition home or self-care (01) ==
LOC: HO.HMCC 14:32
PROVIDERS: PCP Internal Medicine; Visit Provider Internal Medicine
DX: Z00.01 Encounter for general adult medical examination with abnormal findings (principal); I10 Essential (primary) hypertension; E66.01 Morbid (severe) obesity due to excess calories; Z68.41 Body mass index [BMI] 40.0-44.9, adult; R73.03 Prediabetes; E78.9 Disorder of lipoprotein metabolism, unspecified; E55.9 Vitamin D deficiency, unspecified; G47.33 Obstructive sleep apnea (adult) (pediatric)

== ENCOUNTER → 2025-04-18 14:32 | Outpatient (BNVA) | payer BC, SELFPAY | PROVIDERS: PCP Internal Medicine; Visit Provider Internal Medicine | DX: Z00.01 Encounter for general adult medical examination with abnormal findings (principal); R53.83 Other fatigue; E66.01 Morbid (severe) obesity due to excess calories; I10 Essential (primary) hypertension; E78.9 Disorder of lipoprotein metabolism, unspecified; R73.03 Prediabetes; E55.9 Vitamin D deficiency, unspecified; G47.33 Obstructive sleep apnea (adult) (pediatric); Z68.41 Body mass index [BMI] 40.0-44.9, adult | CPT/HCPCS: 96127 ==

== ENCOUNTER 2025-09-02 13:04 | Outpatient (AMB) | payer BC, SELFPAY ==
--- NOTE | 2025-09-02 13:07 | A.OFFPC_ITS ---
Vital Signs 09/02/25 13:08 Height 6 ft Weight 304 lb BMI 41.2 BP 126/74 Blood Pressure Location Lt brachial Position Sitting Pulse 88 Pulse Source Pulse Oximeter Pulse Oximetry (%) 97 Intake Visit Reasons: weight management Allergies environmental allergies Allergy (Mild, Verified 09/02/25 13:08) Sneezing Medication List - Last Reconciled 09/02/25 by Aidee Walker MD [Blood pressure monitor As directed] cholecalciferol (vitamin D3) 25 mcg PO DAILY 90 days losartan 25 mg PO DAILY omeprazole 20 mg PO DAILY semaglutide (weight loss) (Wegovy) 0.25 mg (0.5 mL) subcut QWEEK sildenafil 100 mg PO ONCE PRN 30 days tadalafil 5 mg PO DAILY 90 days testosterone 1 pump topical DAILY 28 days Tobacco use date assessed: 04/18/25 Dental Screening Dental Screen Date: 04/18/25 HPI HPI Comments History of Present Illness Details History of Present Illness This 55-year-old individual presents for a follow-up on chronic conditions and weight management. Obesity: - The patient was scheduled for a 4-jonny h follow-up after a previous weight gain. - Current weight is 304 lbs, which was 3 11 lbs at the last visit in April. - After adjusting for boots, the patient 's weight is estimated to be around 300 lbs, which is the same as it was in September of the previous year. - The patient's weight was 268 lbs in Ma of the prior year, indicating a gain of over 30 pounds since then. - The patient reports trying to lose omar ght by walking an average of seven miles a day and improving diet, but is disappointed with the results.. Prediabetes: - The patient has a known history of pre diabetes. - The patient has not completed the requ ired lab work to monitor blood sugar levels. Hypertension: - The patient is scheduled for follow-up visits every six months due to blood pressure management. - The patient takes losartan 25 mg for h ypertension. Medical History: - Prediabetes - Hypertension - Obesity - History of GERD, managed with as-neede d omeprazole Medications: - Losartan 25 mg daily for hypertension. - Omeprazole as needed, prescribed by a field ironworker. - Testosterone 110 mg daily, prescribed by a urologist. - Tadalafil daily, prescribed by a urolo gist. Social History: - Exercise: Reports walking an average o f seven miles a day for the past two weeks, plus walking at work. - Gym: The patient has a gym membership but needs to attend more frequently, preferably in the morning. - Nutrition: The patient typically does not eat lunch and eats a large dinner late, which the patient identifies as a problem. - Living Situation: Lives with . Family History: - The patient reports a family history o f weight gain at a similar age, mentioning the patient's father and uncle. Diagnostic Results: - Weight History: - Current visit: 304 lbs (approximately 300 lbs adjusted for clothing). - April visit: 311 lbs. - September last year: 300 lbs. - February of the previous year: 268 lbs. [facility] Medical History Sleep apnea COVID-19 vaccine series completed Difficulty urinating Obesity Lung nodule < 6cm on CT Erectile disorder, generalized, mild Lipid disorder Pre-diabetes Tobacco abuse Surgical History Hx of colonoscopy History of esophagogastroduodenoscopy (EGD) History of ankle surgery History of adenoidectomy Family History Father Bipolar disorder Alzheimer's disease, early onset Mother Breast cancer Fibromyalgia Maternal Grandfather No problems noted. Maternal Grandmother Type 2 diabetes mellitus Paternal Grandfather Pancreatic cancer Paternal Grandmother Lung cancer Smoker Sister No problems noted. Sister No problems noted. Son No problems noted. Other Mental health disorder Substance abuse Social History Household Members: Spouse Household Members Other:: and son- Housing: House Are you a primary care aid to a significant other at home: No Do you presently have visiting nurse or other home services: No Alcohol intake: never Patient Tobacco Use Status: Current everyday Tobacco user Tobacco use type: Cigarette Cigarette Packs Per Day: 0.5 Cigarettes Per Day: 15 e-Cigarette/Vaping Use: Never Used Second Hand Smoke Exposure: No service: No Current occupational status: employed and retired Current occupation: Retired - [employer] Cognitive needs: No Hearing needs: No Vision needs: No Questionnaire Thrive Questionnaire Date Thrive assessed: 04/18/25 I am a: Patient What is your living situation today?: I choose not to answer this question Within the past 12 months, did the food you bought not last and you didn't have the money to get more?: I choose not to answer this question Within the past 12 months, did you worry whether your food would run out before you got money to buy more?: I choose not to answer this question Do you have trouble paying for medicines?: I choose not to answer this question Do you have trouble getting transportation to medical appointments?: I choose not to answer this question Do you have trouble paying your heating and electricity bill?: I choose not to answer this question Do you have trouble taking care of your child, family member or friend?: I choose not to answer this question Do you have trouble with day-to-day activities such as bathing, preparing meals, shopping, managing finances, etc.?: I choose not to answer this question Are you currently unemployed and looking for a job?: I choose not to answer this question Are you interested in more education?: I choose not to answer this question Please select the resources that you would like help with: None Currently or been in a relationship where the following occur: I choose not to answer THRIVE Score: 0 JASON-7 AMB Questionnaire JASON-7 Date JASON - 7 assessed: 07/17/24 Source: Developed by Drs. Denny Ocampo, Manda Morales, Ankit Wadsworth and colleagues, with an educational argelia from [employer]. Review of Systems Narrative Review of Systems - General: No fever no chills - Neurological: No headaches no dizziness - Ear nose throat: No sore throat no hearing difficulty no ear pain - Cardiovascular: No syncope, no chest pain, no palpitations - Gastrointestinal: No nausea vomiting or diarrhea - Endocrine: No polyuria polydipsia no heat intolerance - Genitourinary: No dysuria , no blood in urine Physical exam (Primary Care) Vital Signs: Last Vital Signs Pulse 88 09/02/25 13:08 BP 126/74 09/02/25 13:08 Pulse Ox 97 09/02/25 13:08 BMI result Body Mass Index 41.2 Tobacco/Smoking Status: Tobacco use Status Tobacco use date assessed 04/18/25 09/02/25 13:08 Patient Tobacco Use Status Current everyday Tobacco 09/02/25 13:08 Tobacco use type Cigarette 09/02/25 13:08 e-Cigarette/Vaping Use Never Used 09/02/25 13:08 Thrive Assessment: Date of Thrive Assessment Date Thrive assessed 04/18/25 09/02/25 13:08 Currently or been in a relationship where the following occur: I choose not to answer Narrative Physical Exam - General: No acute distress - HEENT: No acute findings - Neck: Supple - Respiratory system: Able to talk in full sentences, no audible wheeze - Cardiovascular: S1-S2 regular in rate and rhythm - Gastrointestinal: No pain - Extremities: No new findings - MEDICAID COLLECTION SPECIALIST: Alert awake oriented x3 motor intact - Skin: Normal turgor Coding Level of Care Code Est Pt Level 3 (56296) Diagnoses Hypertension, essential I10 Pre-diabetes R73.03 Lipid disorder E78.9 Morbid obesity due to excess calories E66.01 Assessment & Plan Assessment & Plan (1) Hypertension, essential: Code(s): I10 - Essential (primary) hypertension Category: Medical (2) Pre-diabetes: Code(s): R73.03 - Prediabetes Category: Medical (3) Lipid disorder: Code(s): E78.9 - Disorder of lipoprotein metabolism, unspecified Category: Medical (4) Morbid obesity due to excess calories: Code(s): E66.01 - Morbid (severe) obesity due to excess calories Category: Medical Plan Problem List - Obesity - Prediabetes - Hypertension - Preventative care: Weight management Plan - The patient is advised to complete lab work in the first week of September to monitor prediabetes. - Continue taking losartan 25 mg for hypertension. - The patient was educated on weight management, including calorie counting and making lifestyle changes. - A weight loss target of 265 lbs has been set. - The patient is scheduled to follow up in April for a physical exam. - A new lab order will be placed for the patient to complete before the April appointment. Orders: Orders Hemoglobin A1c 6 Months E66.01 - Morbid (severe) obesity due to excess calories, E78.9 - Disorder of lipoprotein metabolism, unspecified, I10 - Essential (primary) hypertension, R73.03 - Prediabetes Complete Blood Count Auto Diff 6 Months E66.01 - Morbid (severe) obesity due to excess calories, E78.9 - Disorder of lipoprotein metabolism, unspecified, I10 - Essential (primary) hypertension, R73.03 - Prediabetes Comprehensive Met. Panel 6 Months E66.01 - Morbid (severe) obesity due to excess calories, E78.9 - Disorder of lipoprotein metabolism, unspecified, I10 - Essential (primary) hypertension, R73.03 - Prediabetes Medications: Discontinued semaglutide (weight loss) ([place]) administer weeks 1 through 4 of therapy Discontinued Reason: Doctor's Order 0.25 mg (0.5 mL) subcut QWEEK 2 mL 0RF E66.01 - Morbid (severe) obesity due to excess calories, E78.9 - Disorder of lipoprotein metabolism, unspecified, I10 - Essential (primary) hypertension, R73.03 - Prediabetes
[2025-09-02 13:08] VITALS: BP 126/74; PULSE 88; O2SAT 97; BMI 41.2
== END 2025-09-02 13:39 | disposition home or self-care (01) ==
LOC: HO.HMCC 13:04
PROVIDERS: PCP Internal Medicine; Visit Provider Internal Medicine
DX: I10 Essential (primary) hypertension (principal); R73.03 Prediabetes; E66.01 Morbid (severe) obesity due to excess calories; Z68.41 Body mass index [BMI] 40.0-44.9, adult; E78.9 Disorder of lipoprotein metabolism, unspecified

== ENCOUNTER 2025-09-29 10:37 | Outpatient (REF) | payer BC, SELFPAY ==
[2025-09-29 11:48] LABS: Hematocrit 49.4 % (42.0-52.0); Hemoglobin 16.5 g/dl (14.0-18.0); Imm Gran Abs Auto 0.03 X10*3/uL (0.00-0.03); Imm Gran Pct Auto 0.3 % (0.0-0.4); Lymphocytes Absolute Auto 2.2 X10*3/uL (1.2-4.9); MANUAL DIFF FLAG SCAN; Mean Corpuscular HGB Conc 33.4 g/dl (31.0-36.0); Mean Corpuscular Hemoglobin 30.7 pg (27.0-33.0); Mean Corpuscular Volume 92.0 fL (80.0-98.0); NRBC Abs Auto 0.000 X10*3/uL (0.0-0.012); NRBC Pct Auto 0.0 /100WBC (0.0-0.2); PLT CLUMP 1; Red Blood Count 5.37 X10*6/uL (4.60-5.80); SCAN SMEAR FLAG 1
[2025-09-29 12:08] LABS: Platelet Count 174 X10*3/uL (160-400); White Blood Count 9.3 X10*3/uL (4.8-10.8)
[2025-09-29 12:14] LABS: Alanine Aminotransferase 85 U/L (0-40); Albumin Level 4.7 g/dL (3.5-5.0); Alkaline Phosphatase 49 U/L (39-117); Amylase 53 U/L (28-100); Anion Gap 14 (12-20); Aspartate Amino Transferase 50 U/L (5-37); Blood Urea Nitrogen 16 mg/dL (9-16); Calcium 9.4 mg/dL (8.4-10.2); Carbon Dioxide 23 mmol/L (22-29); Chloride 107 mmol/L (96-108); Cholesterol 222 mg/dL (<200); Estimated Glomerular Filt Rate > 60; HDL Cholesterol 35 mg/dL (>40); Lipase 14 U/L (8-78); Potassium 4.5 mmol/L (3.3-5.1); Sodium 139 mmol/L (135-145); Total Protein 7.0 g/dL (6.5-8.0); Triglycerides 307 mg/dL (<150)
[2025-09-29 12:26] LABS: Prostate Specific Antigen 11.97 ng/mL (<0.05-4.0)
[2025-09-29 12:30] LABS: Vitamin B12 387 pg/mL (200-900)
== END 2025-09-29 10:38 | disposition home or self-care (01) ==
LOC: HO.LAB 10:37
PROVIDERS: Absent Provider Urology; PCP Internal Medicine; Visit Provider Internal Medicine
DX: Z00.01 Encounter for general adult medical examination with abnormal findings (principal); Z12.5 Encounter for screening for malignant neoplasm of prostate; R79.89 Other specified abnormal findings of blood chemistry; E66.01 Morbid (severe) obesity due to excess calories; R73.03 Prediabetes; I10 Essential (primary) hypertension; E55.9 Vitamin D deficiency, unspecified; E78.9 Disorder of lipoprotein metabolism, unspecified
CPT/HCPCS: 36415; 80053; 80061; 82150; 82306; 82607; 83036; 83690; 84153; 84403; 84443; 85025; 85027